=== PATIENT | male | born 1940 | race Caucasian/White ===

== ENCOUNTER 2017-12-27 11:03 | Inpatient (IN) | payer MEDICARE, OTHER ==
[2017-12-27] VITALS (9 sets, daily range): BP systolic 85–138; BP diastolic 72–112
[~2017-12-27] VITALS: Ht 185.4 cm; Wt 96.8 kg
[~2017-12-27 11:03] MED LIST: AMLODIPINE; HYDROCHLOROTHIAZIDE; METOPROLOL; MULTIVITAMIN
[2017-12-27] MEDS ORDERED: ONDANSETRON HCL INJ 2 MG/ML VIAL IV STA (11:29)
[2017-12-27] MEDS ORDERED: SODIUM CHLORIDE 0.9% 1000ML 1,000 ML IV STA (11:29)
[2017-12-27] MEDS ORDERED: ASPIRIN 81 MG CHEW TAB PO ONE ×3 (11:30→14:00)
[2017-12-27 11:47] LABS: BASOPHILS % 0.2 % (0.0-1.0); HEMOGLOBIN 14.8 g/dL (14.0-18.0); LYMPHOCYTES # (AUTO) 0.7 (1.0-3.2); LYMPHOCYTES % 3.7 % (18.0-39.1); MEAN CORPUSCULAR HEMOGLOBIN 28.7 pg (28-32); MEAN CORPUSCULAR HGB CONC 32.9 g/dL (31-35); MEAN CORPUSCULAR VOLUME 87.2 fL (81-99); MONOCYTES # (AUTO) 1.2 (0.2-0.8); MONOCYTES % 6.4 % (4.4-11.3); NEUTROPHILS # (AUTO) 16.5 (2.1-6.9); NEUTROPHILS % 87.1 % (38.7-80.0); PLATELET COUNT 153 x10e3/uL (140-360); RED BLOOD COUNT 5.16 x10e6/uL (4.3-5.7); RED CELL DISTRIBUTION WIDTH 16.5 % (11.7-14.4)
[2017-12-27 12:02] LABS: INR 1.25; PROTHROMBIN TIME 14.8 seconds (11.9-14.5)
[2017-12-27 12:13] LABS: ALBUMIN 3.8 g/dL (3.5-5.0); ALBUMIN/GLOBULIN RATIO 0.8 (0.8-2.0); ANION GAP 22.3 mmol/L (8-16); CALCIUM 9.8 mg/dL (8.4-10.2); CREATININE, SERUM 2.74 mg/dL (0.72-1.25); POTASSIUM 4.3 mmol/L (3.5-5.1)
[2017-12-27 12:20] LABS: CREATINE KINASE MB 23.4 ng/mL (0-5.0)
[2017-12-27] MEDS ORDERED: METOPROLOL TARTRATE INJ 1 MG/ML VIAL IV ONE (12:45)
--- NOTE | 2017-12-27 13:01 | Diagnostic Imaging Report ---
EXAM: ABDOMEN-1VIEW (KUB), DATE: 12/27/2017 11:29 AM INDICATION: Pain. Urinary retention. COMPARISON: None FINDINGS: LINES/TUBES: None BOWEL PATTERN: No evidence for obstruction. SOFT TISSUES: Bifurcated aorto iliac graft. Median sternotomy wires. Calcifications of the descending thoracic aorta. Vascular calcifications. LUNG BASES: Increased density in the lower left hemithorax may represent atelectasis and/or effusion.. BONES: No acute findings. Degenerative changes. IMPRESSION: Nonspecific, nonobstructive bowel gas pattern. Signed by: Dr. Heather Marquez M.D. on 12/27/2017 12:58 PM
--- NOTE | 2017-12-27 13:08 | Diagnostic Imaging Report ---
Examination: Single AP view of the chest. COMPARISON: None. INDICATION: Altered mental status. DISCUSSION: Lines/tubes: None. Lungs: Prominence of the pulmonary vasculature bilaterally may be part related to suboptimal inflation. Patchy density in the lower lobes, left greater than right may represent atelectasis, however, cannot exclude pneumonia including aspiration in the proper clinical setting. Pleura: There is no pneumothorax. Possible small left pleural effusion. Heart and mediastinum: The cardiac silhouette is moderately enlarged. Median sternotomy wires. Bones and soft tissues: No acute bony abnormalities. Degenerative changes in the thoracic spine. Orthopedic anchors projected on the right humeral head. Bilateral chronic rotator cuff pathology. IMPRESSION: 1. Bilateral lower lobe atelectasis versus pneumonia. 2. Mild bilateral pulmonary venous congestion. Signed by: Dr. Heather Marquez M.D. on 12/27/2017 1:04 PM
--- NOTE | 2017-12-27 13:12 | Diagnostic Imaging Report ---
ADDENDUM #1 Dose modulation, iterative reconstruction, and/or weight based adjustment of the mA/kV was utilized to reduce the radiation dose to as low as reasonably achievable. Signed by: Dr. Yusuf Hameed M.D. on 01/06/2018 4:47 PM ORIGINAL REPORT Exam: Head CT without contrast History: Altered mental status Comparison studies: Head CT 02/27/2011 and brain MRI 02/28/2011 Technique: Axial images were obtained from the skull base to the vertex. Coronal and sagittal images reconstructed from the axial data. Intravenous contrast: None Findings: Scalp: No abnormalities. Bones: Old bilateral parietal emerald holes. Brain sulci: Mildly prominent Ventricles: Moderate mild to moderate compensatory dilatation. No hydrocephalus. Extra-axial spaces: No masses, no fluid collection. Parenchyma: No mass, acute hemorrhage or large acute cortical vascular insults. Multiple chronic cortical and subcortical insults with encephalomalacia and/or gliosis (left orbitofrontal/frontal opercular, left superior temporal, left lateral occipital lobe, multifocal in the right superior and middle frontal lobes, along the perirolandic gyri, right superior and inferior parietal lobes and right occipital lobe). Some insults within the right frontal and right parietal lobes were acute on the brain MRI of 02/28/2011. Other chronic insult such as that in the right occipital lobe was not present on the previous CT MRI of 2010. Unchanged chronic lacunar insult in the bilateral subinsular white matter. Left subinsular insult was previously hemorrhagic as indicated on the previous MRI. Scattered ill-defined and confluent hypodensities throughout the supratentorial white matter are nonspecific but most compatible with chronic microvascular ischemic changes. Sellar/suprasellar region: No abnormalities. Craniocervical junction: Patent foramen magnum. No Chiari one malformation. Incidental findings: Atherosclerotic calcifications in the carotid siphons and intradural vertebral arteries. Bilateral intraocular lens replacements. IMPRESSION: No mass, acute hemorrhage or large acute cortical territorial vascular insult. Chronic findings: 1. Multiple chronic cortical and subcortical insults as described. 2. Moderate chronic microvascular ischemic changes with chronic bilateral subinsular lacunar insults. 3. Mild generalized volume loss. 4. 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 If there is concern for acute on chronic ischemia, brain MRI without/with IV contrast could further evaluate as warranted. Signed by: Dr. Yusuf Hameed M.D. on 12/27/2017 1:08 PM
[2017-12-27] MEDS ORDERED: ENOXAPARIN SODIUM INJ 100 MG/ML SYR SC STA (13:27)
[2017-12-27] MEDS ORDERED: METOPROLOL TARTRATE 25 MG TAB PO SCH (13:45)
[2017-12-27] MEDS ORDERED: ENOXAPARIN SODIUM INJ 100 MG/ML SYR SC SCH ×2 (13:45→14:30)
[2017-12-27] MEDS ORDERED: ETOMIDATE 2 MG/ML 10 ML INJ IV ONE (14:59)
[2017-12-27] MEDS ORDERED: WATER STERILE 10 ML VIAL ONE (14:59)
[2017-12-27] MEDS ORDERED: SUCCINYLCHOLINE CHLORIDE 20 MG/ML 10ML VIAL ONE (14:59)
[2017-12-27 15:25] LABS: CLARITY,URINE HAZY (CLEAR); COLOR,URINE ORANGE (YELLOW); LEUKOCYTE ESTERASE ,URINE NEGATIVE (NEGATIVE); NITRITE,URINE NEGATIVE (NEGATIVE)
[2017-12-27 15:26] LABS: BILIRUBIN,URINE 2+ (NEGATIVE); KETONES,URINE TRACE (NEGATIVE); PROTEIN,URINE DIPSTICK 1+ (NEGATIVE); URINE UROBILINOGEN 0.2 mg/dL (0.2 - 1)
[2017-12-27] MEDS ORDERED: VANCOMYCIN 1GM/NS 250 ML 250 ML IV ONE (15:30)
[2017-12-27 15:35] LABS: BACTERIA,URINE MANY /HPF; EPITHELIAL CELLS,URINE FEW /LPF
[2017-12-27] MEDS ORDERED: PIPERACILLIN/TAZO 2.25 GM 50 ML IV SCH ×2 (16:00→22:00)
[2017-12-27] MEDS ORDERED: ACETAMINOPHEN 325 MG TAB PO PRN (16:45)
[2017-12-27] MEDS ORDERED: ONDANSETRON HCL INJ 2 MG/ML VIAL IV PRN (16:45)
[2017-12-27 17:08] LABS: BASOPHILS % 0.2 % (0.0-1.0); HEMATOCRIT 43.1 % (38.2-49.6); HEMOGLOBIN 13.9 g/dL (14.0-18.0); LYMPHOCYTES # (AUTO) 0.8 (1.0-3.2); LYMPHOCYTES % 4.7 % (18.0-39.1); MEAN CORPUSCULAR HEMOGLOBIN 28.6 pg (28-32); MEAN CORPUSCULAR HGB CONC 32.3 g/dL (31-35); MEAN CORPUSCULAR VOLUME 88.7 fL (81-99); MONOCYTES # (AUTO) 1.4 (0.2-0.8); MONOCYTES % 7.7 % (4.4-11.3); NEUTROPHILS % 85.4 % (38.7-80.0); PLATELET COUNT 123 x10e3/uL (140-360); RED BLOOD COUNT 4.86 x10e6/uL (4.3-5.7); RED CELL DISTRIBUTION WIDTH 16.8 % (11.7-14.4)
[2017-12-27 17:31] LABS: ALBUMIN 3.2 g/dL (3.5-5.0); ALBUMIN/GLOBULIN RATIO 0.8 (0.8-2.0); ANION GAP 18.5 mmol/L (8-16); CALCIUM 8.8 mg/dL (8.4-10.2); CREATININE, SERUM 2.45 mg/dL (0.72-1.25); POTASSIUM 4.5 mmol/L (3.5-5.1)
--- NOTE | 2017-12-27 17:31 | Diagnostic Imaging Report ---
EXAM: CT Abdomen and Pelvis WITHOUT contrast INDICATION: Elevated LFTs. Pancreatitis. COMPARISON: None. TECHNIQUE: Abdomen and pelvis were scanned utilizing a multidetector helical scanner from the lung base to the pubic symphysis without administration of IV contrast. Absence of intravenous contrast decreases sensitivity for detection of focal lesions and vascular pathology. Coronal and sagittal reformations were obtained. Routine protocol was performed. IV CONTRAST: None. ORAL CONTRAST: Water RADIATION DOSE: Total DLP: 1524.20 mGy*cm Estimated effective dose: (DLP x 0.015 x size factor) mSv COMPLICATIONS: None FINDINGS: LINES and TUBES: None. LOWER THORAX: Bibasilar atelectasis the heart is moderately enlarged. Mediastinal wires. A fluoroscopic calcifications. HEPATOBILIARY: No focal hepatic lesions. No biliary ductal dilation. GALLBLADDER: 1.8 cm lamellated calculus within the gallbladder neck. No wall thickening. SPLEEN: No splenomegaly. PANCREAS: Mild diffuse pancreatic edema, associated with mild peripancreatic fat stranding and fluid, particularly about the tail is seen on axial image 28 series 4. No focal masses or ductal dilatation. . ADRENALS: No adrenal nodules KIDNEYS/URETERS: No hydronephrosis. No cystic or solid mass lesions. 1.8 cm above than water attenuation lesion in the lower pole of the left kidney is indeterminate. Right kidney on image 36. 1.8 cm cyst in the anterior interpolar region of the right kidney. 2 mm nonobstructing calculus in the upper pole of the right kidney. GI TRACT: No abnormal distention, wall thickening, or evidence of bowel obstruction. Diverticulosis predominantly involving the sigmoid without CT evidence of acute diverticulitis. Appendix is normal. PELVIC ORGANS/BLADDER: Urinary bladder decompressed by Hernandez catheter. Bladder contains air from instrumentation LYMPH NODES: No lymphadenopathy. 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 PERITONEUM / RETROPERITONEUM: No free air or fluid. BONES: There are degenerative changes in the lumbar spine. SOFT TISSUES: Small fat-containing left inguinal hernia. Tiny right fat-containing inguinal hernia. IMPRESSION: 1. Acute interstitial pancreatitis. 2. Cholelithiasis. No definite choledocholithiasis, however, if concern, consider further evaluation with MRCP. 3. 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 4. Colonic diverticulosis without acute diverticulitis. 5. 1.8 cm above than water attenuation lesion in the lower pole of the left kidney is indeterminate. Consider further evaluation with ultrasound of kidneys. Alternatively this may be evaluated the time of MRI. Signed by: Dr. Heather Marquez M.D. on 12/27/2017 5:28 PM
[2017-12-27] MEDS: MEROPENEM 500 MG VIAL IV SCH ×2 (17:45→23:45)
[2017-12-27] MEDS: SODIUM CHLORIDE 0.9% 1000ML 1,000 ML IV SCH ×2 (17:45→22:51)
[2017-12-27] MEDS ORDERED: MEROPENEM 500MG 500 MG in SODIUM CHLORIDE 0.9% 50ML 50 ML IV SCH (18:00)
--- NOTE | 2017-12-27 20:34 | History and Physical ---
CHIEF COMPLAINT: Encephalopathy and confusion. HISTORY OF PRESENT ILLNESS: A 77-year-old male with past medical history of Alzheimer's dementia who has progressively gotten worse according to the son at bedside. He also has a history hypertension, medically debilitated as well, comes into the ED with some underlying encephalopathy that has been ongoing for the last 2 or 3 days. Son at bedside reports that over the last 2 or 3 days, his father has been more fatigued and sleepy and has not been eating or drinking enough fluids at home. He also endorses having some questionable abdominal pain and suprapubic pain as well and they were not sure exactly what his true complaint was, so they brought him to the ED for further evaluation. Patient does not express himself in terms of his complaints. Son was concerned that he may have had some sort of UTI or a cause of abdominal pain leading to him having some confusion. On arrival here, patient was found to have elevated LFTs, elevated lipase level, and also elevated troponin concerning for underlying NSTEMI. Patient was also found to be in acute kidney injury as well. Patient looked significantly dehydrated on exam as well. Patient was seen and evaluated at bedside on the medical floor, currently much more stable, more alert and awake on examination according to the nursing staff. Patient was able to answer some questions that I gave him. REVIEW OF SYSTEMS PERTINENT POSITIVES: Abdominal pain, suprapubic pain, and dehydration. Unable to obtain the rest of the 14-point review of systems as the patient currently has some dementia. ALLERGIES: NO KNOWN DRUG ALLERGIES. HOME MEDICATIONS: He takes amlodipine, unknown dose; hydrochlorothiazide, unknown dose; metoprolol, unknown dose; and a multivitamin. PAST MEDICAL HISTORY: He has hypertension and underlying dementia. SURGICAL HISTORY: Reports none. FAMILY HISTORY: Hypertension and diabetes. SOCIAL HISTORY: No drugs. No alcohol. Does not smoke. He is , good social support. VITAL SIGNS: Temperature is 98.1, pulse 103, respiratory rate is 20, blood pressure 105/60, and pulse ox 93% on room air. LABORATORY DATA: White count was 18.9, hemoglobin is 14.8, hematocrit is 45, and platelets of 153. Coagulations: PT 14.8 and INR 1.24. Chemistry: Sodium 140, potassium 4.3, chloride is 20, anion gap of 22.3, BUN 67, creatinine is 2.7, and glucose 120. Lactic acid was 34.5. Total bilirubin is 3.9, AST 197, and ALT 255. CK 68, CK-MB 23, troponin 6, total protein 8.8, albumin 3.8, lipase 392, and amylase 658. Urinalysis; 2+ bilirubin, 1+ blood, trace ketones, rbc's 11-20, wbc's 6-10, and many bacteria. MICROBIOLOGY: Blood cultures pending. Urine cultures pending. IMAGING STUDIES: Chest x-ray shows bilateral lower lobe atelectasis versus pneumonia with bilateral pulmonary venous congestion, very mild. CT brain shows no mass, no acute hemorrhage or large acute cortical vascular insult. Shows some multiple chronic insults, but nothing acute according to the CT results and an x-ray of the abdomen was nonspecific, nonobstructive bowel gas pattern. PHYSICAL EXAM GENERAL: He is currently alert and awake, but not very oriented. This is his normal baseline due to his dementia. HEENT: Head: Normocephalic, atraumatic. Eyes: pupils equal and reactive to light bilaterally. Extraocular movements intact bilaterally. NECK: Supple with good range of motion. Throat: No evidence of any erythema or exudate in the posterior pharynx. Has poor dentition. PULMONARY: Clear to auscultation bilaterally. No wheezing. No rales. No rhonchi. No crackles appreciated. CARDIOVASCULAR: Positive S1 and S2. No murmurs, rubs, or gallops appreciated. ABDOMEN: Soft, nondistended, and nontender to palpation. Bowel sounds present. MUSCULOSKELETAL: Strength is 5/5 throughout. No evidence of any muscle deficits on examination. No weakness appreciated. NEUROLOGICAL: Cranial nerves II through XII are grossly intact. No evidence of any neurological deficits on exam. SKIN: Intact. Warm to touch. Good cap refill. PSYCHIATRIC: Normal affect and mood. EXTREMITIES: No edema. Good range of motion. ASSESSMENT AND PLAN 1. Septic shock with multiorgan failure -- I am not sure that the acute shock is from underlying cardiogenic due to non-ST elevation myocardial infarction versus a true infection leading to his multiorgan failure versus a combination of both. At this time, patient would give blood and urine cultures, started on broad-spectrum antibiotics IV Merrem and given already one dose of vancomycin. We are going to continue with IV fluid resuscitation as well. He also had elevated lactic acidosis. We are going to also repeat his labs now stat including a lactic acid. 2. Anion gap and metabolic acidosis with acute kidney injury, dehydration, and lactic acidosis -- At this time, his blood pressure is much improved. There is no need for any pressors. We are going to continue with IV fluid hydration. It is likely due to underlying dehydration as the etiology. We are going to continue with IV fluids for now and repeat labs in the morning. 3. Non-ST elevation myocardial infarction -- His troponin is elevated at 6, and his EKG showed some mild subtle changes in his EKG for some elevation of ST, but cardiology has been consulted to come and evaluate the patient. He has already been given a full dose of Lovenox and aspirin was already given. We will continue with cardioprotective medications at this time. He may need to be on heparin drip due to his underlying renal failure. 4. Elevated liver function tests and elevated lipase level -- This is likely secondary to his current shocked state leading to decreased perfusion leading to lactic acidosis. We will get CT abdomen and pelvis just to rule out any kind of intra-abdominal process. 5. Metabolic encephalopathy, now improved, with underlying baseline Alzheimer's dementia. 6. Prophylaxis will be full-dose Lovenox, then converted to heparin drip. 7. Fluid, electrolytes, and nutrients -- Continue with IV fluids, can start on a heart-healthy diet. We will keep him n.p.o. after midnight. 8. Disposition: ICU. Cardiology has been consulted. I spent more than 45 minutes of critical care time on this case reviewing the chart and discussing case with nursing staff and family. Job#: [id number] ZAINAB
[2017-12-27 20:51] LABS: CREATINE KINASE MB 17.8 ng/mL (0-5.0)
[2017-12-27] MEDS ORDERED: DIGOXIN INJ 0.25 MG/ML 2 ML AMP IV ONE (21:30)
[2017-12-27] MEDS ORDERED: MIDODRINE 2.5 MG TAB PO STA (22:37)
[2017-12-27] MEDS ORDERED: HYDROCODONE/APAP 5MG-325MG TAB PO PRN (22:45)
[2017-12-27] MEDS: MORPHINE SULFATE 2 MG/ML SYR IV PRN (23:45)
[2017-12-28] VITALS (105 sets, daily range): BP systolic 36–140; BP diastolic 24–90
[2017-12-28] MEDS ORDERED: AMIODARONE HCL 100 ML IV ONE (01:35)
[2017-12-28] MEDS ORDERED: AMIODARONE 900MG 500 ML IV ONE (01:35)
[2017-12-28] MEDS ORDERED: ACETAMINOPHEN 1000 MG/100 ML IV STA (01:58)
[2017-12-28] MEDS ORDERED: AMIODARONE HCL 150 MG/100 ML BAG IV ONE (02:00)
[2017-12-28] MEDS: AMIODARONE HCL 900 MG in DEXTROSE 5% 500ML 500 ML IV SCH (02:00)
--- NOTE | 2017-12-28 02:32 | Diagnostic Imaging Report ---
EXAM: CHEST SINGLE (PORTABLE), AP 1 view INDICATION: Endotracheal tube placement COMPARISON: AP view of the chest December 27, 2017 FINDINGS: LINES/TUBES: The endotracheal tube terminates 5 cm above the priya LUNGS: Pulmonary edema and left lower lobe atelectasis. PLEURA: No effusions or pneumothorax. HEART AND MEDIASTINUM: Cardiomegaly and surgical changes of coronary artery bypass. BONES AND SOFT TISSUES: No acute findings. IMPRESSION: The endotracheal tube terminates 5 cm above the priya. Stable cardiomegaly and pulmonary edema. Left lower lobe atelectasis versus pneumonia. Signed by: Dr. Susanne Zavala M.D. on 12/28/2017 2:28 AM
[2017-12-28 03:08] LABS: ABG HCO3 16 mmol/L (23-28); ABG PCO2 37 mmHg (41-51); ABG PH 7.26 (7.31-7.41); ABG PO2 84 mmHg (80-105)
[2017-12-28] MEDS: PROPOFOL IV EMULSION 10MG/ML 100 ML IV PRN ×5 (03:31→23:35)
[2017-12-28 04:53] LABS: BASOPHILS % 0.1 % (0.0-1.0); HEMATOCRIT 36.6 % (38.2-49.6); LYMPHOCYTES # (AUTO) 0.5 (1.0-3.2); LYMPHOCYTES % 3.9 % (18.0-39.1); MEAN CORPUSCULAR HEMOGLOBIN 28.5 pg (28-32); MEAN CORPUSCULAR HGB CONC 32.8 g/dL (31-35); MEAN CORPUSCULAR VOLUME 86.9 fL (81-99); MONOCYTES % 7.4 % (4.4-11.3); NEUTROPHILS # (AUTO) 11.7 (2.1-6.9); NEUTROPHILS % 87.1 % (38.7-80.0); PLATELET COUNT 116 x10e3/uL (140-360); RED BLOOD COUNT 4.21 x10e6/uL (4.3-5.7); RED CELL DISTRIBUTION WIDTH 16.3 % (11.7-14.4)
[2017-12-28] MEDS: MEROPENEM 500 MG VIAL IV SCH ×4 (05:06→23:19)
[2017-12-28 05:16] LABS: ALBUMIN 2.6 g/dL (3.5-5.0); ALBUMIN/GLOBULIN RATIO 0.7 (0.8-2.0); ANION GAP 17.8 mmol/L (8-16); CHOL/HDL RATIO 3.5 (3.9-4.7); CREATININE, SERUM 2.58 mg/dL (0.72-1.25); POTASSIUM 3.8 mmol/L (3.5-5.1)
[2017-12-28 05:23] LABS: CREATINE KINASE MB 12.6 ng/mL (0-5.0)
[2017-12-28] MEDS ORDERED: ACETAMINOPHEN 1000 MG/100 ML IV SCH (06:00)
[2017-12-28] MEDS: SODIUM CHLORIDE 0.9% 1000ML 1,000 ML IV SCH ×3 (06:37→17:34)
[2017-12-28] MEDS ORDERED: MIDODRINE 2.5 MG TAB PO SCH (08:00)
[2017-12-28] MEDS ORDERED: ASPIRIN 325 MG TAB PO SCH (09:00)
[2017-12-28] MEDS ORDERED: NOREPINEPHRINE 8 MG/D5W 250 ML 250 ML ONE (10:35)
[2017-12-28] MEDS ORDERED: NOREPINEPHRINE INJ 4MG/4ML 8 MG in DEXTROSE 5% 250ML 250 ML IV SCH (10:45)
[2017-12-28] MEDS ORDERED: NOREPINEPHRINE INJ 4MG/4ML 8 MG in DEXTROSE 5% 250ML 250 ML IV PRN (12:45)
[2017-12-28] MEDS ORDERED: HEPARIN 25,000U/0.45% NS 250ML 1,000 UNIT in SODIUM CHLORIDE 0.9% 250ML 0 ML IV SCH (12:45)
[2017-12-28] MEDS ORDERED: ENOXAPARIN SODIUM INJ 100 MG/ML SYR SC SCH (13:30)
[2017-12-28] MEDS: HEPARIN 25,000U/0.45% NS 250ML 250 ML IV SCH (14:01)
--- NOTE | 2017-12-28 15:18 | Progress Note ---
DATE: December 28, 2017 SUBJECTIVE: The patient overnight decompensated. Went into respiratory failure requiring intubation, and started on low-dose of Levophed for blood pressure support. The patient is currently on a mechanical ventilator. I updated the family and the son, Garth, by phone. Currently, there is no family members except for a friend at bedside. He also had AFib overnight. OBJECTIVE VITALS: His heart rate currently is 81, blood pressure 103/72, pulse ox on 60% FIO2, PEEP of zero. He is intubated. GENERAL: Currently intubated and sedated. HEENT: Head is normocephalic and atraumatic. Eyes: Pupils equal, round and reactive to light bilaterally. NECK: Supple. Good range of motion. RESPIRATORY: He is intubated and sedated. CARDIOVASCULAR: Positive S1 and S2. No murmurs, rubs or gallops appreciated. He also has an irregularly irregular rhythm. ABDOMEN: Soft, nondistended and nontender to palpation. Bowel sounds present. MUSCULOSKELETAL: Intubated and sedated. PSYCHIATRIC: Intubated and sedated. NEUROLOGICAL: Intubated and sedated. EXTREMITIES: No edema. LAB FINDINGS: White count is 13, hemoglobin 12, hematocrit 36, and platelets of 116,000. Coagulation: PT 14.8, INR 1.25, and PTT 39. Chemistry: Sodium 141, potassium 3.8, chloride 110, bicarb 17, BUN 64, creatinine 2.5, glucose 100. Lactic acid 18 which is normal. Calcium 8. Total bilirubin is 2.9, AST 102, ALT 139, alk phos 85. Troponin is 9.4. Albumin 2.6, LDL 70, lipase of 96. MICROBIOLOGY: His blood and urine cultures are no growth to date and still pending. Chest x-ray performed early this morning showed the ET tube 5 cm above the priya. He does have some left lower lobe atelectasis versus pneumonia. ASSESSMENT AND PLAN 1. Septic shock with multiorgan failure: Currently, he is on intravenous Merrem. We are going to get a vancomycin trough. I am not sure if this is the source of infection leading to his shock or some other etiology, which could be from pancreatitis from hypovolemic shock or cardiogenic shock. Will get a vancomycin trough before we give him any more vancomycin. Blood and urine cultures are pending. Will also get a.m. labs, including lactic acid. Pulmonary critical care consulted. 2. Acute hypoxic respiratory failure: Currently, intubated and sedated on FIO2 of 60% and PEEP of zero. Pulmonary critical care consulted. 3. Atrial fibrillation with rapid ventricular response: He is currently on amiodarone drip. Cardiology is following. On heparin drip. 4. Anion gap metabolic acidosis secondary to acute kidney injury: Creatinine is slightly elevated at 2.5. Urine output is 175 mL since this morning. Blood pressure is much improved. He may have went into a slight acute tubular necrosis. We are going to continue to monitor and get a.m. labs. 5. Frb-DD-kfsmixn elevation myocardial infarction: Troponins are elevated at 9. He is currently on heparin drip and cardioprotective meds, including aspirin. Cardiology following. 6. Elevated transaminases: His liver function tests have improved slightly. Will repeat labs in the morning. This is likely due to his underlying shock state. 7. Acute pancreatitis: Computerized tomography of the abdomen and pelvis consistent with an edematous pancreas. Lipase improved. Will continue to repeat lipase in the morning and monitor closely. 8. Metabolic encephalopathy: Now, currently intubated and sedated. 9. Alzheimer dementia and questionable history of Parkinson disease in the past. 10. Prophylaxis: Will be on a heparin drip. 11. Fluid, electrolytes and nutrients: We are going to start nasogastric tube feeds and give all medications through the nasogastric. 12. Disposition: Intensive care unit. Cardiology, pulmonary critical care have been consulted. I spent more than 35 minutes in critical care time on this case reviewing overall plan of care with the son by phone, Garth Zavala, as well as nursing staff and reviewing the entire chart. Job#: [id number] CYRIL
[2017-12-28] MEDS: MIDODRINE 2.5 MG TAB NG SCH ×2 (16:15→20:49)
[2017-12-28] MEDS: SODIUM BICARBONATE 650 MG TAB NG SCH (16:16)
[2017-12-28 16:26] LABS: ABG PCO2 29 mmHg (41-51); ABG PO2 78 mmHg (80-105)
[2017-12-28 16:27] LABS: ABG HCO3 18 mmol/L (23-28)
[2017-12-28] MEDS ORDERED: ENOXAPARIN 30 MG/0.3 ML SYR SC SCH (17:00)
--- NOTE | 2017-12-28 21:43 | Consultation ---
DATE OF CONSULTATION: December 28, 2017 PULMONARY MEDICINE CONSULT PRIMARY CARE DOCTOR: Dr. Monroy HISTORY: Mr. Zavala is a pleasant 77-year-old gentleman with acute respiratory failure. Patient was admitted on December 27, 2017. Patient, at that time, was having some altered mental status. He was living at home. He has some baseline dementia. When he came to the emergency room, white count was 19,000, BUN 67, creatinine 2.7. Lactic acid 34 with some mildly elevated LFTs. He did develop some troponin elevation with time demonstrating troponin to 9.4. Albumin 2.6, lipase 96 after originally being 392. Chest x-ray with left-sided infiltrate. Abdominal CT showed some mild enlargement of pancreas, not otherwise specified and otherwise, no acute findings. Patient was increasingly appearing to choke on secretions. Blood pressure was starting to fall. Saturation was at 83% with heart rate 150s. He was having more trouble breathing. Of note, this was after screaming and getting some medicines. Therefore, it was elected to intubate him for aggressive safety measures. PAST MEDICAL HISTORY: Hypertension, dementia, other history mostly unknown. MEDICATIONS: Medication list reviewed per electronic record. Currently includes meropenem. ALLERGIES: NO KNOWN DRUG ALLERGIES. SOCIAL HISTORY: Unknown, but he is reportedly with good social support. No drugs, no alcohol, no smoking per records. FAMILY HISTORY: Noncontributory. REVIEW OF SYSTEMS: Could not get as he is intubated. OBJECTIVE VITAL SIGNS: Afebrile right now, vital signs more stable according to record. GENERAL: No acute distress, on ventilator sedated. HEENT: Normocephalic, atraumatic. NECK: Supple. Throat midline. LUNGS: Bilateral air entry, rare crackles. CARDIOVASCULAR: S1, S2. No murmurs, rubs or gallops. ABDOMEN: Soft, nontender. EXTREMITIES: No clubbing, no cyanosis. There is trace foot edema. INTEGUMENT: No rash or purpura. LABS: Labs reviewed per record. IMPRESSIONS AND PLAN 1. Acute respiratory failure. 2. Encephalopathy, delirium, and agitation. 3. Clinical aspiration. 4. Abnormal chest radiography, treat for pneumonia. 5. Urinary tract infection with 6-10 white cells per high power field. 6. Abnormal computerized axial tomography scan, possible pancreatitis. 7. Shock, septic. Mild at this time on low-dose pressors. 8. Atrial fibrillation with rapid rate often to 150s. 9. Chronic kidney disease and possible acute kidney disease. 10. Elevated liver function tests, but mostly transaminitis. 11. Treat for acute coronary syndrome, myocardial infarction with high troponins. 12. Moderate protein malnutrition. At this time, will check an ultrasound of right upper quadrant, as well as renal. Check sputum culture. Ventilator will be adjusted. Will give him another day on the ventilator and will see if issues related to intubation are more clear. For now, it is not clear if this is predominantly pneumonia or predominantly urinary tract infection or predominantly another issue such as pancreatitis or a persistent atrial fibrillation that caused the patient to go into respiratory failure. Will follow up closely. Gastrointestinal prophylaxis and deep venous thrombosis prophylaxis are reasonably indicated at this time. Will add these. Thank you very much, Dr. Larios and Dr. Monroy, for allowing me to participate in the care of Mr. Zavala. Do not hesitate to contact me if I can help in any way. Job#: [id number] JOHNSON
[2017-12-28] MEDS: MORPHINE SULFATE 2 MG/ML SYR IV PRN (22:31)
[2017-12-29] VITALS (65 sets, daily range): BP systolic 82–158; BP diastolic 35–102
[2017-12-29] MEDS: SODIUM CHLORIDE 0.9% 1000ML 1,000 ML IV SCH ×3 (02:29→19:33)
[2017-12-29] MEDS: AMIODARONE HCL 900 MG in DEXTROSE 5% 500ML 500 ML IV SCH (02:30)
[2017-12-29 04:34] LABS: BASOPHILS % 0.3 % (0.0-1.0); EOSINOPHILS % 0.3 % (0.0-6.0); HEMATOCRIT 36.6 % (38.2-49.6); HEMOGLOBIN 11.8 g/dL (14.0-18.0); LYMPHOCYTES # (AUTO) 0.7 (1.0-3.2); MEAN CORPUSCULAR HEMOGLOBIN 28.7 pg (28-32); MEAN CORPUSCULAR HGB CONC 32.2 g/dL (31-35); MEAN CORPUSCULAR VOLUME 89.1 fL (81-99); MONOCYTES % 8.3 % (4.4-11.3); NEUTROPHILS # (AUTO) 10.3 (2.1-6.9); NEUTROPHILS % 84.2 % (38.7-80.0); PLATELET COUNT 132 x10e3/uL (140-360); RED BLOOD COUNT 4.11 x10e6/uL (4.3-5.7); RED CELL DISTRIBUTION WIDTH 16.7 % (11.7-14.4)
[2017-12-29 04:56] LABS: CALCIUM 7.8 mg/dL (8.4-10.2); CREATININE, SERUM 2.15 mg/dL (0.72-1.25); POTASSIUM 3.5 mmol/L (3.5-5.1)
[2017-12-29 05:14] LABS: ANION GAP 15.5 mmol/L (8-16)
[2017-12-29 05:37] LABS: MAGNESIUM 1.5 MG/DL (1.3-2.1); PHOSPHORUS 2.2 MG/DL (2.3-4.7)
[2017-12-29] MEDS: MEROPENEM 500 MG VIAL IV SCH ×4 (06:16→23:12)
[2017-12-29] MEDS: PROPOFOL IV EMULSION 10MG/ML 100 ML IV PRN ×2 (06:18→09:45)
--- NOTE | 2017-12-29 06:56 | Diagnostic Imaging Report ---
EXAM: CHEST SINGLE (PORTABLE), AP 1 view INDICATION: CHF COMPARISON: 12/28/2017 FINDINGS: LINES/TUBES: The endotracheal tube terminates 2 cm above the priya. NG tube body of stomach. LUNGS: Deceasing pulmonary edema and left lower lobe atelectasis. PLEURA: No effusions or pneumothorax. HEART AND MEDIASTINUM: Cardiomegaly and surgical changes of coronary artery bypass. BONES AND SOFT TISSUES: No acute findings. IMPRESSION: Decreasing pulmonary edema. Signed by: Dr. Susanne Zavala M.D. on 12/29/2017 6:53 AM
[2017-12-29] MEDS: PANTOPRAZOLE 40 MG 10ML VIAL IV SCH (10:51)
[2017-12-29] MEDS: MIDODRINE 2.5 MG TAB NG SCH ×3 (10:51→20:35)
[2017-12-29] MEDS: SODIUM BICARBONATE 650 MG TAB NG SCH ×2 (10:52→18:29)
--- NOTE | 2017-12-29 11:06 | Diagnostic Imaging Report ---
PROCEDURE:US GUIDANCE FOR VASCULAR ACCESS COMPARISON:None. INDICATIONS:rt ijv central line FINDINGS:Ultrasound evaluation of potential access sites was performed. After successfully identifying a patent vessel, US guidance was used to puncture the right internal jugular vein. A permanent recording was created for the patient record. CONCLUSION:Right internal jugular vein access with ultrasound guidance. Please refer to the dictation for the right IJ vein central line placement for further details. Dictated by: JES LOMAX M.D. on 12/29/2017 at 11:12 Electronically approved by: JES LOMAX M.D. on 12/29/2017 at 11:12
[2017-12-29] MEDS ORDERED: POTASSIUM PHOSPHATE 20 MM in SODIUM CHLORIDE 0.9% 250ML 250 ML IV ONE (11:30)
--- NOTE | 2017-12-29 11:35 | Diagnostic Imaging Report ---
PROCEDURE: A single AP view of the chest. COMPARISON: Chest radiograph 12/29/17. INDICATIONS: CENTRAL LINE FINDINGS: Lines/tubes: ET tube terminates 2 cm above the priya. NG Tube terminates in the stomach. Interval placement of right IJ non-tunneled central line with tip in the expected region of the cavoatrial junction. Lungs: Low lung volumes. Increasing perihilar and interstitial opacities. Persistent left lower lung opacity. Pleura: Possible small left pleural effusion. No evidence of pneumothorax. Heart and mediastinum: The cardiomediastinal silhouette is unchanged. Status post CABG. Bones: No acute bony abnormality. Right sided rotator cuff repair anchors are present. IMPRESSION: Right IJ central line in appropriate position at the cavoatrial junction. No evidence of pneumothorax. Decreasing lung volumes with increasing pulmonary interstitial edema. Left lower lobe opacity, likely atelectasis. Dictated by: JES LOMAX M.D. on 12/29/2017 at 11:41 Electronically approved by: JES LOMAX M.D. on 12/29/2017 at 11:41
[2017-12-29 11:36] LABS: INR 1.22; PROTHROMBIN TIME 14.5 seconds (11.9-14.5)
--- NOTE | 2017-12-29 12:34 | Diagnostic Imaging Report ---
EXAM: Complete Abdominal Ultrasound INDICATION: \S\elevated creatinine, elevated lfts COMPARISON: CT dated 12/27/2017 TECHNIQUE: Transverse and longitudinal images of the upper abdomen were obtained. FINDINGS: Very limited study. Patient was intubated and could not follow breathing instructions. Liver: Size: 14.8 cm in the right midclavicular line, normal Appearance: Normal echogenicity, mildly nodular contour Mass: No focal masses Spleen: Size: 9.2 cm in length, normal Echogenicity: Normal Mass: No focal masses Gallbladder: Stones/Sludge: Small gallstone present. Wall: 0.3 cm Appearance: No pericholecystic fluid or hydrops. Sonographic Otero's Sign: Negative Bile Ducts: Intrahepatic Ducts: No dilatation Extrahepatic Ducts: Common bile duct measures 0.2 cm, no dilatation Pancreas: Mildly edematous. Right Kidney: Size: 10.4 cm, lobulated contour. Echogenicity: Normal Parenchymal thickness: Normal Collecting System: No hydronephrosis Stone: None Cyst/Mass: 1 cm midpole cyst. Left Kidney: Size: 11.5 cm, lobulated contour. Echogenicity: Normal Parenchymal thickness: Normal Collecting System: No hydronephrosis Stone: None Cyst/Mass: 2.1 cm mid/inferior pole cyst. Vessels: Aorta: Not well visualized. Inferior Vena Cava: Visualized portions are normal Main Portal Vein: 1.1 cm, normal size with hepatopetal flow. Free Fluid: No ascites or pleural effusion IMPRESSION: Limited study as above. Mild hepatic contour nodularity, suggestive of cirrhotic changes. No definite focal mass. Cholelithiasis without evidence of cholecystitis. Mildly edematous pancreas. Signed by: Dr. Spencer Aleman MD on 12/29/2017 12:31 PM
[2017-12-29] MEDS ORDERED: DEXMEDETOMIDINE HCL 200 MCG in SODIUM CHLORIDE 0.9% 50ML 48 ML IV PRN (12:45)
[2017-12-29] MEDS: HEPARIN 25,000U/0.45% NS 250ML 250 ML IV SCH (12:53)
--- NOTE | 2017-12-29 13:45 | Diagnostic Imaging Report ---
PROCEDURE:Right IJ non tunneled central venous catheter placement with ultrasound guidance COMPARISON:None. INDICATIONS: Not provided. COMPLICATIONS: No immediate complications MEDICATIONS: 1% subcutaneous lidocaine 3 cc BLOOD LOSS: Minimal PROCEDURE: Informed consent was obtained from the patient's healthcare proxy. Ultrasound demonstrated that the right internal jugular vein was patent and compressible. Image was stored for the record. The patient was prepped and draped in sterile fashion. Local anesthesia with 3 cc of 1% subcutaneous lidocaine was administered. With ultrasound guidance, a micropuncture needle was advanced into the internal jugular vein. An .018'' wire was placed. The needle was exchanged for a micropuncture sheath. The .018'' wire was exchanged for an .035'' Amplatz wire. Dilatation was performed. Subsequently a 7 Fr x 16 cm non-tunneled triple lumen central venous line was placed. All three lumens had brisk aspiration of blood and were flushed with normal saline. The catheter was secured with two Ethilon subcutaneous sutures and a sterile bandage was placed. CONCLUSION: Right internal jugular vein triple lumen non-tunneled central venous catheter placement with ultrasound guidance as above. Plan for post procedural chest radiograph prior to catheter use. Dictated by: JES LOMAX M.D. on 12/29/2017 at 13:51 Electronically approved by: JES LOMAX M.D. on 12/29/2017 at 13:51
--- NOTE | 2017-12-29 15:09 | Progress Note ---
DATE: December 29, 2017 SUBJECTIVE: Patient is still intubated. Patient was in the process of doing a trial to see if he could be extubated but was very tachypneic and tachycardic in which he went back on sedation. Propofol was discontinued and started on Precedex. He is on a very low dose of Levophed. Patient making good urine output. OBJECTIVE VITAL SIGNS: Temperature is 98.8, pulse is 90, respiratory rate is 18, blood pressure is 124/59. He is on a mechanical ventilator 96%, PEEP of 5, FiO2 of 40%. LAB FINDINGS: White count is 12.2, hemoglobin 11.8, hematocrit 36.6, platelets of 132. ABG--pH of 7.4, PO2 of 78, pCO2 of 29 and his bicarb is 18. Chemistry--sodium 141, potassium 3.5, chloride 112, bicarb 17, anion gap of 15, BUN 56, creatinine 2.1, glucose 98, magnesium 1.5, phosphorous is 2.2. Urinalysis, none. Toxicology: Vanc trough 7.8. MICROBIOLOGY: Urine cultures negative. Blood cultures negative. Sputum cultures negative. IMAGING STUDIES: Chest x-ray showed decreasing lung volumes with increasing pulmonary interstitial edema. Left lower lobe opacity likely atelectasis. PHYSICAL EXAMINATION GENERAL: He is currently intubated and sedated. HEENT: Head normocephalic, atraumatic. Eyes, pupils equally round and reactive to light bilaterally. Extraocular movements intact bilaterally. NECK: Supple. Good range of motion throughout. He has an ET tube. PULMONARY: Intubated and sedated. Breath sounds are good. No crackles, no rales, no rhonchi. CARDIOVASCULAR: Positive S1, S2. No murmurs, rubs, or gallops appreciated. ABDOMEN: Soft, nondistended, nontender to palpation. Bowel sounds present. MUSCULOSKELETAL: Intubated and sedated. PSYCHIATRIC: Intubated and sedated. NEUROLOGIC: Intubated and sedated. EXTREMITIES: He has bilateral upper extremity swelling. ASSESSMENT AND PLAN 1. Septic shock with multiorgan failure--currently his LFTs are downtrending as well as his lipase levels. We are going to continue with IV Merrem for now. His vanc trough is low and we will continue with IV antibiotics. His blood and urine cultures were negative to date. Pulmonary critical care is following. 2. Acute hypoxemic respiratory failure. Currently FiO2 of 40%, PEEP of 5. His ABG looks good. Pulmonary following. 3. Atrial fibrillation with rapid ventricular response--his rate is well controlled, still irregular, irregular. He is on amiodarone. Cardiology is following. He is also on heparin drip. 4. Anion gap metabolic acidosis secondary to acute kidney injury--his creatinine is downtrending likely at his baseline as well. He has good urine output. Blood pressure is stable. Get a.m. labs. 5. Qto-TF-jqxydtj elevation myocardial infarction--troponins are still elevated, he is on cardioprotective meds including heparin drip, cardiology following, patient will need cardiac catheterization prior to discharge once he improves. 6. Elevated transaminases--improving, monitor. 7. Acute pancreatitis--lipase levels are improving, he is on tube feeds now, get a.m. labs. 8. Metabolic encephalopathy now intubated and sedated. 9. Alzheimer's dementia with questionable history of Parkinson's disease. 10. Prophylaxis will be heparin drip. 11. Fluid, electrolytes and nutrients. He is on tube feeds. 12. Disposition: ICU, cardiology, pulmonary critical care have been consulted. Job#: [id number] LISSY
[2017-12-29] MEDS ORDERED: ASPIRIN 325 MG TAB NG ONE (17:45)
[2017-12-29] MEDS ORDERED: FUROSEMIDE INJ 10 MG/ML 4 ML VIAL IV ONE (17:45)
[2017-12-29] MEDS ORDERED: CLOPIDOGREL BISULFATE 75 MG TAB PO ONE (19:00)
--- NOTE | 2017-12-29 19:39 | Consultation ---
DATE OF CONSULTATION: December 29, 2017 CARDIOLOGY CONSULTATION REASON FOR CONSULT: Fij-XY-gkqhjgvxc GA. CHIEF COMPLAINT: Could not be obtained as the patient was intubated and sedated. HISTORY OF PRESENT ILLNESS: Mr. Zavala is a 77-year-old man admitted on December 27, 2017, for altered mental status. Patient has baseline Alzheimer's dementia. On presentation to the ER he was found to be in septic shock with white count of 19,000, creatinine of 2.7, a lactic acid of 34 with elevated LFTs. He progressively became hypertensive and oxygen sats dropped to 83% with heart rates in the 150s with atrial fibrillation with rapid ventricular response. At this point he had to be intubated and admitted to the ICU. We are consulted for management of his suspected mfh-OG-eekjqrmsr GA with troponin of 9.46 as well as atrial fibrillation with rapid ventricular response. PAST MEDICAL HISTORY 1. Alzheimer's dementia. 2. Hypertension. REVIEW OF SYSTEMS: Review of systems could not be obtained as the patient is intubated and sedated. FAMILY HISTORY: Of hypertension and diabetes. SOCIAL HISTORY: Per the chart review. No alcohol or drug use. No smoking. PHYSICAL EXAMINATION VITAL SIGNS: Temperature 99.1, pulse 79, respiratory rate 18, blood pressure 127/56 on 2 mcg of Levophed, satting 98% on mechanical ventilator. EYES: Conjunctivae clear. EARS, NOSE, MOUTH AND THROAT: Intubated. Dry mucosa. No bleeding. NECK: Jugular venous distention up to the angle of the jaw. MUSCULOSKELETAL: No atrophy or abnormal movements. EXTREMITIES: No clubbing or cyanosis. SKIN: No venous stasis changes or ulcers. GENERAL: A well-developed elderly white man, intubated and sedated. CARDIOVASCULAR: PMI nondisplaced. Irregular rhythm. Normal S1 and S2. Difficult auscultation due to mechanical ventilation. A 2/6 holosystolic murmur heard at the apex. Normal carotid pulses. Palpable radial pulses. Weak lower extremity pulses, 1+ lower extremity edema bilaterally. RESPIRATORY: Intubated. Mechanical ventilation sounds. Decreased left lower lobe breath sounds. Crackles on the right. ABDOMEN: Soft. No masses. NEURO AND PSYCH: Intubated and sedated. MEDICATIONS: Home and current medical regimen reviewed. LABORATORY DATA: Reviewed. Notable for troponin of 9.5. IMAGING DATA: Reviewed. Chest x-ray shows pulmonary edema. TELEMETRY DATA: Reviewed. Shows atrial fibrillation. ELECTROCARDIOGRAM: Reviewed. Shows atrial fibrillation with RVR, ST-T changes suggestive of inferolateral ischemia. ECHOCARDIOGRAM: Reviewed by me today. Shows severely depressed EF about 25% to 30% with inferior and inferoseptal hypokinesis, moderate mitral regurgitation. ASSESSMENT 1. Qca-TX-zjwtqmohb myocardial infarction. 2. Cardiogenic shock. 3. Septic shock. 4. Acute systolic and diastolic heart failure. 5. Atrial fibrillation with rapid ventricular response. 6. Hypertension. 7. Alzheimer's dementia. 8. Acute kidney injury. PLAN: Given his septic shock and acute kidney injury as well as him being critically ill, patient is not a candidate for invasive cardiovascular procedures at this time. Agree with continuing IV heparin as well as aspirin for medical therapy of his zvw-NE-nfkwzycqr GA. Would also add Plavix 75 mg daily after a 300-mg load. Add low-dose beta blockers once the patient is off pressors. Agree with continuing IV amiodarone for now for rate control of atrial fibrillation given hypertension. Once acute illness improves, will discuss with patient and family about options for coronary angiography at that time. Thank you for this consult. Will continue to follow. Job#: [id number] KILEY
--- NOTE | 2017-12-29 21:45 | Diagnostic Imaging Report ---
EXAM: ABDOMEN-1VIEW (KUB) DATE: 12/29/2017 8:33 PM Time stamp on exam: 2054 INDICATION: NG tube placement COMPARISON: Chest x-ray on 12/29/2017 FINDINGS: LINES/TUBES: NG tube is visualized with tip overlying the left upper quadrant at the level of the gastric body. Partially visualized endotracheal tube 4.5 cm above the priya. Midline sternotomy wires are stable BOWEL PATTERN: No evidence for obstruction. SOFT TISSUES: Extensive atherosclerotic calcification of the thoracoabdominal aorta. Vascular stent graft is noted at the mid abdominal aorta LUNG BASES: Left pleural effusion and atelectasis. BONES: Degenerative changes of the thoracolumbar spine. IMPRESSION: NG tube in good position. Signed by: Dr. Barry Salas M.D. on 12/29/2017 9:42 PM
[2017-12-29] MEDS: DEXMEDETOMIDINE HCL 200 MCG in SODIUM CHLORIDE 0.9% 50ML 48 ML IV PRN (22:30)
--- NOTE | 2017-12-29 23:38 | Progress Note ---
DATE: December 29, 2017 PULMONARY MEDICINE PROGRESS NOTE SUBJECTIVE: Mr. Zavala was seen and examined at bedside. Heparin IV drip is ongoing. The patient remains on ventilator, intubated. Minimal ventilation 8 L per minute. The patient was given weaning trial. He was very tachypneic today. Chest x-ray with decreased edema. Sputum, blood culture, urine culture all negative today. 1.9 L in, 1.3 L out. He is on amiodarone drip 0.5 mg per minute, propofol 20 mcg per minute, Levophed 2.5 mg per minute. REVIEW OF SYSTEMS: Cannot get reliably as he is intubated. OBJECTIVE VITAL SIGNS: Afebrile, vital signs noted per electronic record. GENERAL: In no acute distress, alert and calm, but when he is awake or when sedation is let off he really starts to cough. HEENT: Normocephalic, atraumatic. Throat midline. NECK: Supple. LUNGS: Bilateral air entry. A few crackles. CARDIOVASCULAR: S1, S2. No murmurs, rubs or gallops. ABDOMEN: Soft, nontender. EXTREMITIES: No clubbing, no cyanosis. There is no edema. INTEGUMENT: No rash. No purpura. LABS: Creatinine 2.1, potassium 2.5. White count 12, better. Phosphorus 2.2, magnesium 1.5, lipase normal. IMPRESSION 1. Acute respiratory failure, intubated. 2. Pulmonary edema, congestive heart failure, 25% to 30% left ventricular ejection fraction. 3. Treat for pneumonia. 4. Possible urinary tract infection. 5. Lokoy-ak-ernfrxc kidney failure. 6. Hypophosphatemia, relative hypokalemia. PLAN: Continue serial evaluation. Will give sedation all day to the patient. Wean trial was given for which he became very tachypneic. Patient with electrolyte repletion required. Continue DVT prophylaxis. Patient also on GI prophylaxis at this time. Wean pressor as tolerated. Continue propofol, but will have to consider getting off this, low blood pressure weaning problem. Job#: [id number] SHERRY
[2017-12-30] VITALS (73 sets, daily range): BP systolic 80–159; BP diastolic 28–94
[2017-12-30] MEDS: DEXMEDETOMIDINE HCL 200 MCG in SODIUM CHLORIDE 0.9% 50ML 48 ML IV PRN ×2 (01:48→22:32)
[2017-12-30] MEDS: MORPHINE SULFATE 2 MG/ML SYR IV PRN ×2 (03:21→19:54)
[2017-12-30] MEDS: MEROPENEM 500 MG VIAL IV SCH ×4 (05:02→23:22)
[2017-12-30 05:48] LABS: BASOPHILS % 0.4 % (0.0-1.0); EOSINOPHILS # (AUTO) 0.1 (0.0-0.4); EOSINOPHILS % 0.6 % (0.0-6.0); HEMATOCRIT 34.6 % (38.2-49.6); HEMOGLOBIN 11.4 g/dL (14.0-18.0); LYMPHOCYTES # (AUTO) 0.9 (1.0-3.2); LYMPHOCYTES % 9.3 % (18.0-39.1); MEAN CORPUSCULAR HEMOGLOBIN 28.7 pg (28-32); MEAN CORPUSCULAR HGB CONC 32.9 g/dL (31-35); MEAN CORPUSCULAR VOLUME 87.2 fL (81-99); MONOCYTES # (AUTO) 0.9 (0.2-0.8); MONOCYTES % 9.7 % (4.4-11.3); NEUTROPHILS # (AUTO) 7.6 (2.1-6.9); NEUTROPHILS % 79.2 % (38.7-80.0); PLATELET COUNT 133 x10e3/uL (140-360); RED BLOOD COUNT 3.97 x10e6/uL (4.3-5.7); RED CELL DISTRIBUTION WIDTH 16.6 % (11.7-14.4)
[2017-12-30 06:10] LABS: ALBUMIN/GLOBULIN RATIO 0.5 (0.8-2.0); ANION GAP 14.3 mmol/L (8-16); CREATININE, SERUM 2.01 mg/dL (0.72-1.25); MAGNESIUM 1.2 MG/DL (1.3-2.1); POTASSIUM 3.3 mmol/L (3.5-5.1)
--- NOTE | 2017-12-30 06:18 | Diagnostic Imaging Report ---
EXAMINATION: CHEST SINGLE (PORTABLE) INDICATION: CHF. COMPARISON: 12/29/2017 FINDINGS: TUBES and LINES: Endotracheal, NG tube and right IJ central line catheter are noted in good position. LUNGS: Lungs are not well inflated. Interval increase in interlobular septal thickening. There is mild prominence of the central pulmonary vasculature, consistent with pulmonary venous congestion. PLEURA: Worsening small left pleural effusion. HEART AND MEDIASTINUM: Cardiac size is moderately enlarged. There are atherosclerotic calcifications within the aorta. Patient is status post CABG procedure. BONES AND SOFT TISSUES: No acute osseous lesion. Soft tissues are unremarkable. UPPER ABDOMEN: No free air under the diaphragm. IMPRESSION: Findings are compatible with worsening cardiogenic pulmonary edema and pleural effusions. Signed by: Dr. Barry Salas M.D. on 12/30/2017 6:14 AM
[2017-12-30] MEDS ORDERED: POTASSIUM CHLORIDE 20MEQ/15ML UDC NG NR (07:45)
[2017-12-30] MEDS: ACETAMINOPHEN 325 MG/10 ML UDC NG PRN ×2 (08:13→16:12)
[2017-12-30] MEDS: ASPIRIN 81 MG CHEW TAB PO SCH (08:50)
[2017-12-30] MEDS: MIDODRINE 2.5 MG TAB NG SCH ×3 (08:50→20:08)
[2017-12-30] MEDS: SODIUM BICARBONATE 650 MG TAB NG SCH ×2 (08:50→16:16)
[2017-12-30] MEDS: PANTOPRAZOLE 40 MG 10ML VIAL IV SCH (09:14)
[2017-12-30] MEDS: CLOPIDOGREL BISULFATE 75 MG TAB PO SCH (09:29)
[2017-12-30] MEDS: HEPARIN 25,000U/0.45% NS 250ML 250 ML IV SCH (09:35)
[2017-12-30] MEDS ORDERED: FUROSEMIDE INJ 10 MG/ML 4 ML VIAL IV NR (09:45)
[2017-12-30] MEDS: AMIODARONE HCL 900 MG in DEXTROSE 5% 500ML 500 ML IV SCH (12:00)
[2017-12-30] MEDS ORDERED: MAGNESIUM SULFATE 2GM/50ML 50 ML IV ONE (13:00)
[2017-12-30] MEDS: FUROSEMIDE INJ 10 MG/ML 4 ML VIAL IV SCH ×2 (13:55→20:08)
--- NOTE | 2017-12-30 14:00 | Progress Note ---
DATE: December 30, 2017 PULMONARY MEDICINE PROGRESS NOTE SUBJECTIVE: Mr. Zavala was seen and examined at bedside. He remains on ventilator. He is on Precedex 0.2 mcg per kg per minute for comfort. Patient continues with Levophed needs. He was on 10 of Levophed yesterday and today is brought down to 4 but is vacillating back and forth. Amiodarone 0.5 mg per minute. Feeds at 50 mL per hour. Heparin IV ongoing. REVIEW OF SYSTEMS: Cannot get as he is intubated. OBJECTIVE VITAL SIGNS: Afebrile. Vital signs noted per electronic record. GENERALLY: No acute distress, alert and calm. HEENT: Normocephalic, atraumatic. NECK: Supple. Throat midline. LUNGS: Bilateral air entry, a few rhonchi. CARDIOVASCULAR: S1 and S2. No murmurs, rubs or gallops. ABDOMINAL: Soft, nontender. EXTREMITIES: No clubbing, no cyanosis. There is no edema. INTEGUMENT: No rash. No purpura. LABS: Potassium 3.2, BUN 49, creatinine 2.0. White count 10, hematocrit 35, platelets 133. IMPRESSION AND PLAN 1. Acute respiratory failure, intubated. 2. Pneumonia. 3. Superimposed fluid overload component. 4. Possible urinary tract infection, urinalysis with 6-10 white blood cells per field. 5. Zuthc-xn-mbkivlp kidney injury. 6. Encephalopathy with delirium, now on sedation. 7. Abnormal abdominal computed tomography, possible pancreatic inflammation. 8. Septic shock. 9. Atrial fibrillation with rapid rate as well. 10. Treat for acute coronary syndrome and gtw-YM-onveovdyb myocardial infarction. Continue ventilator status at this time. The blood pressure is too fragile; so, we plan to keep weaning off Levophed for now. Continue daily wean. If the blood pressure remains stable, will consider extubation. He failed extubation trial yesterday. Continue Precedex for comfort. Tube feeds ongoing. Normal saline can be either decreased or stopped as the fluid loading is not helping the blood pressure substantially. Continue some Lasix but no high need to get the patient very negative given the pressors that are ongoing. Will follow along closely. Continue GI and DVT prophylaxis. Antibiotics currently include Merrem; and, of note, no resistant organisms have been found so far as all blood cultures are unremarkable. Job#: [id number] EV
--- NOTE | 2017-12-30 14:21 | Progress Note ---
DATE: December 30, 2017 SUBJECTIVE: Patient is still intubated. He has an FiO2 of 40%, PEEP of 5. Chest x-ray consistent with pulmonary edema. He did have a fever early this morning confirmed. He is still on 5 mcg of Levophed. He is on Precedex as well and amiodarone. His current blood pressure is 134/70. OBJECTIVE VITAL SIGNS: Temperature is T-max 101.1, blood pressure 134/70. He is 96% on a mechanical ventilator FiO2 of 40%, PEEP of 5. LAB FINDINGS: Show white count of 9.6, hemoglobin 11.4, hematocrit 35, platelets of 133. Chemistry--sodium 139, potassium 3.3, chloride 108, bicarb 20, anion gap of 14, BUN is 49, creatinine is 2. His glucose is 100. His calcium is 8. His magnesium is 2.1, total bilirubin is 1.8. LFTs are improving. AST 35, ALT 61. Albumin is 2. Lipase is 55. MICROBIOLOGY: Blood, urine, and sputum cultures all negative. IMAGING STUDIES: Chest x-ray this morning shows evidence of pulmonary edema. PHYSICAL EXAMINATION GENERAL: He is intubated and sedated. HEENT: Head normocephalic, atraumatic. Eyes, pupils equally round and reactive to light bilaterally. Extraocular movements intact bilaterally. No evidence of any erythema, exudates in the posterior oropharynx. Has poor dentition. He currently has ET tube. NECK: Supple. Good range of motion throughout. PULMONARY: Decreased breath sounds bilaterally. He has an ET tube, mechanical ventilator, rales, no rhonchi, fine crackles. CARDIOVASCULAR: Positive S1, S2. No murmurs, rubs, or gallops appreciated. ABDOMEN: Soft, nondistended, nontender to palpation. Bowel sounds present. MUSCULOSKELETAL: Unable to assess, intubated and sedated. NEUROLOGICAL: Currently sedated. PSYCHIATRIC: Currently sedated. EXTREMITIES: He has 1+ pedal edema bilateral lower extremities. ASSESSMENT AND PLAN 1. Septic shock with multiorgan failure--his LFTs are normal, his lipase levels are normal. We are going to continue with IV antibiotics with Merrem for now. He did develop a fever this morning in which we will get repeat blood cultures and repeat labs in the morning. His current blood, urine and sputum cultures were found to be negative. 2. Acute hypoxic respiratory failure--he continues to be on a mechanical ventilator on Precedex, FiO2 of 40%, PEEP of 5. Pulmonary is following. The chest x-ray was consistent with pulmonary edema which we will stop the IV fluids and put him on IV Lasix. 3. Atrial fibrillation with rapid ventricular response--rate is controlled. He continues to be on amiodarone. Cardiology is following. He is also on a heparin drip. 4. Anion gap metabolic acidosis secondary to acute kidney injury. His creatinine is improving tremendously. His creatinine is 2 now. Electrolytes are stable. We will replace magnesium and potassium. Blood pressure is stable as well. Get a.m. labs. 5. Fqn-AB-nubqrlm elevation myocardial infarction--patient will continue with cardioprotective meds including heparin drip and will need a left heart cath prior to discharge. 6. Elevated transaminases/acute pancreatitis--all improved. 7. Metabolic encephalopathy now intubated and sedated. 8. Alzheimer's dementia with questionable history of Parkinson's disease. 9. Prophylaxis heparin drip. 10. Fluid, electrolytes, nutrients--currently on tube feeds at goal. 11. Disposition--ICU, cardiology, pulmonary critical care have been consulting and following. I spent more than 35 minutes of critical care time on this case. I discussed this overall plan of care with the son by phone and updated him about the overall clinical picture. He verbalizes understanding. Job#: [id number] LISSY
[2017-12-30] MEDS: DOXYCYCLINE 100MG/NS 100ML 100 ML IV SCH (14:59)
--- NOTE | 2017-12-30 15:37 | Progress Note ---
DATE: December 30, 2017 CARDIOLOGY PROGRESS NOTE SUBJECTIVE: No major events overnight. Remains intubated and sedated. REVIEW OF SYSTEMS: A 10-point review of systems cannot be performed as the patient is intubated and sedated. OBJECTIVE VITAL SIGNS: Temperature 100.6, pulse 71, respiratory rate 25, satting 97% on 40% FIO2 mechanical ventilation. GENERAL: Elderly white man intubated and sedated. CARDIOVASCULAR: PMI nondisplaced. Irregular rhythm. Normal S1 and S2. Difficult auscultation. A 2/6 holosystolic murmur at the apex. Normal carotid pulses. Palpable radial pulses. Weak lower extremity pulses. One plus lower extremity edema bilaterally. RESPIRATORY: Intubated and mechanical ventilation sounds. Decreased left lower lobe breath sounds and crackles on the right. ABDOMEN: Soft. No masses. NEURO/PSYCH: Intubated and sedated. MEDICATIONS: Reviewed. LABORATORY DATA: Reviewed. IMAGING DATA: Reviewed. Shows worsening pulmonary edema. Telemetry data reviewed. Shows atrial fibrillation, now rate controlled. ECG reviewed and shows atrial fibrillation with ST-T changes suggestive of inferior ischemia. Echocardiogram reviewed. EF of 25% to 30%. Inferior and inferoseptal hypokinesis. Moderate mitral regurgitation. ASSESSMENT 1. Hno-KU-jlkdbjr elevation myocardial infarction. 2. Cardiogenic shock. 3. Septic shock. 4. Acute systolic and diastolic heart failure. 5. Atrial fibrillation with rapid ventricular response. 6. Hypertension. 7. Alzheimer dementia. 8. Acute kidney injury. PLAN: Continue aspirin, Plavix and heparin for his ACS and atrial fibrillation. Now, he is rate controlled. Continue amiodarone. Will transition to oral amiodarone starting tomorrow. No plan for any invasive cardiac procedures given the patient is critically ill and possibly septic. Will risk stratify further once he recovers from his acute illness and respiratory failure after discussion with family regarding risks and benefits of invasive therapy. Continue diuresis with furosemide 40 mg IV twice a day. Thank you for this consult. Will continue to follow. Job#: [id number] NM
[2017-12-31] VITALS (91 sets, daily range): BP systolic 82–148; BP diastolic 35–89
[2017-12-31] MEDS: MORPHINE SULFATE 2 MG/ML SYR IV PRN ×3 (00:02→09:33)
[2017-12-31] MEDS: DOXYCYCLINE 100MG/NS 100ML 100 ML IV SCH ×2 (01:18→14:49)
[2017-12-31] MEDS: DEXMEDETOMIDINE HCL 200 MCG in SODIUM CHLORIDE 0.9% 50ML 48 ML IV PRN ×6 (01:36→22:16)
[2017-12-31 04:57] LABS: BASOPHILS % 0.4 % (0.0-1.0); EOSINOPHILS # (AUTO) 0.1 (0.0-0.4); EOSINOPHILS % 0.6 % (0.0-6.0); HEMOGLOBIN 11.4 g/dL (14.0-18.0); LYMPHOCYTES # (AUTO) 0.9 (1.0-3.2); LYMPHOCYTES % 8.2 % (18.0-39.1); MEAN CORPUSCULAR HEMOGLOBIN 28.2 pg (28-32); MEAN CORPUSCULAR HGB CONC 32.6 g/dL (31-35); MEAN CORPUSCULAR VOLUME 86.6 fL (81-99); MONOCYTES # (AUTO) 1.1 (0.2-0.8); MONOCYTES % 9.8 % (4.4-11.3); NEUTROPHILS # (AUTO) 8.7 (2.1-6.9); NEUTROPHILS % 79.4 % (38.7-80.0); PLATELET COUNT 157 x10e3/uL (140-360); RED BLOOD COUNT 4.04 x10e6/uL (4.3-5.7); RED CELL DISTRIBUTION WIDTH 16.6 % (11.7-14.4)
[2017-12-31 05:34] LABS: ALBUMIN/GLOBULIN RATIO 0.5 (0.8-2.0); ANION GAP 16.9 mmol/L (8-16); CALCIUM 8.4 mg/dL (8.4-10.2); CREATININE, SERUM 2.24 mg/dL (0.72-1.25); MAGNESIUM 1.5 MG/DL (1.3-2.1)
[2017-12-31 05:38] LABS: POTASSIUM 2.9 mmol/L (3.5-5.1)
[2017-12-31 05:50] LABS: INR 1.25; PROTHROMBIN TIME 14.8 seconds (11.9-14.5)
[2017-12-31 05:51] LABS: PARTIAL THROMBOPLASTIN TIME 58.4 seconds (23.8-35.5)
[2017-12-31] MEDS: MEROPENEM 500 MG VIAL IV SCH ×3 (06:11→17:12)
--- NOTE | 2017-12-31 06:26 | Diagnostic Imaging Report ---
EXAMINATION: CHEST SINGLE (PORTABLE) INDICATION: CHF. COMPARISON: 12/30/2017 FINDINGS: TUBES and LINES: Endotracheal, NG tube and right IJ central line catheters are stable LUNGS: Lungs are not well inflated. There are bibasilar atelectasis. There is improving and perihilar interstitial opacities, consistent with interstitial edema. PLEURA: Small left pleural effusion. HEART AND MEDIASTINUM: Cardiac size is moderately enlarged. There are atherosclerotic calcifications within the aorta. BONES AND SOFT TISSUES: No acute osseous lesion. Soft tissues are unremarkable. UPPER ABDOMEN: No free air under the diaphragm. IMPRESSION: Constellation of findings are compatible with improvement in peripheral interstitial and alveolar edema with small left pleural effusion Signed by: Dr. Barry Salas M.D. on 12/31/2017 6:23 AM
[2017-12-31 07:14] LABS: CREATINE KINASE MB 0.7 ng/mL (0-5.0)
[2017-12-31] MEDS: HEPARIN 25,000U/0.45% NS 250ML 250 ML IV SCH (07:58)
[2017-12-31] MEDS ORDERED: POTASSIUM CHLORIDE 20MEQ/100ML 200 ML IV ONE ×3 (08:00→17:00)
[2017-12-31] MEDS: PANTOPRAZOLE 40 MG 10ML VIAL IV SCH (08:18)
[2017-12-31] MEDS: AMIODARONE HCL 200 MG TAB PO SCH (08:18)
[2017-12-31] MEDS: MIDODRINE 2.5 MG TAB NG SCH ×3 (08:18→21:19)
[2017-12-31] MEDS: ASPIRIN 81 MG CHEW TAB PO SCH (08:18)
[2017-12-31] MEDS: CLOPIDOGREL BISULFATE 75 MG TAB PO SCH (08:18)
[2017-12-31] MEDS: SODIUM BICARBONATE 650 MG TAB NG SCH ×2 (08:18→16:59)
[2017-12-31] MEDS: FUROSEMIDE INJ 10 MG/ML 4 ML VIAL IV SCH (08:18)
--- NOTE | 2017-12-31 08:51 | Progress Note ---
DATE: December 31, 2017 CARDIOLOGY PROGRESS NOTE SUBJECTIVE: No major events. Off pressors at this time. Sedation is turned off. Plan for extubation today. REVIEW OF SYSTEMS: Could not be performed as the patient is intubated. OBJECTIVE VITAL SIGNS: Temperature is 98.6, pulse 62, respiratory rate 24, blood pressure 121/65, satting 100% on mechanical ventilator with 40% FiO2. GENERAL: Elderly man intubated, no acute distress. CARDIOVASCULAR: Regular rate and rhythm. No murmurs, rubs or gallops. Palpable carotid pulses. Palpable radial pulses. RESPIRATORY: No acute distress. Mild bibasilar crackles. Mechanical ventilation sounds. ABDOMEN: Soft. No masses. NEURO AND PSYCH: The patient is intubated. Responds to tactile and verbal stimuli. IMAGING DATA: Reviewed. Shows improving pulmonary edema. LABORATORY DATA: Reviewed. Shows improving white count. Potassium extremely low at 2.9. TELEMETRY DATA: Reviewed. ASSESSMENT 1. Cys-SA-yqpwupt elevation myocardial infarction. 2. Cardiogenic shock. 3. Septic shock. 4. Acute systolic and diastolic heart failure. 5. Atrial fibrillation with rapid ventricular response. 6. Hypertension. 7. Alzheimer dementia. 8. Acute kidney injury. 9. Respiratory failure requiring mechanical ventilation. PLAN: Continue aspirin, Plavix and heparin for ACS and atrial fibrillation. He has completed his IV amiodarone. Heart rates are now in the 60s. Start amiodarone 200 mg p.o. daily at this point. Plan is for extubation today. Once he is extubated and more stable, will discuss with the patient and the family regarding further risk stratification from a cardiovascular standpoint. No invasive procedure is planned at this time. Continue diuresis with furosemide 40 mg IV twice a day. Thank you for this consult. Will continue to follow. Job#: [id number]
[2017-12-31] MEDS: FENTANYL CITRATE INJ 2,000 MCG in SODIUM CHLORIDE 0.9% 250ML 210 ML IV PRN (10:48)
--- NOTE | 2017-12-31 11:14 | Progress Note ---
DATE: December 31, 2017 SUBJECTIVE: The patient is still intubated. We tried a trial for extubation, but the patient gets very tachypneic and not cooperative in which he is now back on sedation with Precedex, and will start on fentanyl drip per pulmonary critical care. Has good urine output. No overnight events. OBJECTIVE VITAL SIGNS: Temperature is 98.6, pulse 62, blood pressure 121/60. FIO2 of 40% and PEEP of 5. Still on mechanical ventilator. GENERAL: Still intubated and sedated. HEENT: Head is normocephalic and atraumatic. Eyes: Pupils equal, round and reactive to light bilaterally. Extraocular movements intact bilaterally. NECK: Supple. Good range of motion. Throat with no evidence of any erythema or exudates in the posterior pharynx. Has poor dentition. PULMONARY: Still intubated and sedated. CARDIOVASCULAR: Positive S1 and S2. No murmurs, rubs or gallops appreciated. He does have an irregularly irregular rhythm. ABDOMEN: Soft, nondistended and nontender to palpation. Bowel sounds present. MUSCULOSKELETAL: Intubated and sedated. NEUROLOGICAL: Intubated and sedated. PSYCHIATRIC: Intubated and sedated. EXTREMITIES: No edema. LAB FINDINGS: Show white count of 10.9, hemoglobin 11.4, hematocrit 35, and platelets of 157,000. Chemistry: Sodium 145, potassium 2.9, chloride 108, bicarb 23, anion gap of 16, BUN of 58, creatinine is 2.2. Calcium is 8.4. Albumin is 2. Troponin 2.5. Lipase 55. MICROBIOLOGY: Urine culture is negative. Blood culture is negative. Sputum culture is negative. Repeat blood cultures have been performed. IMAGING STUDIES: Chest x-ray shows improved peripheral interstitial and alveolar edema with small left pleural effusion. ASSESSMENT AND PLAN 1. Septic shock with multiorgan failure: Normal liver function tests and lipase level. Continue with intravenous antibiotics for now. Repeat blood cultures were performed and shows no growth. The patient has been afebrile for approximately 24 hours now. Urine cultures and sputum cultures are negative. 2. Acute hypoxic respiratory failure: The patient still on mechanical ventilator and requiring Precedex now, fentanyl drip, FIO2 of 40%, PEEP of 5. Pulmonary is following. Chest x-ray shows improved pulmonary edema after giving intravenous Lasix. The patient gets very tachypneic, and so is very difficult for us to extubate him. 3. Atrial fibrillation with rapid ventricular response: Rate is well controlled now on oral amiodarone and still on heparin drip. 4. Anion gap metabolic acidosis secondary to acute kidney injury: Creatinine is likely at its baseline. Currently, at 2.2. Will continue to monitor. 5. Kap-PH-gbmyzov elevation myocardial infarction: Continue cardioprotective meds. Heparin drip. Cardiology is following. Will need a heart cath prior to discharge. 6. Elevated transaminases and acute pancreatitis: All resolved. 7. Metabolic encephalopathy: Now intubated and sedated. 8. Alzheimer dementia and questionable Parkinson disease. 9. Prophylaxis: Heparin drip. 10. Fluid, electrolytes and nutrients: Tube feeds at goal. 11. Hypokalemia, replaced. 12. Disposition: Intensive care unit stay. Cardiology and pulmonary critical care is following. I updated the family by phone. Still no change in his overall state. His labs have improved tremendously though it is very difficult for us to extubate him at this time. Will continue with the same plan of care. I discussed the overall plan of care with the nursing staff. Job#: [id number] CYRIL
--- NOTE | 2017-12-31 13:10 | Progress Note ---
DATE: December 31, 2017 PULMONARY MEDICINE PROGRESS NOTE SUBJECTIVE: Mr. Zavala was seen and examined at bedside. Sixty mL of feeds per hour and 50 mL of water are set in the pump. Intubated on ventilator support. Patient with respiratory rate of 49 during the wean today. Patient not extubatable. Back on Precedex 0.7 mcg per minute and fentanyl 50 mcg per minute. REVIEW OF SYSTEMS: Cannot get as he is intubated. OBJECTIVE VITALS: Afebrile. Vital signs noted per electronic record. GENERAL: No acute distress, alert and calm. HEENT: Normocephalic, atraumatic. NECK: Supple. Throat midline. LUNGS: Bilateral air entry, a few rhonchi, a few crackles. CARDIOVASCULAR: S1 and S2. No murmurs, rubs or gallops. ABDOMEN: Soft, nontender. EXTREMITIES: No clubbing, no cyanosis. There is no edema. INTEGUMENT: No rash. No purpura. LABS: Potassium 2.9, 58 BUN, 2.3 creatinine, 11 white count, 35 hematocrit, 157 platelets. IMPRESSION AND PLAN 1. Acute respiratory failure, intubated. 2. Septic shock with multiorgan failure, now off pressors. 3. Treat for pneumonia. 4. Treat for superimposed fluid overload. 5. Acute/chronic kidney failure. 6. Atrial fibrillation with rapid ventricular rate. 7. Urinary tract infection with 6-10 white blood cells per high-power field. 8. Treat for acute coronary syndrome and myocardial infarction. 9. Encephalopathy/delirium. At this time, will continue current treatment. Continue feeds. No extubation today. Continue daily weaning attempts. Continue to keep the patient slightly dry balance as tolerated. Will continue to follow closely. Job#: [id number]
[2017-12-31] MEDS ORDERED: FUROSEMIDE INJ 10 MG/ML 4 ML VIAL IV ONE (17:00)
[2017-12-31] MEDS ORDERED: POTASSIUM CHLORIDE 20MEQ/15ML UDC NG ONE (17:00)
[2018-01-01] VITALS (69 sets, daily range): BP systolic 111–144; BP diastolic 49–85
[2018-01-01] MEDS: MEROPENEM 500 MG VIAL IV SCH ×4 (00:04→17:46)
[2018-01-01] MEDS: ACETAMINOPHEN 325 MG/10 ML UDC NG PRN ×2 (00:22→17:46)
[2018-01-01] MEDS: DEXMEDETOMIDINE HCL 200 MCG in SODIUM CHLORIDE 0.9% 50ML 48 ML IV PRN ×4 (01:07→21:00)
[2018-01-01] MEDS: DOXYCYCLINE 100MG/NS 100ML 100 ML IV SCH ×2 (01:30→12:39)
[2018-01-01 04:49] LABS: BASOPHILS # (AUTO) 0.1 (0.0-0.1); BASOPHILS % 0.4 % (0.0-1.0); EOSINOPHILS # (AUTO) 0.2 (0.0-0.4); EOSINOPHILS % 1.4 % (0.0-6.0); HEMATOCRIT 35.4 % (38.2-49.6); HEMOGLOBIN 11.1 g/dL (14.0-18.0); LYMPHOCYTES # (AUTO) 1.1 (1.0-3.2); LYMPHOCYTES % 9.1 % (18.0-39.1); MEAN CORPUSCULAR HEMOGLOBIN 27.6 pg (28-32); MEAN CORPUSCULAR HGB CONC 31.4 g/dL (31-35); MEAN CORPUSCULAR VOLUME 88.1 fL (81-99); MONOCYTES # (AUTO) 1.4 (0.2-0.8); MONOCYTES % 11.6 % (4.4-11.3); NEUTROPHILS # (AUTO) 8.8 (2.1-6.9); NEUTROPHILS % 75.6 % (38.7-80.0); PLATELET COUNT 172 x10e3/uL (140-360); RED BLOOD COUNT 4.02 x10e6/uL (4.3-5.7); RED CELL DISTRIBUTION WIDTH 16.6 % (11.7-14.4)
[2018-01-01 05:11] LABS: ALBUMIN 1.9 g/dL (3.5-5.0); ALBUMIN/GLOBULIN RATIO 0.4 (0.8-2.0); ANION GAP 15.5 mmol/L (8-16); CALCIUM 8.6 mg/dL (8.4-10.2); CREATININE, SERUM 2.31 mg/dL (0.72-1.25); POTASSIUM 3.5 mmol/L (3.5-5.1)
--- NOTE | 2018-01-01 06:49 | Diagnostic Imaging Report ---
EXAMINATION: CHEST SINGLE (PORTABLE) INDICATION: Pulmonary edema COMPARISON: 12/31/2017 FINDINGS: TUBES and LINES: Endotracheal, nasogastric tube, right IJ central line catheter are stable LUNGS: Lungs are not well inflated. There are bibasilar atelectasis. There is perihilar interstital opacities, consistent with interstitial edema. PLEURA: Small left pleural effusion. HEART AND MEDIASTINUM: Cardiac size is moderately enlarged. There are atherosclerotic calcifications within the aorta. BONES AND SOFT TISSUES: No acute osseous lesion. Soft tissues are unremarkable. UPPER ABDOMEN: No free air under the diaphragm. IMPRESSION: Worsening interstitial edema, most likely cardiogenic Signed by: Dr. Barry Salas M.D. on 01/01/2018 6:45 AM
[2018-01-01] MEDS: HEPARIN 25,000U/0.45% NS 250ML 250 ML IV SCH (08:49)
[2018-01-01] MEDS: PANTOPRAZOLE 40 MG 10ML VIAL IV SCH (09:07)
[2018-01-01] MEDS: AMIODARONE HCL 200 MG TAB PO SCH (09:08)
[2018-01-01] MEDS: CLOPIDOGREL BISULFATE 75 MG TAB PO SCH (09:08)
[2018-01-01] MEDS: MIDODRINE 2.5 MG TAB NG SCH (09:08)
[2018-01-01] MEDS: ASPIRIN 81 MG CHEW TAB PO SCH (09:08)
[2018-01-01] MEDS: SODIUM BICARBONATE 650 MG TAB NG SCH ×2 (09:08→17:46)
--- NOTE | 2018-01-01 13:18 | Progress Note ---
DATE: January 01, 2018 PULMONARY MEDICINE PROGRESS NOTE SUBJECTIVE: Mr. Zavala was seen and examined at bedside. He continues on ventilator. He remains on Precedex 0.3 mcg/kg per minute, fentanyl 25 mcg per minute. Tube feeds were tolerated. He has good urine output. Under weaning trial today and he continue to do good so far. REVIEW OF SYSTEMS: No bleeding. No rash. OBJECTIVE VITAL SIGNS: Afebrile, vital signs noted per electronic record. GENERAL: No acute distress, alert and calm. HEENT: Normocephalic, atraumatic. NECK: Supple. Throat midline. LUNGS: Bilateral air entry, rare rhonchi. CARDIOVASCULAR: S1, S2. No murmurs, rubs, or gallops. ABDOMEN: Soft, nontender. EXTREMITIES: No clubbing, no cyanosis. There is only trac edema. INTEGUMENT: No rash. No purpura. LABS: Potassium 3.5, 71 BUN, 2.3 creatinine. White count 12 and 35 hematocrit. IMPRESSION AND PLAN 1. Acute respiratory failure, intubated. 2. Pneumonia. 3. Fluid overload, superimposed. 4. Septic shock. 5. Possible urinary tract infection. 6. Encephalopathy, otherwise specified. 7. Atrial fibrillation with rapid ventricular rate. Diuretics were given and there were some good diuretic effect. Follow up closely. We will consider given more diuretics. Continue weaning trial. We will awaken him and if he continues to do well, will extubate. Tube feeds on hold temporarily for the wean. Continue rate control with antiarrhythmics. Antibiotics will be continued as well. Greater than 30 minutes in direct care with multiple evaluations and direct supervision of wean, given previous difficulties. Job#: [id number] MARKEL
[2018-01-01] MEDS: FUROSEMIDE INJ 10 MG/ML 4 ML VIAL IV SCH ×2 (14:12→21:10)
--- NOTE | 2018-01-01 14:31 | Progress Note ---
DATE: January 01, 2018 SUBJECTIVE: The patient is still intubated. They tried doing a weaning trial today, but he got very tachypneic and unable to be extubated. The patient has had good urine output with IV diuretics. OBJECTIVE VITAL SIGNS: Temperature is 99.6, pulse 80, respiratory rate 18, blood pressure 125/66. Pulse ox is 96%. He is on 40 FiO2 and PEEP of 5. His urine output was found to be 2175. LAB FINDINGS: White count 11.5, hemoglobin 11, hematocrit 35, platelets 172. Coagulation: PTT 51.8. Chemistry: Sodium 142, potassium 3.5, chloride 106, bicarb 24, anion gap 15, BUN 71, creatinine 2.3, glucose 143, calcium 8.6, albumin 1.9. MICROBIOLOGY: Repeat blood cultures negative. Sputum culture negative. Initial blood cultures were negative. Urine cultures are negative. IMAGING STUDIES: Chest x-ray performed this morning showed worsening interstitial edema and most likely cardiogenic. GENERAL: He is intubated and sedated. HEENT: Head is normocephalic and atraumatic. Eyes: Pupils are equal, round and reactive to light bilaterally. NECK: Supple. Good range of motion. THROAT: Has an ET tube. PULMONARY: Intubated and sedated. CARDIOVASCULAR: Positive S1 and S2. No murmurs, rubs or gallops appreciated. ABDOMEN: Soft, nondistended and nontender to palpation. Bowel sounds present. MUSCULOSKELETAL: Unable to assess. Intubated and sedated. NEUROLOGICAL: Unable to assess. Intubated and sedated. SKIN: Intact. Warm to touch. Good cap refill. PSYCHIATRIC: He is intubated and sedated. EXTREMITIES: He does have trace to 1+ pedal edema bilaterally and throughout the body. IMPRESSION 1. Septic shock with multiorgan failure: His LFTs and lipase levels are normal. We are going to continue with IV antibiotics for now. Blood cultures have been negative. He has been afebrile. 2. Acute hypoxic respiratory failure: He is still intubated on the mechanical ventilator on Precedex drip as well as fentanyl drip. The patient is very tachypneic upon weaning trials, which he will be intubated still. We will retry tomorrow with pulmonary. We are going to continue with IV diuretics. 3. Atrial fibrillation with rapid ventricular response: His rate is very controlled. He is on amiodarone. He is on heparin drip. 4. Anion gap metabolic acidosis: His baseline creatinine seems to be around 2, slightly elevated after giving diuretics. Will continue to monitor. 5. Fnj-KY-qxffppo elevation myocardial infarction: Continue cardioprotective meds. Cardiology following. Heparin drip. 6. Elevated transaminases and acute pancreatitis: Resolved. 7. Metabolic encephalopathy: Currently intubated and sedated. 8. Alzheimer dementia and questionable Parkinson disease. 9. Prophylaxis: Heparin drip. 10. Fluid, electrolytes and nutrients: Tube feeds at goal. 11. Disposition: ICU. Pulmonary and cardiology are following. Job#: [id number]
[2018-01-01] MEDS: POTASSIUM CHLORIDE 20MEQ/15ML UDC NG SCH ×2 (14:45→21:10)
--- NOTE | 2018-01-01 22:15 | Progress Note ---
DATE: January 01, 2018 CARDIOLOGY PROGRESS NOTE SUBJECTIVE: No major events overnight. Remains intubated and sedated. Off all pressors. REVIEW OF SYSTEMS: Could not be performed as patient is intubated and sedated. OBJECTIVE: VITAL SIGNS: Temperature 99.3, heart rate 66, respiratory rate 18, blood pressure 122/56, satting 100% on mechanical ventilation. GENERAL: Elderly white man, intubated and sedated, in no acute distress. CARDIOVASCULAR: Regular rate and rhythm. S3 gallop. No murmurs. Palpable carotid pulses. Palpable radial pulses. LUNGS: No respiratory distress. Crackles at the bases. Diminished breath sounds, left lower lobe. ABDOMEN: Soft, nondistended. EXTREMITIES: 1+ edema. NEURO AND PSYCH: Patient is intubated and sedated. LABORATORY DATA: Reviewed. Hemoglobin stable at 11.1. BUN rising, now 71. Creatinine starting to rise, now 2.3. Troponin has been down trending now for several days. IMAGING DATA: Reviewed. Chest x-ray showed pulmonary edema and cardiomegaly. Sternal wires. TELEMETRY DATA: Reviewed, shows sinus rhythm. ASSESSMENT: 1. Non-ST elevation myocardial infarction. 2. Cardiogenic shock. 3. Septic shock. 4. Acute systolic and diastolic heart failure. 5. Hypoxemic respiratory failure, requiring mechanical ventilation. 6. Pulmonary edema. 7. Atrial fibrillation with rapid ventricular response. 8. History of coronary artery disease, status post coronary artery bypass graft. 9. Alzheimer's dementia. 10. Acute kidney injury on chronic kidney disease. PLAN: Continue aspirin, Plavix, and heparin for non-STEMI and atrial fibrillation. IV amiodarone completed. Continue oral amiodarone. Rates are well controlled. Increase IV Lasix to 40 mg IV q.8h. BUN and creatinine are starting to rise; however, significant pulmonary edema on x-ray still. Continue treatment for infection per primary team. No invasive procedure is planned from cardiology standpoint while patient remains critically ill. Continue diuresis as much as kidneys will tolerate. Thank you for this consult. Will continue to follow. Job#: [id number]
[2018-01-02] VITALS (62 sets, daily range): BP systolic 94–136; BP diastolic 50–73
[2018-01-02] MEDS: DOXYCYCLINE 100MG/NS 100ML 100 ML IV SCH ×2 (00:32→15:32)
[2018-01-02] MEDS: MEROPENEM 500 MG VIAL IV SCH ×4 (00:56→17:33)
[2018-01-02] MEDS: DEXMEDETOMIDINE HCL 200 MCG in SODIUM CHLORIDE 0.9% 50ML 48 ML IV PRN ×2 (00:57→21:00)
[2018-01-02] MEDS: FENTANYL CITRATE INJ 2,000 MCG in SODIUM CHLORIDE 0.9% 250ML 210 ML IV PRN ×2 (00:57→23:00)
[2018-01-02] MEDS: ACETAMINOPHEN 325 MG/10 ML UDC NG PRN (01:15)
[2018-01-02] MEDS: FUROSEMIDE INJ 10 MG/ML 4 ML VIAL IV SCH (05:16)
[2018-01-02] MEDS: POTASSIUM CHLORIDE 20MEQ/15ML UDC NG SCH (05:16)
[2018-01-02 05:21] LABS: BASOPHILS # (AUTO) 0.1 (0.0-0.1); BASOPHILS % 0.4 % (0.0-1.0); EOSINOPHILS # (AUTO) 0.2 (0.0-0.4); EOSINOPHILS % 1.8 % (0.0-6.0); HEMATOCRIT 32.3 % (38.2-49.6); HEMOGLOBIN 10.4 g/dL (14.0-18.0); MEAN CORPUSCULAR HEMOGLOBIN 28.7 pg (28-32); MEAN CORPUSCULAR HGB CONC 32.2 g/dL (31-35); MONOCYTES # (AUTO) 1.1 (0.2-0.8); MONOCYTES % 8.9 % (4.4-11.3); NEUTROPHILS # (AUTO) 10.2 (2.1-6.9); NEUTROPHILS % 79.7 % (38.7-80.0); PLATELET COUNT 187 x10e3/uL (140-360); RED BLOOD COUNT 3.63 x10e6/uL (4.3-5.7); RED CELL DISTRIBUTION WIDTH 16.7 % (11.7-14.4)
[2018-01-02 05:43] LABS: ANION GAP 17.7 mmol/L (8-16); CALCIUM 8.8 mg/dL (8.4-10.2); CREATININE, SERUM 2.48 mg/dL (0.72-1.25); POTASSIUM 3.7 mmol/L (3.5-5.1)
--- NOTE | 2018-01-02 05:58 | Diagnostic Imaging Report ---
EXAMINATION: CHEST SINGLE (PORTABLE) INDICATION: Shortness of breath COMPARISON: 01/01/2018 FINDINGS: TUBES and LINES: Endotracheal, nasogastric tubes and right IJ central line catheter are in good position LUNGS: Lungs are not well inflated. There are bibasilar atelectasis. There is perihilar interstitial opacities, consistent with interstitial edema. PLEURA: Small left pleural effusion. HEART AND MEDIASTINUM: Cardiac size is moderately enlarged. BONES AND SOFT TISSUES: No acute osseous lesion. Soft tissues are unremarkable. UPPER ABDOMEN: No free air under the diaphragm. IMPRESSION: 1. Findings are stable and compatible with cardiogenic pulmonary edema. 2. Small left pleural effusion Signed by: Dr. Barry Salas M.D. on 01/02/2018 5:54 AM
[2018-01-02] MEDS: HEPARIN 25,000U/0.45% NS 250ML 250 ML IV SCH (07:52)
[2018-01-02] MEDS ORDERED: SCOPOLAMINE 1.5 MG PATCH TOP ONE (09:45)
[2018-01-02] MEDS: AMIODARONE HCL 200 MG TAB PO SCH (10:19)
[2018-01-02] MEDS: PANTOPRAZOLE 40 MG 10ML VIAL IV SCH (10:19)
[2018-01-02] MEDS: CLOPIDOGREL BISULFATE 75 MG TAB PO SCH (10:19)
[2018-01-02] MEDS: SODIUM BICARBONATE 650 MG TAB NG SCH ×2 (10:19→17:33)
[2018-01-02] MEDS: ASPIRIN 81 MG CHEW TAB PO SCH (10:19)
--- NOTE | 2018-01-02 10:25 | Progress Note ---
DATE: January 02, 2018 ADDENDUM I spoke with the patient's son, Garth Zavala , in relation to the code status for the patient. The patient has legal documentation here as a advance directive stating that he wanted to be DNR. I spoke with the son about this, and he said he wants to talk to his mother to make a final decision. I discussed with him that the advance directives truly stumps his decision-making based on this documentation here in the chart, but he wants to talk to his mother first, and then let me know by tomorrow how to proceed. At this time, he will be continued to be on full code. I will follow up with the family tomorrow once they make a final decision. Job#: [id number] CYRIL
--- NOTE | 2018-01-02 10:29 | Progress Note ---
DATE: January 02, 2018 SUBJECTIVE: Patient is still intubated, on very little sedation. Still very difficult to extubate. FiO2 of 40%, PEEP of 5. Still has significant amount of secretions. He did have a temperature overnight and increased sputum production. OBJECTIVE/PHYSICAL EXAMINATION: VITAL SIGNS: Temperature is 100.5, pulse is 78, respiratory rate is 20, blood pressure was 120/66. He is 97%, FiO2 of 40%, PEEP of 5. GENERAL: Intubated and sedated. HEENT: Head: Normocephalic, atraumatic. Eyes: Pupils equal, round, and reactive to light bilaterally. Extraocular movements intact bilaterally. Throat: No evidence of any erythema or exudates in the posterior pharynx. Has poor dentition. Currently has an ET tube. NECK: Supple with good range of motion. PULMONARY: He is intubated and sedated, on a mechanical ventilator. CARDIOVASCULAR: Positive S1 and S2. No murmurs, rubs, or gallops appreciated. ABDOMEN: Soft, nondistended, nontender to palpation. Bowel sounds are present. MUSCULOSKELETAL: Unable to assess, currently intubated and sedated. NEUROLOGICAL: Unable to assess, intubated and sedated. SKIN: Intact. Warm to touch. Good cap refill. PSYCHIATRIC: Intubated and sedated. EXTREMITIES: He now seems to be more euvolemic on exam. LAB FINDINGS: Showed white count 12.8, hemoglobin 10.4, hematocrit is 32, platelets of 187,000. Chemistry: Sodium 141, potassium 3.7, chloride 105, bicarb 22, anion gap is 17, BUN is 89, creatinine is 2.4. His glucose is 121. MICROBIOLOGY: Repeat blood cultures are found to be negative or no growth to date. Repeat chest x-ray this morning showed findings are stable, compatible with cardiogenic pulmonary edema. Small left pleural effusion. IMPRESSION: 1. Septic shock with multiorgan failure--liver function tests and lipase levels are normal. He continues to have fever, in which I will consult infectious disease. I will get sputum cultures. My repeat blood cultures are found to be negative. Will defer to infectious disease to help with this case due to the fevers because I currently do not know the etiology of the fevers. 2. Acute hypoxemic respiratory failure--he is still on a mechanical ventilator, on very little Precedex, pulmonary is following, he seems to be more euvolemic, and also reviewed the chest x-ray, does not seem like he needs any more Lasix at this time. 3. Atrial fibrillation with rapid ventricular response--rate is controlled on amiodarone, heparin drip. Cardiology following. 4. 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 laboratories. It seems like his baseline creatinine is roughly between 2 to 2.5 based on prior history. 5. Non-ST elevation myocardial infarction--cardioprotective medications. Cardiology following. Heparin drip. 6. Elevated transaminases and acute pancreatitis, resolved. 7. Metabolic encephalopathy, currently intubated and sedated. 8. Alzheimer's dementia and questionable Parkinson's disease. 9. Prophylaxis. Heparin drip. 10. Fluids, electrolytes, nutrients. He is on tube feeds. 11. Disposition. Intensive care unit, pulmonary and cardiology consulted and have been following, infectious disease now will be consulted to manage in terms of the fever of unknown source at this time. I spent more than 33 minutes on this case. Job#: [id number]
[2018-01-02] MEDS ORDERED: FUROSEMIDE INJ 10 MG/ML 4 ML VIAL IV ONE (13:30)
--- NOTE | 2018-01-02 14:13 | Progress Note ---
DATE: January 02, 2018 PULMONARY MEDICINE PROGRESS NOTE SUBJECTIVE: Mr. Zavala was seen and examined at bedside. He continues to have very slow progress. Chest x-ray consistent with bilateral infiltrates despite giving Lasix 2 times a day at least yesterday. Temperature maximum 100.5. Chest x-ray with continued edema pattern but good position of tubes. REVIEW OF SYSTEMS: No ability to get as he is intubated. OBJECTIVE VITAL SIGNS: Afebrile, vital signs noted per electronic record. GENERAL: No acute distress, alert but intubated. HEENT: Normocephalic, atraumatic. NECK: Supple. Throat midline. LUNGS: Bilateral air entry, a few rhonchi. CARDIOVASCULAR: S1, S2. No murmurs, rubs, or gallops. ABDOMEN: Soft, nontender. EXTREMITIES: No clubbing, no cyanosis. There is 1+ edema. INTEGUMENT: No rash. No purpura. LABS: BUN 89, creatinine 2.5, potassium 3.7, 13 white count, 32 hematocrit, 187 platelets. IMPRESSION AND PLAN 1. Acute respiratory failure, intubated. 2. Dementia. 3. Pneumonia. 4. Mild breakthrough fevers. 5. Treat as fluid overload. 6. Ygiir-az-hnkipar kidney failure. Continue serial evaluations. Patient at this time, after discussion with the family, will abort the wean which we were giving. After discussion with the family, they brought in an advanced directive. They will discuss tonight regarding if they want him reintubated if he fails extubation. He is close to being extubated. Continue antibiotics. Continue to toilet the airway secretions. Follow closely. Job#: [id number]
--- NOTE | 2018-01-02 15:50 | Progress Note ---
DATE: January 02, 2018 CARDIOLOGY PROGRESS NOTE SUBJECTIVE: No major events overnight. Remains intubated and sedated. REVIEW OF SYSTEMS: Could not be completed as the patient is intubated and sedated. OBJECTIVE VITAL SIGNS: Temperature 99.3, heart rate 73, respiratory rate 19, blood pressure 116/64, satting 97% on mechanical ventilator. GENERAL: Elderly white man, intubated and sedated. CARDIOVASCULAR: Regular rate and rhythm. S2 gallops. No murmurs. Palpable carotid pulses. Palpable radial pulses. RESPIRATORY: No respiratory distress. Crackle at the bases. Diminished breath sounds left lower lobe. ABDOMEN: Soft, nondistended. EXTREMITIES: 1+ edema. NEURO AND PSYCH: The patient is intubated and sedated. LABORATORY DATA: Reviewed. IMAGING DATA: Reviewed. Chest x-ray shows stable pulmonary edema, sternal wires. TELEMETRY DATA: Reviewed. Shows rate-controlled atrial fibrillation. ASSESSMENT 1. Twi-BR-morqburdb myocardial infarction. 2. Cardiogenic shock. 3. Septic shock. 4. Pulmonary edema. 5. Hypoxemic respiratory failure requiring mechanical ventilation. 6. Acute systolic and diastolic heart failure. 7. Atrial fibrillation with rapid ventricular response. 8. History of coronary artery disease status post coronary artery bypass surgery. 9. Alzheimer's dementia. 10. Acute kidney injury and chronic kidney disease. PLAN: Continue aspirin, Plavix for his jwb-RZ-wecmswoca [place] and heparin for his ACS as well as atrial fibrillation. IV amiodarone completed. Continue oral amiodarone for rate control. Continue IV Lasix 40 mg q.8 h. Continues to make good urine output despite rise in creatinine and BUN. Has persistent pulmonary edema on chest x-ray still; so, will continue to diurese him in attempt to facilitate extubation. Currently no invasive procedures planned from cardiology standpoint while patient remains critically ill. Will address the issue of risk stratification after [id number]-RY-otgrokuty [place] with him and family once he recovers from critical illness. Thank you for this consult. Will continue to follow. Job#: [id number] EV
[2018-01-02] MEDS ORDERED: SODIUM CHLORIDE 0.9% 250ML 250 ML ONE (18:35)
[2018-01-02 18:47] LABS: AMYLASE 87 U/L (25-125); LIPASE 81 U/L (8-78)
[2018-01-02] MEDS: FLUCONAZOLE 200 MG/100 ML 100 ML IV SCH (19:03)
[2018-01-03] VITALS (66 sets, daily range): BP systolic 105–133; BP diastolic 46–84
[2018-01-03] MEDS: DEXMEDETOMIDINE HCL 200 MCG in SODIUM CHLORIDE 0.9% 50ML 48 ML IV PRN ×5 (04:00→20:34)
[2018-01-03 05:50] LABS: BASOPHILS # (AUTO) 0.1 (0.0-0.1); BASOPHILS % 0.4 % (0.0-1.0); EOSINOPHILS # (AUTO) 0.2 (0.0-0.4); HEMOGLOBIN 10.1 g/dL (14.0-18.0); LYMPHOCYTES % 6.6 % (18.0-39.1); MEAN CORPUSCULAR HEMOGLOBIN 28.9 pg (28-32); MEAN CORPUSCULAR HGB CONC 32.6 g/dL (31-35); MEAN CORPUSCULAR VOLUME 88.6 fL (81-99); MONOCYTES % 6.5 % (4.4-11.3); NEUTROPHILS # (AUTO) 13.2 (2.1-6.9); NEUTROPHILS % 84.3 % (38.7-80.0); PLATELET COUNT 213 x10e3/uL (140-360); RED CELL DISTRIBUTION WIDTH 16.7 % (11.7-14.4)
[2018-01-03] MEDS: ACETAMINOPHEN 325 MG/10 ML UDC NG PRN (05:59)
[2018-01-03 06:10] LABS: ANION GAP 18.1 mmol/L (8-16); CALCIUM 9.2 mg/dL (8.4-10.2); CREATININE, SERUM 2.71 mg/dL (0.72-1.25); POTASSIUM 4.1 mmol/L (3.5-5.1)
--- NOTE | 2018-01-03 06:54 | Diagnostic Imaging Report ---
EXAMINATION: CHEST SINGLE (PORTABLE) INDICATION: CHF. COMPARISON: 01/02/2018 FINDINGS: TUBES and LINES: Right IJ central line catheter and endotracheal and nasogastric tubes are stable LUNGS: Lungs are not well inflated. There are bibasilar atelectasis left greater than right. There is perihilar interstitial opacities, consistent with interstitial edema. PLEURA: Small left pleural effusion. HEART AND MEDIASTINUM: Cardiac size is severely enlarged. Status post CABG BONES AND SOFT TISSUES: No acute osseous lesion. Soft tissues are unremarkable. UPPER ABDOMEN: No free air under the diaphragm. IMPRESSION: Stable chest with evidence of postsurgical CABG, mild edema, bibasilar atelectasis and a small left pleural effusion Signed by: Dr. Barry Salas M.D. on 01/03/2018 6:51 AM
--- NOTE | 2018-01-03 09:33 | Progress Note ---
DATE: January 03, 2018 INTERNAL MEDICINE PROGRESS NOTE SUBJECTIVE: Patient is still intubated. Still on Precedex and some fentanyl, but very low doses. He still has FIO2 of 40% and PEEP of 5. May have a trial of extubation later today. Family is still making decision in terms of code status. OBJECTIVE VITAL SIGNS: Temperature is 100.4. His T-max was 100.5. Pulse 70, respiratory rate 18, blood pressure 115/58. He is 95% on mechanical ventilator and FIO2 of 40% and PEEP of 5. GENERAL: Currently intubated and sedated. HEENT: Head is normocephalic and atraumatic. Eyes: Pupils equal, round and reactive to light bilaterally. Extraocular movements intact bilaterally. NECK: Supple. Good range of motion. Throat: He had an ET tube. PULMONARY: Intubated and sedated on mechanical ventilator. CARDIOVASCULAR: Positive S1 and S2. No murmurs, rubs or gallops appreciated. ABDOMEN: Soft, nondistended and nontender to palpation. Bowel sounds present. MUSCULOSKELETAL: Unable to assess. NEUROLOGICAL: Unable to assess. SKIN: Intact. Warm to touch. Good cap refill. PSYCHIATRIC: He is intubated and sedated. EXTREMITIES: He has may be trace to 1+ pedal edema. LAB FINDINGS: Show white count of 15.5, hemoglobin 10, hematocrit 31, and platelets of 213,000. Coagulation: PTT is 56.9. Chemistry: Sodium 143, potassium 4.1, chloride 105, bicarb 24, anion gap of 18, BUN is 107, creatinine is 2.7, and glucose is 148. Calcium is 9.2. Repeat cultures were no growth. IMAGING: Chest x-ray shows stable chest with some bibasilar atelectasis and small pleural effusion. IMPRESSION 1. Septic shock with multiorgan failure: His liver function tests and lipase are normal. He still continues to have a low-grade temperature of 100.5 with a T-max of 100.7. Infectious disease has been consulted and arrangement of antibiotics were deferred to infectious disease. His cultures continue to be negative though. 2. Acute hypoxemic respiratory failure: He is currently on a mechanical ventilator, Precedex, and fentanyl low doses. Chest x-ray reviewed. Pulmonary is following to determine when extubation is appropriate for this patient. 3. Atrial fibrillation with rapid ventricular response: Rate is controlled on heparin drip. Cardiology is following. 4. Acute kidney injury on chronic kidney disease: Patient's BUN is still elevated at 107. There likely is a contribution to the diuretics that we gave. He is also on tube feeds leading to his underlying BUN being elevated. He is making urine, but my concern is that the BUN may make him encephalopathic, which will be very difficult for us to extubate. If his BUN continues to rise, I will need to speak with the family about possibly needing temporary hemodialysis to help assist in this patient's care. His creatinine is 2.7. His baseline is roughly around 2 to 2.5. Will continue to monitor closely. He is currently not on any steroids. 5. Tgz-FY-orzdnuu elevation myocardial infarction: Cardioprotective meds. On heparin drip. Cardiology following. 6. Elevated transaminases and acute pancreatitis, resolved. 7. Metabolic encephalopathy: Currently, intubated and sedated. 8. Alzheimer dementia and questionable Parkinson disease. 9. Prophylaxis: Heparin drip. 10. Fluid, electrolytes, nutrients: On tube feeds. 11. Disposition: Currently, in the intensive care unit. Pulmonary, cardiology and infectious disease have all been consulted. He continues to have low-grade temperature, which will defer to infectious disease. I will get a.m. labs. Family is still making a decision in terms of code status in which I spoke with them yesterday, as well as the pulmonary critical care physician. They may have an answer later today in terms of code status. Otherwise, will continue with full code at this moment. Job#: [id number] CYRIL
[2018-01-03] MEDS: AMIODARONE HCL 200 MG TAB PO SCH (10:08)
[2018-01-03] MEDS: SODIUM BICARBONATE 650 MG TAB NG SCH ×2 (10:08→19:58)
[2018-01-03] MEDS: CLOPIDOGREL BISULFATE 75 MG TAB PO SCH (10:08)
[2018-01-03] MEDS: ASPIRIN 81 MG CHEW TAB PO SCH (10:08)
[2018-01-03] MEDS: PANTOPRAZOLE 40 MG 10ML VIAL IV SCH (10:08)
--- NOTE | 2018-01-03 12:16 | Progress Note ---
DATE: January 03, 2018 ADDENDUM I spoke with the family, including Garth Zavala Jr., with the patient's and the patient's daughter at bedside with the clinical nurse present on speaker in which we discussed code status in relation to Mr. Garth Zavala. I discussed overall medical care and current treatment for him right now. I discussed with him that the patient has acute kidney injury, and at some point he may need dialysis. He does have a low-grade temperature, currently unknown, but infectious disease was consulted. He does know that his father had a heart attack, and he will need a left heart cath at some point during the hospitalization. I also discussed with him the concern that the pulmonary critical care doctor needs to find out if he gets extubated do we need to intubate him back. At this time, after discussing with his family, they have agreed to make their father DNR. He does not want any chest compressions. In the event he gets extubated, they do not want him to be reintubated back. At this time, the patient will be DNR. I discussed this with the nurse, which will be changed into the system. Once again, the conversation was witnessed with the floor nurse taking care of the patient today. I discussed this via speaker with Garth ZavalaJr., the patient's daughter and . Job#: [id number] CYRIL
[2018-01-03] MEDS: HEPARIN 25,000U/0.45% NS 250ML 250 ML IV SCH (13:15)
[2018-01-03] MEDS ORDERED: HYDROCODONE/APAP 5MG-325MG TAB PO PRN (15:15)
--- NOTE | 2018-01-03 16:47 | Progress Note ---
DATE: January 03, 2018 PULMONARY MEDICINE PROGRESS NOTE SUBJECTIVE: Mr. Zavala was seen and examined at the bedside. He continues intubated. He is on ventilator. Good urine output, 2.3 L in, 1.9 L output recorded. One bowel movement. Chest x-ray continues to show stability in the pulmonary edema pattern. He is currently on 150 mcg per hour and Precedex 0.7 mcg/kg per minute. The patient was given a wean attempt today. The patient failed it due to respiratory limitation. He begins to get very tachypneic at 30 minutes out. REVIEW OF SYSTEMS: Cannot get as he is alerted. OBJECTIVE VITAL SIGNS: Afebrile, vital signs noted per electronic record. GENERAL: In no acute distress, alert, on sedation. HEENT: Normocephalic, atraumatic. NECK: Supple. No thyromegaly. LUNGS: Bilateral air entry. Rare rhonchi. CARDIOVASCULAR: S1, S2. No murmurs, rubs or gallops. ABDOMEN: Soft, nontender. EXTREMITIES: No clubbing, no cyanosis. There is 1+ edema. INTEGUMENT: No rash. No purpura. LABORATORY DATA: BUN ____, creatinine 2.7. White count 15.5, increased. Hematocrit 31. IMPRESSION 1. Acute respiratory failure, intubated. 2. Septic shock, improved. 3. Pneumonia. 4. Superimposed fluid overload, possible. 5. Aavef-uf-wcbvmpf kidney failure. 6. Possible urinary tract infection, 6-10 white blood cells. PLAN: At this time, continue daily weaning attempts. The patient has been having lack of improvement. Will give him corticosteroid trial. The patient remains DNR. He also remains do not reintubate once he is extubated. Continue to maintain feeds if needed and sedation as well. Job#: [id number]
[2018-01-03] MEDS ORDERED: MORPHINE SULFATE 2 MG/ML SYR IV PRN (18:45)
[2018-01-03] MEDS: FLUCONAZOLE 200 MG/100 ML 100 ML IV SCH (19:58)
[2018-01-03] MEDS: METHYLPREDNISOLONE SOD SUCC 40 MG/ML VIAL IV SCH (21:22)
[2018-01-04] VITALS (32 sets, daily range): BP systolic 89–153; BP diastolic 57–98
[2018-01-04] MEDS: DEXMEDETOMIDINE HCL 200 MCG in SODIUM CHLORIDE 0.9% 50ML 48 ML IV PRN ×3 (00:59→10:00)
[2018-01-04 04:57] LABS: ANION GAP 21.6 mmol/L (8-16); CALCIUM 9.2 mg/dL (8.4-10.2); CREATININE, SERUM 2.55 mg/dL (0.72-1.25); POTASSIUM 4.6 mmol/L (3.5-5.1)
[2018-01-04] MEDS: METHYLPREDNISOLONE SOD SUCC 40 MG/ML VIAL IV SCH ×3 (05:47→21:39)
[2018-01-04 06:35] LABS: BASOPHILS % 0.2 % (0.0-1.0); HEMATOCRIT 31.6 % (38.2-49.6); HEMOGLOBIN 10.1 g/dL (14.0-18.0); LYMPHOCYTES # (AUTO) 0.5 (1.0-3.2); LYMPHOCYTES % 3.1 % (18.0-39.1); MEAN CORPUSCULAR HEMOGLOBIN 28.5 pg (28-32); MONOCYTES # (AUTO) 0.2 (0.2-0.8); MONOCYTES % 0.9 % (4.4-11.3); NEUTROPHILS # (AUTO) 16.3 (2.1-6.9); NEUTROPHILS % 94.7 % (38.7-80.0); PLATELET COUNT 269 x10e3/uL (140-360); RED BLOOD COUNT 3.55 x10e6/uL (4.3-5.7); RED CELL DISTRIBUTION WIDTH 16.8 % (11.7-14.4)
[2018-01-04] MEDS: HEPARIN 25,000U/0.45% NS 250ML 250 ML IV SCH (06:40)
[2018-01-04] MEDS: SODIUM BICARBONATE 650 MG TAB NG SCH ×2 (09:12→17:00)
[2018-01-04] MEDS: AMIODARONE HCL 200 MG TAB PO SCH (09:12)
[2018-01-04] MEDS: CLOPIDOGREL BISULFATE 75 MG TAB PO SCH (09:12)
[2018-01-04] MEDS: PANTOPRAZOLE 40 MG 10ML VIAL IV SCH (09:12)
[2018-01-04] MEDS: ASPIRIN 81 MG CHEW TAB PO SCH (09:12)
--- NOTE | 2018-01-04 10:22 | Progress Note ---
DATE: January 04, 2018 SUBJECTIVE: The patient is still intubated, but we are in the process of weaning him off of sedation for possible extubation later today. We had a family meeting yesterday via phone conference and they have agreed to DNR status, which is currently in the system. The patient today is doing relatively well. His blood pressure is stable. He is still on mechanical ventilator with FIO2 of 40% and PEEP of 5. OBJECTIVE VITAL SIGNS: Temperature 98.4, pulse 82, respiratory rate 23, which is what is recorded, on mechanical ventilator, FIO2 of 40 and PEEP of 5. His blood pressure is 134/65, currently. Pulse is 76. GENERAL: Intubated and sedated. HEENT: Head is normocephalic, atraumatic. Eyes: Pupils equal, round and reactive to light bilaterally. Extraocular movements intact bilaterally. Throat with no evidence of erythema or exudates in the posterior pharynx. NECK: Supple with good range of motion. PULMONARY: Currently on mechanical ventilator, intubated and sedated. CARDIOVASCULAR: Positive S1 and S2, no murmurs, rubs or gallops appreciated. ABDOMEN: Soft, nondistended, nontender on palpation. Bowel sounds were present. MUSCULOSKELETAL: Intubated and sedated. NEUROLOGIC: Intubated and sedated. PSYCHIATRIC: Intubated and sedated. LABORATORY DATA: White count is 17.2, hemoglobin 10.1, hematocrit 32, platelets of 269,000. Chemistry: Sodium 143, potassium 4.6, chloride 104, bicarb 22, anion gap of 21, BUN 124, creatinine 2.55. Glucose 173. Calcium 9.2. Cultures: Blood cultures repeat were no growth to date. IMAGING STUDIES: Performed on 01/03/2018 stable chest x-ray. IMPRESSION 1. Septic shock with multiorgan failure with now improved LFTs and lipase levels. He is currently afebrile, but his white count continues to be elevated. I do not know the etiology of his white count being so high. There are some reports that last night his T max was 100.4. He is currently on IV antibiotics, and this will be deferred to infectious disease. 2. Acute hypoxic respiratory failure--process is to wean him off of sedation today and possibly extubation later today. 3. Atrial fibrillation with rapid ventricular response. His rate is controlled. Heparin drip. Cardiology following. 4. Acute kidney injury on chronic kidney disease--His creatinine did downtrend but his BUN continues to rise, and again this is likely a combination of his tube feeds as well as his acute kidney injury. At this time, there is no clear indication for [employer] at this time, but if he continues to be more uremic and difficult to extubate, we may need to do some dialysis in order for us to improve his cognition for extubation. I discussed this with the family yesterday. 5. Vyh-RZ-ubykzdo elevation myocardial infarction: Cardioprotective meds. On heparin drip. Cardiology following. 6. Elevated transaminases and acute pancreatitis, resolved. 7. Metabolic encephalopathy--intubated and sedated. 8. Alzheimer's dementia and questionable dementia. 9. Prophylaxis: Heparin drip. 10. Fluid, electrolytes, nutrients: On tube feeds. DISPOSITION: The patient continues to be in ICU. Pulmonary, critical care, cardiomegaly and infectious disease are all managing. Once again, we had a long discussion with the family yesterday by phone via conference call, and they had all agreed to DNR status. A DNR order has been placed, and will continue to follow and get a.m. labs. At this time, the etiology of his white count being elevated is unknown. Job#: [id number]
[2018-01-04 10:24] LABS: BAND NEUTROPHILS % (MANUAL) 4 %; LYMPHOCYTES % (MANUAL) 4 % (19-48); NEUTROPHILS % (MANUAL) 92 % (40-74); PLATELET ESTIMATE ADEQUATE; PLATELET MORPHOLOGY COMMENT NORMAL; RBC MORPHOLOGY COMMENT NORMAL
--- NOTE | 2018-01-04 15:19 | Progress Note ---
DATE: January 04, 2018 CARDIOLOGY PROGRESS NOTE SUBJECTIVE: Mr. Zavala has been extubated. He remains hoarse and mildly confused. OBJECTIVE VITAL SIGNS: Afebrile. Heart rate 73. Blood pressure is 137/59. CARDIOVASCULAR: Irregular rhythm. LUNGS: Crackles and occasional rhonchi bilaterally. ABDOMEN: Is distended. Bowel sounds are heard. The patient remains on oral amiodarone as well as intravenous heparin and antiplatelet therapy for his Non-ST segment elevation myocardial infarction. Hemoglobin is 10. Creatinine 2.55. Chest x-ray shows pleural effusions and atelectasis. ASSESSMENT: Non-ST segment elevation myocardial infarction. At this point the patient is progressing well. We will stop his intravenous heparin. Keep him on DVT dose of Lovenox as well as dual antiplatelet therapy. His renal function will exclude him from having a coronary angiogram. Overall prognosis is guarded. Job#: [id number]
--- NOTE | 2018-01-04 16:14 | Progress Note ---
DATE: January 04, 2018 PULMONARY MEDICINE PROGRESS NOTE SUBJECTIVE: Mr. Zavala was seen and examined at the bedside. The patient at this time with 93% oxygen saturation, 2 liters per minute by nasal cannula. He was intubated earlier and subsequently extubated with 0.9 liters out, 1.2 liters in. Precedex remains on at this time, although we are weaning off. REVIEW OF SYSTEMS: Cannot get as he is alerted. OBJECTIVE VITAL SIGNS: Afebrile. Vital signs noted per the chart record. GENERAL: In no apparent distress, alert but not oriented. HEENT: Normocephalic, atraumatic. NECK: Supple. Throat midline. LUNGS: Bilateral air entry decreased throughout. A few rhonchi. CARDIOVASCULAR: S1 and S2 and no murmurs, rubs or gallops. ABDOMEN: Soft and nontender. EXTREMITIES: No clubbing or cyanosis. There is trace edema. INTEGUMENT: No rash, no purpura. LABORATORY DATA: White count 17, hematocrit 32, platelets 269,000, BUN 124, creatinine 2.5. Chest x-ray with mild edema pattern. IMPRESSION AND PLAN 1. Acute respiratory failure, extubated. 2. Pneumonitis. 3. Possible fluid overload superimposed. 4. Systolic cardiomyopathy. LVEF 25% to 30%. 5. Atrial fibrillation with rapid rate, now controlled. 6. Possible urinary tract infection. 7. Dementia. 8. Punas-jj-hjtvsqw kidney failure. 9. Continue current treatment at this time. 10. Follow up the white count. 11. Will continue steroids another day and consider decreasing tomorrow. 12. Solu-Medrol may or may not have been what helped him to get extubated. 13. Continue weaning down the Precedex. 14. Serial neurologic exams. 15. Need for swallow evaluation when he is stronger. As of right now, he seems to be an aspiration risk. 16. Continue cardiac medications in the meantime. Job#: [id number]
[2018-01-04] MEDS: ENOXAPARIN 30 MG/0.3 ML SYR SC SCH (17:17)
[2018-01-04] MEDS: FLUCONAZOLE 200 MG/100 ML 100 ML IV SCH (17:17)
[2018-01-04] MEDS ORDERED: IOPAMIDOL 370 MG/ML 200 ML INFUS..BTL INJ ONE (20:14)
[2018-01-04] MEDS ORDERED: SODIUM CHLORIDE 0.9% 50ML 0 ML ONE (20:14)
[2018-01-05] VITALS (27 sets, daily range): BP systolic 94–159; BP diastolic 65–95
[2018-01-05 04:37] LABS: BASOPHILS % 0.2 % (0.0-1.0); HEMATOCRIT 32.4 % (38.2-49.6); HEMOGLOBIN 10.7 g/dL (14.0-18.0); LYMPHOCYTES # (AUTO) 0.5 (1.0-3.2); LYMPHOCYTES % 3.1 % (18.0-39.1); MEAN CORPUSCULAR HEMOGLOBIN 28.2 pg (28-32); MONOCYTES # (AUTO) 0.3 (0.2-0.8); MONOCYTES % 1.9 % (4.4-11.3); NEUTROPHILS # (AUTO) 15.5 (2.1-6.9); NEUTROPHILS % 93.6 % (38.7-80.0); PLATELET COUNT 342 x10e3/uL (140-360); RED BLOOD COUNT 3.79 x10e6/uL (4.3-5.7); RED CELL DISTRIBUTION WIDTH 16.5 % (11.7-14.4)
[2018-01-05 04:50] LABS: MEAN CORPUSCULAR VOLUME 85.5 fL (81-99)
[2018-01-05 05:10] LABS: ANION GAP 21.5 mmol/L (8-16); CALCIUM 9.8 mg/dL (8.4-10.2); CREATININE, SERUM 2.22 mg/dL (0.72-1.25)
[2018-01-05 05:40] LABS: POTASSIUM 3.5 mmol/L (3.5-5.1)
--- NOTE | 2018-01-05 07:02 | Diagnostic Imaging Report ---
EXAMINATION: CHEST SINGLE (PORTABLE) INDICATION: CHF. COMPARISON: None FINDINGS: TUBES and LINES: Right IJ central line catheter with tip at the level of the SVC LUNGS: Lungs are not well inflated. There are bibasilar atelectasis. There is perihilar interstitial opacities, consistent with interstitial edema. PLEURA: No pleural effusion or pneumothorax. Right lateral costophrenic angle is excluded from the film HEART AND MEDIASTINUM: Cardiac size is moderately enlarged. There are atherosclerotic calcifications within the aorta. Sternotomy wires are intact BONES AND SOFT TISSUES: No acute osseous lesion. Soft tissues are unremarkable. UPPER ABDOMEN: No free air under the diaphragm. IMPRESSION: Findings are compatible with cardiogenic pulmonary edema Signed by: Dr. Barry Salas M.D. on 01/05/2018 6:58 AM
[2018-01-05 08:48] LABS: ANISOCYTOSIS SLIGHT; HYPOCHROMASIA SLIGHT; NEUTROPHILS % (MANUAL) 100 % (40-74); PLATELET ESTIMATE ADEQUATE; PLATELET MORPHOLOGY COMMENT NORMAL; RBC MORPHOLOGY COMMENT NORMAL
[2018-01-05] MEDS: METHYLPREDNISOLONE SOD SUCC 40 MG/ML VIAL IV SCH ×2 (08:50→22:00)
[2018-01-05] MEDS: PANTOPRAZOLE 40 MG 10ML VIAL IV SCH (08:50)
[2018-01-05] MEDS ORDERED: POTASSIUM CHLORIDE 20MEQ/100ML 200 ML IV ONE (10:15)
[2018-01-05] MEDS ORDERED: ALTEPLASE RECOMBINANT 2 MG/2 ML VIAL IV PRN (10:30)
[2018-01-05] MEDS: FUROSEMIDE INJ 10 MG/ML 4 ML VIAL IV SCH ×2 (11:25→22:00)
--- NOTE | 2018-01-05 11:59 | Progress Note ---
DATE: January 05, 2018 SUBJECTIVE: The patient is now extubated. The patient was extubated yesterday. He is currently doing well. He is alert and oriented on examination. He is scheduled for speech therapy, PT and OT today. He is otherwise doing good with no issues. No overnight events. OBJECTIVE VITAL SIGNS: Temperature 97.8, pulse 111, respiratory rate 20, blood pressure 137/87, pulse ox 94%. He is on 4 L nasal cannula. LAB FINDINGS: White count 16.5, hemoglobin 10.7, hematocrit 32, platelets 342. Chemistries: Sodium 149, potassium 3.5, chloride 109, bicarb 22, anion gap 21, BUN 124, creatinine 2.2, glucose 168, calcium 9.8. Urinalysis: None. MICROBIOLOGY: Blood cultures repeat were negative. Sputum culture is negative. IMAGING STUDIES: Chest x-ray performed on 01/05/2018 showed some evidence of pulmonary edema. PHYSICAL EXAMINATION GENERAL: Not in acute distress. Alert and oriented times 3. Cooperative on examination. Now he is extubated. HEENT: Head is normocephalic, atraumatic. Eyes: Pupils equal, round and reactive to light bilaterally. Extraocular movements intact bilaterally. NECK: Supple with good range of motion. THROAT: No evidence of any erythema or exudate in the posterior pharynx. Has poor dentition. PULMONARY: Clear to auscultation bilaterally. No wheezing, no rales, no rhonchi, no crackles appreciated. CARDIOVASCULAR: Positive S1 and S2. No murmurs, rubs or gallops appreciated. ABDOMEN: Soft, nondistended, nontender on palpation. Bowel sounds are present. MUSCULOSKELETAL: Strength is 5/5 throughout. No evidence of any musculoskeletal deficit on examination. No weakness appreciated. NEUROLOGIC: Cranial nerves II through XII grossly intact. No evidence of any neurologic deficit on exam. SKIN: Intact. Warm to touch. Good cap refill. PSYCHIATRIC: Normal affect and mood. EXTREMITIES: No edema. Good range of motion throughout. IMPRESSION 1. Septic shock with multiorgan failure, now improved. He is afebrile. He is still on IV antibiotics. All cultures are negative. ID is following. 2. Acute hypoxemic respiratory failure--now extubated since 01/04/2018. 3. Atrial fibrillation with rapid ventricular response. Rate is controlled. He is still on a heparin drip. Cardiology following. 4. Acute kidney injury on chronic kidney disease, stage 3. His creatinine did downtrend to 2.2, likely his baseline. BUN elevated at 124, but he was on tube feeds and was given steroids, which is a likely a combination of both leading to his rise in BUN. No need for PRECINCT CAPTAIN at this time. Will give Diuril due to the elevated sodium and to help with pulmonary edema. 5. Hypernatremia. Will get a.m. labs. Put on Diuril. 6. Dal-YD-dyrhafc elevation myocardial infarction. Cardioprotective meds. Heparin drip. Cardiology following. 7. Elevated transaminases and acute pancreatitis, resolved. 8. Metabolic encephalopathy, now extubated, improved. 9. Alzheimer's dementia with questionable dementia. 10. Prophylaxis: Heparin drip. 11. Physical therapy and occupational therapy: Evaluate and treat. 12. Speech therapy: Evaluate and treat. 13. Fluid, electrolytes, nutrients: Tube feeds for now. Speech therapy today to evaluate for swallowing and restart diet based on their recommendations. 14. Disposition: Patient continues to be in ICU, but he is currently extubated. He is doing much better now. We are going to get PT, OT and speech therapy to evaluate him. He is still currently DNR as per the family's wishes and the patient's advanced directives. Pulmonary, critical care, ID and cardiology are all following. If the patient improves likely tomorrow, transfer to the IMU floor. Job#: [id number]
--- NOTE | 2018-01-05 12:00 | Progress Note ---
DATE: January 05, 2018 PULMONARY MEDICINE PROGRESS NOTE SUBJECTIVE: Mr. Zavala was seen and examined at bedside. He continues with very poor mentation. He is also very low on energy. Has 88% to 94% oxygen saturation. He is on 4 L per minute by nasal cannula. Had 0.8 L in and 1.9 L out. The patient is currently still n.p.o. while awaiting speech evaluation. REVIEW OF SYSTEMS: No headache. No rash. Limited due to poor memory. PHYSICAL EXAMINATION VITAL SIGNS: Afebrile. Vital signs noted per electronic record. GENERAL: No acute distress, alert, calm. HEENT: Normocephalic, atraumatic. NECK: Supple. Throat midline. LUNGS: Bilateral air entry, rare rhonchi. CARDIOVASCULAR: S1 and S2. No murmurs, rubs or gallops. ABDOMEN: Soft and nontender. EXTREMITIES: No clubbing. No cyanosis. There is trace edema. INTEGUMENT: No rash, no purpura. LABS: White count 16, 32 hematocrit, 342 platelets, 3.5 potassium, 2.2 creatinine, 124 BUN. IMPRESSION AND PLAN 1. Pneumonia. 2. Possible fluid overload. 3. Eluhz-dr-pdafkmn kidney failure. 4. Cardiac arrhythmia with rapid ventricular rate. 5. Encephalopathy, dementia, delirium. 6. Dysphagia, under evaluation. Swallow evaluation today. Get PT evaluation. Consideration for Dobbhoff tube to be placed if patient is not able to swallow. Continue steroids for now as the patient was extubated after starting steroids. Will consider changing to prednisone when we have GI access. Continue antibiotics and Diflucan per infectious disease expert. Will follow along closely. Job#: [id number]
[2018-01-05] MEDS: CLOPIDOGREL BISULFATE 75 MG TAB PO SCH (14:05)
[2018-01-05] MEDS: ASPIRIN 81 MG CHEW TAB PO SCH (14:05)
[2018-01-05] MEDS: AMIODARONE HCL 200 MG TAB PO SCH (14:05)
[2018-01-05] MEDS: SODIUM BICARBONATE 650 MG TAB NG SCH ×2 (14:05→16:57)
[2018-01-05] MEDS ORDERED: DEXTROSE 50% SYRINGE 50 ML IV PRN (16:15)
[2018-01-05] MEDS ORDERED: INSULIN LISPRO 100 UNIT/1 ML 3ML VIAL SQ SCH (16:30)
[2018-01-05] MEDS: FLUCONAZOLE 200 MG/100 ML 100 ML IV SCH (16:57)
[2018-01-05] MEDS: INSULIN LISPRO 100 UNIT/1 ML 3ML VIAL SQ SCH ×2 (16:57→21:00)
[2018-01-05] MEDS: ENOXAPARIN 30 MG/0.3 ML SYR SC SCH (16:57)
[2018-01-05] MEDS: QUETIAPINE FUMARATE 25 MG TAB PO PRN (18:09)
--- NOTE | 2018-01-05 18:53 | Progress Note ---
DATE: January 05, 2018 CARDIOLOGY PROGRESS NOTE SUBJECTIVE: The patient denies chest pain or shortness of breath. OBJECTIVE VITAL SIGNS: Temperature 98.3 degrees, pulse 110, respiratory rate 16, blood pressure 107/86, oxygen saturation 96% on 6 L nasal cannula. GENERAL: Awake, alert, no acute distress. Voice is hoarse. LUNGS: Clear to auscultation bilaterally. No wheezes or crackles. CARDIOVASCULAR: Normal rate, regular rhythm. No murmur. Normal S1, S2. ABDOMEN: Soft, nontender. EXTREMITIES: 1+ pitting edema. CARDIAC MEDICATIONS 1. Amiodarone 200 mg p.o. daily. 2. Plavix 75 mg p.o. daily. 3. Aspirin 81 mg p.o. daily. 4. Furosemide 40 mg IV q.12 h. LABS: WBC 16.55, hemoglobin 10.7, hematocrit 32.4, platelets 342,000. Sodium 149, potassium 3.5, chloride 109, CO2 22, BUN 124, creatinine 2.22. TELEMETRY: Atrial fibrillation. CHEST X-RAY: Findings compatible with cardiogenic pulmonary edema. IMPRESSION 1. Sepsis with multiorgan failure. 2. Acute hypoxic respiratory, now extubated. 3. Atrial fibrillation with rapid ventricular rate. 4. Non-ST elevation myocardial infarction. 5. Acute kidney injury on chronic kidney disease. PLAN: Continue current cardiac medications. The patient is not a candidate for invasive cardiac evaluation due to his renal function. Continue medical therapy. The patient's heart rate is not well controlled. We will start the patient on beta blockade. The patient will need anticoagulation for CVA prophylaxis. Discuss options with the family. Continue intravenous diuretics. Monitor volume status closely. Thank you for this consult. We will continue to follow. Job#: [id number] SHERRY ARROYO
[2018-01-05] MEDS ORDERED: FUROSEMIDE INJ 10 MG/ML 4 ML VIAL ONE (22:10)
[2018-01-06] VITALS (41 sets, daily range): BP systolic 75–140; BP diastolic 26–116
[2018-01-06 05:22] LABS: BASOPHILS % 0.2 % (0.0-1.0); HEMATOCRIT 31.3 % (38.2-49.6); HEMOGLOBIN 10.3 g/dL (14.0-18.0); LYMPHOCYTES # (AUTO) 0.5 (1.0-3.2); MEAN CORPUSCULAR HEMOGLOBIN 28.3 pg (28-32); MEAN CORPUSCULAR HGB CONC 32.9 g/dL (31-35); MONOCYTES # (AUTO) 0.3 (0.2-0.8); MONOCYTES % 2.5 % (4.4-11.3); NEUTROPHILS # (AUTO) 9.5 (2.1-6.9); NEUTROPHILS % 91.4 % (38.7-80.0); PLATELET COUNT 371 x10e3/uL (140-360); RED BLOOD COUNT 3.64 x10e6/uL (4.3-5.7); RED CELL DISTRIBUTION WIDTH 16.5 % (11.7-14.4)
[2018-01-06 06:07] LABS: ANION GAP 21.7 mmol/L (8-16); CALCIUM 9.1 mg/dL (8.4-10.2); CREATININE, SERUM 2.46 mg/dL (0.72-1.25); POTASSIUM 3.7 mmol/L (3.5-5.1)
[2018-01-06] MEDS: CLOPIDOGREL BISULFATE 75 MG TAB PO SCH (08:23)
[2018-01-06] MEDS: AMIODARONE HCL 200 MG TAB PO SCH (08:23)
[2018-01-06] MEDS: PANTOPRAZOLE 40 MG 10ML VIAL IV SCH (08:23)
[2018-01-06] MEDS: METHYLPREDNISOLONE SOD SUCC 40 MG/ML VIAL IV SCH (08:23)
[2018-01-06] MEDS: ASPIRIN 81 MG CHEW TAB PO SCH (08:23)
[2018-01-06] MEDS: QUETIAPINE FUMARATE 25 MG TAB PO PRN (08:23)
[2018-01-06] MEDS: METOPROLOL TARTRATE 25 MG TAB PO SCH ×3 (08:26→18:00)
[2018-01-06] MEDS: INSULIN LISPRO 100 UNIT/1 ML 3ML VIAL SQ SCH ×4 (08:28→21:00)
--- NOTE | 2018-01-06 09:45 | Consultation ---
DATE OF CONSULTATION: REASON FOR CONSULTATION: Pneumonia, recommendation of antibiotics this patient who is currently in the intensive care unit intubated, sedated, there is no family. HISTORY OF PRESENT ILLNESS: He is a 77-year-old white male, who has a past medical history of Alzheimer, which is getting progressively worse, history hypertension, encephalopathy. The patient was brought to the emergency room with worsening condition and confusion for 3 days, when he came to the hospital. Patient came to emergency room, where he was evaluated and admitted. There was concern if he has UTI. Upon arrival, the patient had elevated liver enzymes, elevated lipase, troponin and there was concern about non-STEMI. Patient was admitted. The patient who has history of hypertension, dementia. SURGICAL HISTORY: Denies. REVIEW OF SYSTEMS: Could not be obtained. FAMILY HISTORY: Could not be obtained. He was sepsis, multiorgan failure. He was started on meropenem and vancomycin when he first came. The patient came in on December 27. He was seen by critical care. He was seen by cardiology. The patient is currently intubated, sedated. PHYSICAL EXAMINATION GENERAL: Sedated, intubated. VITALS: Stable currently. HEENT: Normocephalic. NECK: No JVD. CHEST: A few crackles bilaterally at the bases. COR: S1, S2. No S3, murmur. ABDOMEN: Soft. Positive bowel sounds. No tenderness. EXTREMITIES: No edema The patient was admitted with doa-MR-gzldywepd myocardial infarction, cardiogenic shock, septic shock, pulmonary edema, respiratory failure, atrial fibrillation, coronary artery disease, Alzheimer, wbexp-vj-ktmyqjz kidney disease. His blood cultures have been negative for 72 hours. His white count is 12.8, hemoglobin 10.46. Sodium 141, potassium 3.7, creatinine 2.48. Albumin of 1.9. Physical examination as mentioned above. He is noncommunicative. He has been running fever since admission, actually since December 29. Otherwise, unremarkable examination. He is currently on meropenem 500 q.6 and received 1 dose of vancomycin. IMPRESSIONS 1. Fever persisting. 2. Respiratory failure. I would suggest to discontinue doxycycline and meropenem for the time being especially at that dosage since his cultures are negative, white count is 12.1. Observe what happens over the next few days, even had pneumonia. He has been on IV antibiotic for 7 days now. His CAT scan on admission showed there is acute pancreatitis, cholelithiasis, and chronic diverticulosis. Chest x-ray showed pulmonary edema. His amylase on admission was 658. I would suggest to recheck amylase, lipase. Will check a procalcitonin and lactic acid. Concern maybe he has fungal infection, so I am going to put on Diflucan until we get the blood test. Further recommendations to follow. Job#: [id number] CQ
[2018-01-06] MEDS ORDERED: SIMETHICONE 80 MG CHEW ONE (11:37)
[2018-01-06] MEDS ORDERED: DEXTROSE 5% 1,000 ML IV ONE ×2 (11:38→11:45)
[2018-01-06] MEDS: SODIUM BICARBONATE 650 MG TAB NG SCH (11:48)
[2018-01-06] MEDS: SIMETHICONE 80 MG CHEW PO PRN (11:48)
--- NOTE | 2018-01-06 13:51 | Progress Note ---
DATE: January 06, 2018 PULMONARY MEDICINE PROGRESS NOTE SUBJECTIVE: Mr. Zavala was seen and examined at bedside. He continues to have slow progress. He is talking more briskly today. He was actually trying to get up out of bed multiple times. Had 0.9 liters in, 2.[address] Hernandez in place. Right IJ central line in place. REVIEW OF SYSTEMS: Unable to get reliably as he is alerted. OBJECTIVE VITAL SIGNS: Afebrile. Vital signs noted per electronic record. GENERAL: No acute distress, alert, confused. HEENT: Normocephalic, atraumatic. NECK: Supple. Throat midline. LUNGS: Bilateral air entry, few rhonchi. CARDIOVASCULAR: S1 and S2. No murmurs, rubs, or gallops. ABDOMEN: Soft, nontender. EXTREMITIES: No clubbing. No cyanosis. There is trace edema. INTEGUMENT: No rash, no purpura. LABORATORY DATA: Sodium 152, potassium 3.7, BUN 131, and creatinine 2.5. IMPRESSION AND PLAN 1. Aemoj-sk-aatcigj kidney failure. 2. Pneumonia. 3. Fluid overload. 4. Weakness. 5. Dementia/encephalopathy. Continue current treatment at this time. We will try to cease the right IJ and find another access that is safer. Continue Hernandez monitoring. Repeat blood work in the morning. Check the kidney function. Patient will be allowed to eat the diet, but he will need assist. We will follow along closely. PT and OT followup. Job#: [id number] PATITO
[2018-01-06] MEDS: DEXTROSE 5% 1,000 ML IV SCH (16:15)
--- NOTE | 2018-01-06 16:31 | Progress Note ---
DATE: January 06, 2018 SUBJECTIVE: The patient is alert, awake, talking on exam, tolerating diet well. He passed a swallow eval as well. He is working with physical therapy and occupational therapy in the bed. He will be now transferred to a regular medical tele floor. OBJECTIVE VITAL SIGNS: Temperature 97.8, pulse 107, blood pressure 113/70, pulse oxygen 90%, and he is on nasal cannula. LAB FINDINGS: White count 10.3, hemoglobin 10.3, hematocrit 31, platelets 371. Chemistries: Sodium 152, potassium 3.7, chloride 110, bicarb 24, anion gap 21, BUN 131, creatinine 2.46, glucose 165, calcium 9.1. MICROBIOLOGY: None. IMAGING STUDIES: None. PHYSICAL EXAMINATION GENERAL: Not in acute distress. Alert and oriented times 3. Cooperative on examination. HEENT: Head is normocephalic, atraumatic. Eyes: Pupils are equal and reactive to light bilaterally. Extraocular movements intact bilaterally. NECK: Supple with good range of motion. THROAT: No evidence of any erythema or exudate, and the posterior pharynx has poor dentition. PULMONARY: Clear to auscultation bilaterally. No wheezing, no rales, no rhonchi, no crackles appreciated. CARDIOVASCULAR: Positive S1 and S2. No murmurs, rubs or gallops appreciated. ABDOMEN: Soft, nondistended, nontender on palpation. Bowel sounds are present. MUSCULOSKELETAL: Strength is 5/5 throughout. No evidence of any musculoskeletal deficit on examination. No weakness appreciated. NEUROLOGIC: Cranial nerves II through XII grossly intact. No evidence of any neurologic deficit on exam. SKIN: Intact. Warm to touch. Good cap refill. PSYCHIATRIC: Normal affect and mood. EXTREMITIES: No edema. Good range of motion throughout. IMPRESSION 1. Septic shock with multiorgan failure, now resolved. All cultures have been negative. IV antibiotics continuing with ID following. 2. Acute hypoxemic respiratory failure. He is now extubated since 01/04/2018. He is doing well on nasal cannula. 3. Atrial fibrillation with rapid ventricular response. Rate is controlled. He is not on any heparin drip at the moment. Cardiology is following. He is on rate-control medications. He is on aspirin and amiodarone. 4. Acute kidney injury on chronic kidney disease, stage 3. His creatinine is 2.4. BUN is elevated, though he is not uremic on examination, but he looks significantly dry on exam. We are going to switch his fluids to D5W. No need for BUTTON BREAKER at this time. 5. Hypernatremia. Will get a.m. labs. Will change fluids to D5W at 75 mL per hour. 6. Rwi-YC-ytipokn elevation myocardial infarction. Cardioprotective meds. Not on heparin drip anymore. Cardiology is following. 7. Elevated transaminases and acute pancreatitis, resolved. 8. Metabolic encephalopathy, now extubated, improved. 9. Alzheimer's dementia with questionable dementia. 10. Prophylaxis will be heparin b.i.d. 11. Fluids, electrolytes and nutrients: He now is on a regular diet. He is tolerating it well with no issues. 12. Disposition: He will be transferred to regular medical tele floor with sitter. He is doing much well now. Will get PT and OT to continue to work with him. He has improved tremendously now. We just need a left heart cath, if cardiology wants to do it on this admission or possibly be discharged and then do it as an outpatient, but we will discuss this with cardiology. Job#: [id number]
[2018-01-06] MEDS: ENOXAPARIN 30 MG/0.3 ML SYR SC SCH (17:35)
[2018-01-06] MEDS: FLUCONAZOLE 100 MG TAB PO SCH (17:35)
--- NOTE | 2018-01-06 18:20 | Progress Note ---
DATE: January 06, 2018 CARDIOLOGY PROGRESS NOTE SUBJECTIVE: The patient remains confused. OBJECTIVE VITALS: Temperature 97.7 degrees, pulse 77, respiratory rate 18, blood pressure 104/71, and oxygen saturation 93% on 3 L nasal cannula. GENERAL: An elderly man in no acute distress. Confused. LUNGS: Clear to auscultation bilaterally. No wheezes or crackles. CARDIOVASCULAR: Normal rate. Regular rhythm. No murmur. Normal S1 and S2. ABDOMEN: Soft and nontender. EXTREMITIES: With 1+ pitting edema. CARDIAC MEDICATIONS 1. Metoprolol 25 mg p.o. b.i.d. 2. Enoxaparin 30 mg subcutaneous daily. 3. Amiodarone 200 mg p.o. daily. 4. Plavix 75 mg p.o. daily. 5. Aspirin 81 mg p.o. daily. LABS: WBC 10.39, hemoglobin 10.3, hematocrit 31.3, and platelets 371,000. Sodium 152, potassium 3.7, chloride 110, CO2 24, BUN 131, creatinine 2.46. Telemetry is atrial fibrillation. IMPRESSION 1. Sepsis with multiorgan failure. 2. Acute hypoxic respiratory failure, now extubated. 3. Atrial fibrillation with rapid ventricular rate, currently rate controlled. 4. Epl-LU-szhpger elevation myocardial infarction. 5. Acute kidney injury on chronic kidney disease. RECOMMENDATIONS: Continue current cardiac medications. Will discuss possible invasive cardiac evaluation. However, he is at high risk for contrast-induced nephropathy given his renal dysfunction. This will need to be discussed with the family prior to proceeding. Continue medical therapy for now. Titrate up beta blockade for better heart rate control. In the interim, the patient needs to be started on anticoagulation for CVA prophylaxis. Will discuss with the family. Monitor volume status closely. Diuretics have been discontinued due to hypernatremia. Check BNP. Thank you for this consult. We will continue to follow. Job#: [id number] CYRIL
[2018-01-06] MEDS: FLUTICASONE PROPIONATE NASAL SPRAY NS SCH (21:18)
[2018-01-06] MEDS: HEPARIN SOD (PORCINE) 5,000 UNIT/ML VIAL SC SCH (21:18)
[2018-01-06] MEDS: SALINE 0.65% NAS SOLN 1 SPRAY BTL SCH (21:18)
[2018-01-07] VITALS (7 sets, daily range): BP systolic 105–142; BP diastolic 69–92
[2018-01-07] MEDS: METOPROLOL TARTRATE 25 MG TAB PO SCH ×4 (00:40→18:00)
[2018-01-07] MEDS: DEXTROSE 5% 1,000 ML IV SCH ×2 (01:21→18:14)
[2018-01-07 05:35] LABS: BASOPHILS % 0.1 % (0.0-1.0); HEMATOCRIT 31.8 % (38.2-49.6); HEMOGLOBIN 10.3 g/dL (14.0-18.0); LYMPHOCYTES # (AUTO) 0.6 (1.0-3.2); LYMPHOCYTES % 7.2 % (18.0-39.1); MEAN CORPUSCULAR HGB CONC 32.4 g/dL (31-35); MEAN CORPUSCULAR VOLUME 86.4 fL (81-99); MONOCYTES # (AUTO) 0.5 (0.2-0.8); MONOCYTES % 5.9 % (4.4-11.3); NEUTROPHILS # (AUTO) 7.6 (2.1-6.9); NEUTROPHILS % 85.6 % (38.7-80.0); PLATELET COUNT 371 x10e3/uL (140-360); RED BLOOD COUNT 3.68 x10e6/uL (4.3-5.7); RED CELL DISTRIBUTION WIDTH 16.6 % (11.7-14.4)
[2018-01-07 06:11] LABS: ANION GAP 22.2 mmol/L (8-16); CALCIUM 8.7 mg/dL (8.4-10.2); CREATININE, SERUM 2.9 mg/dL (0.72-1.25); MAGNESIUM 2.4 MG/DL (1.3-2.1); POTASSIUM 4.2 mmol/L (3.5-5.1)
--- NOTE | 2018-01-07 06:26 | Diagnostic Imaging Report ---
CHEST SINGLE (PORTABLE), 01/07/2018 5:00 AM Technique: CHEST SINGLE (PORTABLE) Comparison: 01/05/2018 Clinical history: Congestive heart failure Findings: Unchanged bones, soft tissues. Impression: Motion artifact evaluation. 1. Lines/Tubes: Removal of right IJ CVC. 2. Stable enlarged cardiomediastinal silhouette status post median sternotomy. 3. Persistent though mildly improved edema. Trace effusions. Signed by: Dr Mari Oliver MD on 01/07/2018 6:23 AM
[2018-01-07] MEDS: INSULIN LISPRO 100 UNIT/1 ML 3ML VIAL SQ SCH ×4 (07:30→22:14)
[2018-01-07] MEDS: FLUTICASONE PROPIONATE NASAL SPRAY NS SCH ×2 (09:00→20:47)
[2018-01-07] MEDS: SALINE 0.65% NAS SOLN 1 SPRAY BTL SCH ×2 (09:00→20:47)
[2018-01-07] MEDS ORDERED: PREDNISONE 20 MG TAB PO SCH ×2 (09:00)
[2018-01-07] MEDS: HEPARIN SOD (PORCINE) 5,000 UNIT/ML VIAL SC SCH ×2 (09:00→20:47)
--- NOTE | 2018-01-07 11:03 | Progress Note ---
DATE: January 07, 2018 CARDIOLOGY PROGRESS NOTE SUBJECTIVE: No major events. Now out of the ICU. REVIEW OF SYSTEMS: Could not be performed as the patient has altered mental status. OBJECTIVE VITAL SIGNS: Temperature 97, heart rate 103, respiratory rate 17, blood pressure 115/69, satting 95% on 3 L. GENERAL: Elderly white man in no acute distress. CARDIOVASCULAR: Tachy and regular. Has a 2/6 systolic murmur heard at the base, as well as the apex. PULMONARY: Lung are clear to auscultation bilaterally. ABDOMEN: Soft and nontender. No masses. NEURO/PSYCH: The patient is confused. Awake and oriented times zero. LABORATORY DATA: Reviewed. Notable for significant improvement in white count down to 8.9 now. Chemistry shows BUN of 147, creatinine of 2.9, sodium is 148. Chest x-ray shows mild pulmonary edema, but is significantly improved from prior. Telemetry reviewed and shows AFib with RVR. Heart rate in the 100-110. ASSESSMENT AND PLAN 1. Sepsis with multiorgan failure. 2. Acute hypoxic respiratory failure: Now extubated and out of the intensive care unit. 3. Atrial fibrillation with rapid ventricular response. 4. Xqy-BN-smlmmrn elevation myocardial infarction. 5. Acute kidney injury on chronic kidney disease. RECOMMENDATIONS: Continue current cardiac medications, including aspirin, Plavix and amiodarone. Started on metoprolol 25 mg q.6 h. yesterday for improved rate control. Will up-titrate for target heart rates in the 90s at rest if possible. Had a recent NSTEMI. However, give the patient is demented and A and O times zero, has BLANCHE on CKD, currently there are no plans for any ischemic evaluation or intervention. Continue to manage medically with aspirin and Plavix. Will have a discussion with the family at some point regarding the risks and benefits. However, this patient is not a candidate for invasive revascularization at this time. Will continue to follow. Thank you for this consult. Job#: [id number] CYRIL
[2018-01-07] MEDS: CLOPIDOGREL BISULFATE 75 MG TAB PO SCH (11:10)
[2018-01-07] MEDS: AMIODARONE HCL 200 MG TAB PO SCH (11:10)
[2018-01-07] MEDS: PANTOPRAZOLE SOD 40 MG TABEC PO SCH (11:10)
[2018-01-07] MEDS: ASPIRIN 81 MG CHEW TAB PO SCH (11:10)
--- NOTE | 2018-01-07 13:01 | Progress Note ---
DATE: January 07, 2018 PULMONARY MEDICINE PROGRESS NOTE SUBJECTIVE: Mr. Zavala was seen and examined at bedside. He continues to have slow progress. He is still altered. He is in bed. He tried to come out of bed and still had a sitter at bedside. Patient was also eating where he ate fair amount. He was coughing so speech re-evaluation was requested where he was assessed to be doing well on eating. REVIEW OF SYSTEMS: No bleeding. No rash. OBJECTIVE VITAL SIGNS: Afebrile. Vital signs noted per the chart record. GENERAL: No acute distress, alert, looks tired and weak in bed. HEENT: Normocephalic, atraumatic. NECK: Supple. Throat midline. LUNGS: Bilateral air entry, limited but few rhonchi. CARDIOVASCULAR: S1 and S2. No murmurs, rubs, or gallops. ABDOMEN: Soft, nontender. EXTREMITIES: No clubbing. No cyanosis. There is trace edema. INTEGUMENT: No rash. No purpura. LABORATORY DATA: Sodium 148, potassium 4.2, BUN 147, and creatinine 2.9. White count 9, hematocrit 32, and platelets 361. IMPRESSION AND PLAN 1. Encephalopathy vnsdn-iv-yjwvvev, underlying dementia. 2. Weakness. 3. Uqqlu-oz-ynpvogb kidney failure. 4. Shock, septic, as outlined. 5. Pneumonia. 6. Possible fluid overload. 7. Atrial fibrillation with rapid rate. Continue DVT prophylaxis. Mobilize the patient as tolerated. Prednisone is on today. We will wean again to lower dose 20 mg tomorrow. Continue antibiotics per infectious disease expert. We will follow along closely. Job#: [id number] MARKEL
[2018-01-07] MEDS: QUETIAPINE FUMARATE 25 MG TAB PO PRN ×2 (15:41→23:15)
--- NOTE | 2018-01-07 16:48 | Progress Note ---
DATE: January 07, 2018 SUBJECTIVE: Patient is doing well at baseline. He does get combative occasionally, requiring Seroquel. Cardiology recommends no left heart cath due to the underlying dementia and poor heart cath candidate. Patient also has underlying renal failure which can worsen his renal function. Plan is to discharge him to a [facility] facility once approved. OBJECTIVE VITAL SIGNS: Temperature is 96.7, pulse 92, respiratory rate is 22, his blood pressure is 142/92, pulse ox 96% on room air. LAB FINDINGS: Show a white count 8.9, hemoglobin is 10, hematocrit is 32, platelets of 371. CHEMISTRY: Sodium 148, potassium 4.2, chloride is 109, bicarb 21, anion gap of 22, BUN is 147, and his creatinine is 2.9. Magnesium is 2.4. MICROBIOLOGY: None. IMAGING STUDIES: Chest x-ray shows persistent though mildly improved edema. Trace effusions. PHYSICAL EXAMINATION GENERAL: Not in acute distress. Alert, oriented x1. HEENT: Head: Normocephalic, atraumatic. Eyes: Pupils equally round and reactive to light bilaterally. Extraocular movements intact bilaterally. Neck was supple with good range of motion. Throat: No evidence of any erythema or exudates in the posterior pharynx. Has poor dentition. PULMONARY: Clear to auscultation bilaterally. No wheezing, no rales, no rhonchi, no crackles appreciated. CARDIOVASCULAR: Positive S1/S2. No murmurs, rubs or gallops appreciated. ABDOMEN: Soft, nondistended, nontender to palpation. Bowel sounds present. MUSCULOSKELETAL: Strength is 5/5 throughout. No evidence of any musculoskeletal deficit on examination. NEUROLOGICAL: Patient is alert and oriented x1. He has dementia. Noncooperative. SKIN: Intact. Warm to touch. Good capillary refill. PSYCHIATRIC: Normal affect and mood. EXTREMITIES: No edema. Good range of motion throughout. IMPRESSION 1. Septic shock with multiorgan failure, now all resolved. 2. Acute hypoxemic respiratory failure, resolved. Extubated on January 04, 2018. 3. Atrial fibrillation with rapid ventricular response: Rate is controlled. He is on metoprolol and amiodarone as well as aspirin and Plavix. 4. Acute kidney injury on chronic kidney disease stage 3. His creatinine continues to rise, currently at 2.9. We are going to go ahead and just discontinue all antibiotics for now. Continue on D5W drip to see if there is any renal recovery. 5. Hypernatremia. I am going to increase the D5W to 100 mL per hour. 6. Ohh-PQ-crvrhkxkr myocardial infarction: According to Cardiology's note, no left heart cath at this time due to poor candidate. Will put on aspirin, Plavix and cardioprotective meds. 7. Elevated transaminases and acute pancreatitis, resolved. 8. Metabolic encephalopathy, resolved. 9. Alzheimer's dementia. 10. Prophylaxis will be heparin b.i.d. 11. Fluid, electrolytes, nutrients: Regular diet. 12. Disposition: Plan to discharge to a [facility] facility. He has been cleared by Cardiology and that there will be no heart cath due to his underlying medical state. Pulmonary Critical Care is following as well. Patient will likely be discharged later this week if his renal function improves, but currently his function has continued to deteriorate. Job#: [id number] KILEY
[2018-01-07] MEDS ORDERED: SODIUM BICARBONATE 650 MG TAB PO SCH (17:00)
[2018-01-07] MEDS: FLUCONAZOLE 100 MG TAB PO SCH (18:14)
[2018-01-07] MEDS: SODIUM BICARBONATE 650 MG TAB PO SCH (20:47)
[2018-01-07] MEDS: SIMETHICONE 80 MG CHEW PO PRN (23:15)
[2018-01-08] VITALS (9 sets, daily range): BP systolic 99–135; BP diastolic 56–86
[2018-01-08] MEDS: METOPROLOL TARTRATE 25 MG TAB PO SCH ×3 (00:50→12:42)
[2018-01-08] MEDS: DEXTROSE 5% 1,000 ML IV SCH ×3 (00:57→22:44)
[2018-01-08 07:16] LABS: ANION GAP 20.4 mmol/L (8-16); CALCIUM 8.5 mg/dL (8.4-10.2); CREATININE, SERUM 2.71 mg/dL (0.72-1.25); POTASSIUM 4.4 mmol/L (3.5-5.1)
[2018-01-08] MEDS: FLUTICASONE PROPIONATE NASAL SPRAY NS SCH ×2 (09:00→21:11)
[2018-01-08] MEDS ORDERED: PREDNISONE 20 MG TAB PO SCH (09:00)
[2018-01-08] MEDS: ASPIRIN 81 MG CHEW TAB PO SCH (09:39)
[2018-01-08] MEDS: SALINE 0.65% NAS SOLN 1 SPRAY BTL SCH ×2 (09:39→21:11)
[2018-01-08] MEDS: AMIODARONE HCL 200 MG TAB PO SCH (09:39)
[2018-01-08] MEDS: CLOPIDOGREL BISULFATE 75 MG TAB PO SCH (09:39)
[2018-01-08] MEDS: PREDNISONE 10 MG TAB PO SCH (09:39)
[2018-01-08] MEDS: SODIUM BICARBONATE 650 MG TAB PO SCH ×2 (09:39→21:11)
[2018-01-08] MEDS: PANTOPRAZOLE SOD 40 MG TABEC PO SCH (09:39)
[2018-01-08] MEDS: HEPARIN SOD (PORCINE) 5,000 UNIT/ML VIAL SC SCH ×2 (09:40→21:11)
[2018-01-08] MEDS: INSULIN LISPRO 100 UNIT/1 ML 3ML VIAL SQ SCH ×4 (09:41→21:11)
--- NOTE | 2018-01-08 09:51 | Progress Note ---
DATE: January 08, 2018 PULMONARY MEDICINE PROGRESS NOTE SUBJECTIVE: Mr. Zavala was seen and examined at bedside. He continues to have a lot of mental issues. He has a sitter in place; however, she states he is not climbing out of the bed as he was yesterday. He is drinking Ensure, but he is not eating too much as he takes a long time to masticate and he pockets the food. Patient with chest x-ray with mild improvement. REVIEW OF SYSTEMS: No bleeding. No rash. OBJECTIVE VITAL SIGNS: Afebrile. Vital signs noted per the chart record. GENERAL: No acute distress, alert and calm. He only answers simple questions. HEENT: Normocephalic, atraumatic. NECK: Supple. Throat midline. LUNGS: Bilateral air entry, few rare rhonchi. CARDIOVASCULAR: S1 and S2. No murmurs, rubs, or gallops. ABDOMEN: Soft, nontender. EXTREMITIES: No clubbing. No cyanosis. There is trace edema. INTEGUMENT: No rash. No purpura. LABORATORY DATA: Potassium 4.4, BUN 121, and creatinine 2.7. White count 9, hematocrit 32, and platelets 361,000. IMPRESSIONS 1. Bilateral pneumonia. 2. Possible fluid overload, unclear of the extent. 3. Possible steroid responsive pulmonary disease. 4. Encephalopathy, kwbfp-el-daldsri, with underlying dementia. 5. Atrial fibrillation and rapid rate. PLAN: Continue current treatment. Antibiotics will be continued per ID expert. PT if he improves. We are monitoring his eating, but so far there is no high aspiration evidence that we could see, although he does pocket the food. Continue to optimize nutrition as possible. Intermittent chest x-rays can be done to ensure the fluid overload improves. We will follow along closely. Job#: [id number]
--- NOTE | 2018-01-08 15:25 | Progress Note ---
DATE: January 08, 2018 CARDIOLOGY PROGRESS NOTE SUBJECTIVE: Patient history is limited by baseline dementia. He remains slightly more somnolent than baseline per family. OBJECTIVE VITAL SIGNS: Temperature 98.7 degrees, pulse 86, respiratory rate 18, blood pressure 131/80, oxygen saturation 96% on 3 liters nasal cannula. GENERAL: Elderly man in no acute distress, confused. LUNGS: Clear to auscultation bilaterally. No wheezes or crackles. CARDIOVASCULAR: Normal rate, regular rhythm. No murmur. Normal S1 and S2. ABDOMEN: Soft, nontender. EXTREMITIES: No edema. CARDIAC MEDICATIONS 1. Metoprolol tartrate 25 mg p.o. q.6 h. 2. Amiodarone 200 mg p.o. daily. 3. Plavix 75 mg p.o. daily. 4. Aspirin 81 mg p.o. daily. LABS: Sodium 145, potassium 4.4, chloride 107, CO2 22, BUN 141, creatinine 2.71. TELEMETRY: Atrial fibrillation. IMPRESSION 1. Sepsis with multiorgan failure. 2. Acute hypoxic respiratory failure, now extubated. 3. Atrial fibrillation with rapid ventricular response, currently rate controlled. 4. Nte-BI-cvdbqmakr myocardial infarction. 5. Acute kidney injury on chronic kidney disease. RECOMMENDATIONS: Extensive discussion was held with the patient's daughter and at bedside. Risks and benefits of cardiac catheterization were discussed with the patient. However, due to his poor functional status as well as chronic kidney disease, he is a poor candidate for invasive cardiac evaluation. Patient's and daughter agree with plan for conservative medical therapy in light of patient's lack of symptoms. Continue aspirin and Plavix. Titrate up beta blockade. Check lipid panel. Anticoagulation for CVA prophylaxis was also discussed with the patient's family. He was not previously on anticoagulation due to side effects although they are unsure what his side effects were and which medications he was previously on. However, given his current condition, they do not wish to proceed with anticoagulation. They understand that he is at increased risk of stroke in this setting. Monitor volume status. Thank you for this consult. We will continue to follow. Job#: [id number] EV
--- NOTE | 2018-01-08 16:21 | Progress Note ---
DATE: January 08, 2018 SUBJECTIVE: The patient is doing well. He still has a sitter at bedside. He is not as combative and requires Seroquel at night. He has no edema on examination. OBJECTIVE VITAL SIGNS: Temperature is 98.7, pulse 86, respiratory rate 18, oxygen is 96% on 1 L, blood pressure is 131/80. GENERAL: Not in acute distress. Alert and oriented times 2. Cooperative on exam. HEENT: Head is normocephalic and atraumatic. Eyes: Pupils equal, round and reactive to light bilaterally. Extraocular movements intact bilaterally. NECK: Supple. Good range of motion. Throat with no evidence of any erythema or exudates in the posterior pharynx. Has poor dentition. PULMONARY: Clear to auscultation bilaterally. No wheezing. No rales. No rhonchi. No crackles appreciated. CARDIOVASCULAR: Positive S1 and S2. No murmurs, rubs or gallops appreciated. ABDOMEN: Soft, nondistended and nontender to palpation. Bowel sounds present. MUSCULOSKELETAL: Strength is 5/5 throughout. No evidence of any muscle deficit on examination. No weakness appreciated. NEUROLOGICAL: Cranial nerves II-XII are grossly intact. No evidence of any neurological deficits on exam. SKIN: Intact. Warm to touch. Good cap refill. PSYCHIATRIC: He has baseline dementia. EXTREMITIES: No edema. Good range of motion throughout. LAB FINDINGS: Show white count is 8.9, hemoglobin 10.3, hematocrit 32, and platelets of 371,000. Chemistry: Sodium 145, potassium 4.4, chloride 107, bicarb 22, anion gap of 20, BUN is 141, but down trended from 147. His creatinine is 2.71 down trending from 2.9. Glucose is 161. Calcium is 8.5. MICROBIOLOGY: None. IMAGING STUDIES: There is a chest x-ray performed on January 07, 2018, that showed some trace effusion. ASSESSMENT AND PLAN 1. Septic shock with multiorgan failure: Now all resolved. 2. Acute hypoxemic respiratory failure: Extubated on January 04, 2018, resolved. 3. Atrial fibrillation with rapid ventricular response: His rate is currently controlled. I discussed this with cardiology. The patient will be discharged on oral metoprolol, amiodarone, Plavix, and Xarelto. 4. Acute kidney injury on chronic kidney disease, stage 3: His creatinine is still elevated, but down trended to 2.7. His baseline is around 2 to 2.5. His BUN of 141 does not correlate with the creatinine. It seems like the steroids and the tube feeds played a big role, as well as his acute kidney injury. His BUN is 141 now and it down trended. Will continue with intravenous fluids for now, and monitor him closely. If his creatinine and BUN down trends, he just needs repeat labs in 1 week at his primary care's office. We are going to put a urine Hernandez for urine output measurements. 5. Hypernatremia: Sodium is 145 and much improved. Will continue with the same rate of D5W. 6. Lop-DR-safwzdv elevation myocardial infarction: I discussed this with cardiology. Due to the patient's poor overall status with dementia and poor candidate, they recommend only medical management. The patient will be discharged on cardioprotective meds, including Plavix and Xarelto, and hold aspirin. 7. Elevated transaminases and elevated lipase: All resolved. 8. Metabolic encephalopathy: At baseline. 9. Alzheimer dementia. 10. Prophylaxis with heparin. 11. Fluid, electrolytes, nutrients: It seems like he failed his swallow eval. A modified barium swallow has been ordered. 12. Disposition: Our overall plan is to discharge to a intermediate facility. He has been cleared by pulmonary and cardiology. Once his creatinine improves and the sitter is removed from bedside, the goal is to discharge to intermediate facility for further rehabilitation. Job#: [id number] CYRIL
[2018-01-08] MEDS: FLUCONAZOLE 100 MG TAB PO SCH (16:37)
--- NOTE | 2018-01-08 17:28 | Diagnostic Imaging Report ---
EXAMINATION: PA and lateral views of the chest. COMPARISON: AP chest 01/07/2018 CLINICAL HISTORY: SOB, altered mental status DISCUSSION: See impression. IMPRESSION: 1. Moderate to marked enlargement of the cardiac silhouette, with central pulmonary venous congestion and bilateral interstitial opacities extending from the ara consistent with interstitial pulmonary edema. Findings likely represent decompensated CHF. 2. No definite effusion. 3. Degenerative changes in the thoracic spine. [place] screws in the right humeral head. Signed by: Dr. Trevor Campos M.D. on 01/08/2018 5:25 PM
[2018-01-08] MEDS: METOPROLOL TARTRATE 50 MG TAB PO SCH (17:39)
[2018-01-08] MEDS: QUETIAPINE FUMARATE 25 MG TAB PO PRN (21:11)
[2018-01-08] MEDS: SIMETHICONE 80 MG CHEW PO PRN (21:11)
[2018-01-09] VITALS (8 sets, daily range): BP systolic 107–142; BP diastolic 38–78
[2018-01-09] MEDS: METOPROLOL TARTRATE 50 MG TAB PO SCH ×4 (00:50→17:27)
[2018-01-09] MEDS: ACETAMINOPHEN 325 MG/10 ML UDC PO PRN ×3 (03:30→17:27)
[2018-01-09 06:00] LABS: BASOPHILS % 0.1 % (0.0-1.0); HEMATOCRIT 32.9 % (38.2-49.6); HEMOGLOBIN 10.7 g/dL (14.0-18.0); LYMPHOCYTES # (AUTO) 0.8 (1.0-3.2); LYMPHOCYTES % 5.4 % (18.0-39.1); MEAN CORPUSCULAR HEMOGLOBIN 28.5 pg (28-32); MEAN CORPUSCULAR HGB CONC 32.5 g/dL (31-35); MEAN CORPUSCULAR VOLUME 87.7 fL (81-99); MONOCYTES # (AUTO) 0.8 (0.2-0.8); MONOCYTES % 5.4 % (4.4-11.3); NEUTROPHILS # (AUTO) 13.1 (2.1-6.9); PLATELET COUNT 398 x10e3/uL (140-360); RED BLOOD COUNT 3.75 x10e6/uL (4.3-5.7); RED CELL DISTRIBUTION WIDTH 16.5 % (11.7-14.4)
[2018-01-09 06:36] LABS: ANION GAP 19.5 mmol/L (8-16); CALCIUM 8.6 mg/dL (8.4-10.2); CREATININE, SERUM 2.65 mg/dL (0.72-1.25); POTASSIUM 4.5 mmol/L (3.5-5.1)
[2018-01-09 07:17] LABS: CHOL/HDL RATIO 6.6 (3.9-4.7)
[2018-01-09] MEDS: SALINE 0.65% NAS SOLN 1 SPRAY BTL SCH ×2 (09:14→23:00)
[2018-01-09] MEDS: HEPARIN SOD (PORCINE) 5,000 UNIT/ML VIAL SC SCH ×2 (09:14→21:00)
[2018-01-09] MEDS: PREDNISONE 10 MG TAB PO SCH (09:14)
[2018-01-09] MEDS: FLUTICASONE PROPIONATE NASAL SPRAY NS SCH ×2 (09:14→23:15)
[2018-01-09] MEDS: CLOPIDOGREL BISULFATE 75 MG TAB PO SCH (09:14)
[2018-01-09] MEDS: AMIODARONE HCL 200 MG TAB PO SCH (09:14)
[2018-01-09] MEDS: PANTOPRAZOLE SOD 40 MG TABEC PO SCH (09:14)
[2018-01-09] MEDS: ASPIRIN 81 MG CHEW TAB PO SCH (09:14)
[2018-01-09] MEDS: SODIUM BICARBONATE 650 MG TAB PO SCH ×2 (09:15→23:20)
[2018-01-09] MEDS: INSULIN LISPRO 100 UNIT/1 ML 3ML VIAL SQ SCH ×4 (09:16→21:00)
[2018-01-09] MEDS ORDERED: THIAMINE HCL INJ 100 MG/ML 2ML VIAL IV NR (12:30)
[2018-01-09 12:37] LABS: INR 1.53; PROTHROMBIN TIME 17.3 seconds (11.9-14.5)
--- NOTE | 2018-01-09 12:48 | Progress Note ---
DATE: January 09, 2018 PULMONARY MEDICINE PROGRESS NOTE SUBJECTIVE: Mr. Zavala was seen and examined at bedside. He continues to have hypersomnolence present. Patient has been without any psychiatric medicine since Friday since he last received Seroquel at that time. He is low on energy, not really pulling on devices nor trying to get up. He was awake transiently to try to eat, although he ate about 20%. REVIEW OF SYSTEMS: No diarrhea, no headache perceived by others. OBJECTIVE VITAL SIGNS: Afebrile. Vital signs noted per the chart record. GENERAL: No acute distress, but weak, pale, in bed. HEENT: Normocephalic, atraumatic. NECK: Supple. Throat midline. LUNGS: Bilateral air entry, rare rhonchi. CARDIOVASCULAR: S1, S2. No murmurs, rubs, or gallops. ABDOMEN: Soft, nontender. EXTREMITIES: No clubbing. No cyanosis. There is trace edema. INTEGUMENT: No rash. No purpura. IMPRESSIONS 1. Bilateral pneumonia. 2. Possible fluid overload, superimposed. 3. Ptiwl-tv-lokimmi kidney failure. 4. Encephalopathy, zthjd-ut-xatzgqs. 5. Additional atrial fibrillation, rapid rate but now controlled. PLAN: Continued on psychiatric medicines. Allow wakening. Ruled out sepsis all over again. Continue to wean the prednisone. Continue cardiac medicines per cardiology, of course. Will follow up closely. Job#: [id number] IRAIS
[2018-01-09] MEDS: CEFEPIME HCL 1 GM VIAL IV SCH (12:51)
[2018-01-09] MEDS: METRONIDAZOLE 500MG/NS 100ML 100 ML IV SCH ×2 (12:51→23:00)
--- NOTE | 2018-01-09 13:32 | Progress Note ---
DATE: January 09, 2018 ADDENDUM: Son called, his name is Garth ZavalaJr., and he agreed to hemodialysis. Will get a temporary dialysis catheter. Perform a hemodialysis treatment today. Blood flow rate of 200, dialysis flow rate is 400 mL per minute. Do a 3k bath, 2.5 calcium, ultrafiltration 1 liter, and we will try to do a 2-hour treatment with Mannitol before and during treatment. Will repeat hemodialysis tomorrow as well. Once again, the son agreed to hemodialysis. Catheter will be placed and dialysis will be initiated later in the day. Nursing staff present for witnessing. Job#: [id number] EV
--- NOTE | 2018-01-09 13:36 | Progress Note ---
DATE: January 09, 2018 SUBJECTIVE: The patient is arousable on examination. He is talkative but at his baseline. I called the son, Garth Zavala Jr., about possibly getting a few treatments of hemodialysis for his father. At this time, he wants to think about it. OBJECTIVE VITAL SIGNS: Temperature is 98, pulse 91, respiratory rate 24, blood pressure 107/56. Pulse ox is 96% on 3 L nasal cannula. MICROBIOLOGY: None. IMAGING STUDIES: Chest x-ray shows pulmonary congestion. PHYSICAL EXAMINATION GENERAL: He is awake and alert. He is oriented times 1. That is his baseline. HEENT: Head is normocephalic and atraumatic. Eyes: Pupils are equal and reactive to light bilaterally. Extraocular movements intact bilaterally. NECK: Supple. Good range of motion. Throat with no evidence of any erythema or exudates in the posterior pharynx, has poor dentition. PULMONARY: Clear to auscultation bilaterally. No wheezing. No rales. No rhonchi. No crackles appreciated. CARDIOVASCULAR: Positive S1 and S2. No murmurs, rubs or gallops appreciated. ABDOMEN: Soft, nondistended and nontender to palpation. Bowel sounds present. MUSCULOSKELETAL: Strength is 5/5 throughout. No evidence of any musculoskeletal deficit on examination. No weakness appreciated. NEUROLOGICAL: Cranial nerves II through XII are grossly intact. No evidence of any neurological deficits on exam. SKIN: Intact. Warm to touch. Good cap refill. PSYCHIATRIC: Normal affect and mood. EXTREMITIES: No edema. Good range of motion throughout. ASSESSMENT AND PLAN 1. Septic shock with multiorgan failure, resolved. 2. Acute hypoxemic respiratory failure, extubated on January 04, 2018, resolved. 3. Atrial fibrillation with rapid ventricular response. Rate is controlled. Cardiology following. On metoprolol, amiodarone, Plavix, and Xarelto. 4. Acute kidney injury on chronic kidney disease, stage 3. His creatinine is at his baseline at 2.65. His BUN did downtrend to 130. I feel like his BUN will eventually come down, but it usually lags before it truly comes back down to his normal. He is doing great; but due to the fact that he is somewhat lethargic, I offered hemodialysis to the family. They are currently making the decision. Once they make their decision, if they want dialysis, will have IR place a temporary dialysis catheter and initiate a couple of treatments of dialysis. This patient does not need long-term dialysis, just likely to be all acute with 1 or 2 treatments to help with downtrending the BUN. 5. Hypernatremia, resolved. 6. Onn-XM-cqdlqpb elevation myocardial infarction. At this time, per cardiology, they do not feel like the patient is a good cardiac candidate for a heart cath. They just recommend cardioprotective meds at this time. 7. Elevated transaminases and lipase, all resolved. 8. Metabolic encephalopathy, at baseline. 9. Alzheimer dementia. 10. Prophylaxis with heparin. 11. Fluid, electrolytes, nutrients: Today he is going to get a modified barium swallow for concerns of aspiration. 12. Disposition: His overall condition is very poor. He has multiple comorbidities. I spoke with the son, Garth Zavala Jr., and I offered hospice care if he is interested and also offered hemodialysis as a temporary measure. At this time, he wants to discuss the overall plan of care with his family. He will also let me know within the next hour about hemodialysis and if he needs a dialysis tunneled catheter and initiate a few treatments of hemodialysis. Otherwise, we will continue to do the same plan of care. Job#: [id number] KEN
[2018-01-09] MEDS ORDERED: FENTANYL CITRATE/PF 100MCG/2 ML INJ ONE (14:52)
[2018-01-09] MEDS ORDERED: MIDAZOLAM HCL 2 MG/2 ML VIAL ONE (14:52)
[2018-01-09] MEDS ORDERED: HEPARIN SOD (PORCINE) 1000 UNIT/ML 30ML ONE (14:56)
[2018-01-09] MEDS ORDERED: SODIUM CHLORIDE 0.9% 250ML 250 ML ONE (14:56)
[2018-01-09] MEDS: FLUCONAZOLE 100 MG TAB PO SCH (17:27)
--- NOTE | 2018-01-09 18:53 | Progress Note ---
DATE: January 09, 2018 CARDIOLOGY PROGRESS NOTE SUBJECTIVE: No major events overnight. REVIEW OF SYSTEMS: Could not be completed as patient has dementia. OBJECTIVE VITAL SIGNS: Temperature 98.0, pulse 78, blood pressure 142/66, satting 97% on nasal cannula. GENERAL: Elderly white man in no acute distress. CARDIOVASCULAR: Irregular rate and rhythm. Normal S1 and S2. There are 3/6 holosystolic murmurs both at the base and the apex. RESPIRATORY: Clear to auscultation bilaterally. No respiratory distress. ABDOMEN: Soft, nontender, nondistended. No masses. NEURO AND PSYCH: Patient is alert and oriented x0. Has normal affect. CARDIOVASCULAR MEDICATIONS: Reviewed. LABORATORY DATA: Reviewed. Notable for increase in white count to 15 today. Hemoglobin is stable at 10.9. Creatinine 2.65, which has been stable. IMAGING DATA: Reviewed. TELEMETRY DATA: Reviewed. Shows atrial fibrillation with PVCs and rate controlled. ASSESSMENT 1. Sepsis with multiorgan failure. 2. Acute hypoxic respiratory failure requiring intubation, now extubated. 3. Atrial fibrillation with rapid ventricular response, currently rate controlled. 4. Dir-NH-duettpqhs myocardial infarction. 5. Acute systolic and diastolic heart failure. 6. Acute kidney injury on chronic kidney disease. RECOMMENDATIONS: Dr. Tavarez had a long discussion with patient's family regarding options for ischemic workup given patient's advanced dementia and poor kidney function. A decision was made to treat his oua-BR-mkrncnxyv MT medically. No further ischemic workup is planned at this time. Patient is doing well on aspirin and Plavix, and we will continue these medications. As far as his AFib anticoagulation given the risk of bleeding associated with triple therapy and his advanced dementia with limited benefit of stroke prevention given his poor quality of life, decision was made along with the family to not pursue any anticoagulation at this time and just treat him with dual antiplatelet therapy. Thank you for this consult. Will continue to follow. Job#: [id number] KILEY
[2018-01-09] MEDS ORDERED: HEPARIN SOD (PORCINE) 5,000 UNIT/ML VIAL SC ONE (19:00)
[2018-01-09] MEDS ORDERED: HEPARIN SOD (PORCINE) 1000 UNIT/ML SDV IV PRN (19:30)
[2018-01-09] MEDS ORDERED: MANNITOL 25% 12.5GM/50 ML VIAL IV PRN (19:30)
[2018-01-09] MEDS: QUETIAPINE FUMARATE 25 MG TAB PO PRN (23:14)
[2018-01-10] VITALS (8 sets, daily range): BP systolic 107–137; BP diastolic 63–90
[2018-01-10] MEDS: METOPROLOL TARTRATE 50 MG TAB PO SCH ×4 (00:52→17:41)
[2018-01-10] MEDS: METRONIDAZOLE 500MG/NS 100ML 100 ML IV SCH ×3 (03:59→20:00)
[2018-01-10 05:59] LABS: BASOPHILS % 0.1 % (0.0-1.0); EOSINOPHILS # (AUTO) 0.1 (0.0-0.4); EOSINOPHILS % 0.5 % (0.0-6.0); HEMATOCRIT 34.5 % (38.2-49.6); HEMOGLOBIN 11.2 g/dL (14.0-18.0); LYMPHOCYTES # (AUTO) 0.8 (1.0-3.2); LYMPHOCYTES % 5.8 % (18.0-39.1); MEAN CORPUSCULAR HEMOGLOBIN 28.7 pg (28-32); MEAN CORPUSCULAR HGB CONC 32.5 g/dL (31-35); MEAN CORPUSCULAR VOLUME 88.5 fL (81-99); MONOCYTES # (AUTO) 0.8 (0.2-0.8); MONOCYTES % 5.6 % (4.4-11.3); NEUTROPHILS # (AUTO) 11.9 (2.1-6.9); NEUTROPHILS % 86.5 % (38.7-80.0); PLATELET COUNT 409 x10e3/uL (140-360); RED CELL DISTRIBUTION WIDTH 17.5 % (11.7-14.4)
[2018-01-10 06:16] LABS: ALBUMIN 2.4 g/dL (3.5-5.0); ALBUMIN/GLOBULIN RATIO 0.6 (0.8-2.0); ANION GAP 22.6 mmol/L (8-16); CALCIUM 8.7 mg/dL (8.4-10.2); CREATININE, SERUM 2.28 mg/dL (0.72-1.25); MAGNESIUM 2.2 MG/DL (1.3-2.1); POTASSIUM 4.6 mmol/L (3.5-5.1)
[2018-01-10] MEDS: ACETAMINOPHEN 325 MG/10 ML UDC PO PRN (06:34)
[2018-01-10] MEDS: INSULIN LISPRO 100 UNIT/1 ML 3ML VIAL SQ SCH ×4 (07:30→21:15)
[2018-01-10 07:53] LABS: BAND NEUTROPHILS % (MANUAL) 1 %; LYMPHOCYTES % (MANUAL) 7 % (19-48); MONOCYTES % (MANUAL) 4 % (3.4-9.0); NEUTROPHILS % (MANUAL) 88 % (40-74); NUCLEATED RED BLOOD CELLS 4
[2018-01-10 07:54] LABS: PLATELET MORPHOLOGY COMMENT FEW LARGE
[2018-01-10 07:55] LABS: PLATELET ESTIMATE MODERATELY INCREASED; RBC MORPHOLOGY COMMENT ABNORMAL
[2018-01-10 07:56] LABS: ANISOCYTOSIS MODERATE; POIKILOCYTOSIS SLIGHT; POLYCHROMASIA FEW
[2018-01-10] MEDS: PREDNISONE 10 MG TAB PO SCH (09:04)
[2018-01-10] MEDS: PANTOPRAZOLE SOD 40 MG TABEC PO SCH (09:04)
[2018-01-10] MEDS: CEFEPIME HCL 1 GM VIAL IV SCH (09:04)
[2018-01-10] MEDS: ASPIRIN 81 MG CHEW TAB PO SCH (09:04)
[2018-01-10] MEDS: CLOPIDOGREL BISULFATE 75 MG TAB PO SCH (09:04)
[2018-01-10] MEDS: SODIUM BICARBONATE 650 MG TAB PO SCH ×2 (09:04→21:33)
[2018-01-10] MEDS: AMIODARONE HCL 200 MG TAB PO SCH (09:04)
[2018-01-10] MEDS: SALINE 0.65% NAS SOLN 1 SPRAY BTL SCH ×2 (09:30→21:33)
[2018-01-10] MEDS: FLUTICASONE PROPIONATE NASAL SPRAY NS SCH ×2 (09:30→21:33)
[2018-01-10] MEDS: HEPARIN SOD (PORCINE) 5,000 UNIT/ML VIAL SC SCH ×2 (10:23→21:00)
[2018-01-10] MEDS: QUETIAPINE FUMARATE 25 MG TAB PO PRN ×2 (10:55→21:33)
--- NOTE | 2018-01-10 11:10 | Progress Note ---
DATE: January 10, 2018 SUBJECTIVE: The patient is still at baseline. He does respond. He wakes up. He is arousable. He did receive hemodialysis yesterday, his 1st treatment. He is scheduled for hemodialysis #2 later today. Still making good urine output. No overnight events. OBJECTIVE VITAL SIGNS: Temperature is 96.9, pulse 59, respiratory rate 20, blood pressure 127/74, pulse ox 93%. He is on nasal cannula. LAB FINDINGS: White count 13.8, hemoglobin 11.2, hematocrit 35, platelets 409. Chemistry: Sodium 145, potassium 4.6, chloride 106, bicarb 21, anion gap 22, BUN 100, creatinine 2.2, glucose 126, magnesium 2.2, AST 175, ALT 237, albumin 2.4. MICROBIOLOGY: None. IMAGING STUDIES: None. PHYSICAL EXAMINATION GENERAL: Not in acute distress. Awake and alert x2. Cooperative on examination. He is arousable. HEENT: Head is normocephalic and atraumatic. Eyes: Pupils are equal and reactive to light bilaterally. Extraocular movements intact bilaterally. NECK: Supple. Good range of motion. Throat with no evidence of any erythema or exudates in the posterior pharynx, has poor dentition. PULMONARY: Clear to auscultation bilaterally. No wheezing. No rales. No rhonchi. No crackles appreciated. CARDIOVASCULAR: Positive S1 and S2. No murmurs, rubs or gallops appreciated. ABDOMEN: Soft, nondistended and nontender to palpation. Bowel sounds present. MUSCULOSKELETAL: Strength is 5/5 throughout. No evidence of any muscle deficit on examination. No weakness appreciated. NEUROLOGICAL: Cranial nerves II through XII are grossly intact. No evidence of any neurological deficits on exam. SKIN: Intact. Warm to touch. Good cap refill. PSYCHIATRIC: He has baseline dementia. ASSESSMENT AND PLAN 1. Septic shock with multiorgan failure, resolved. 2. Acute hypoxemic respiratory failure, extubated on January 04, 2018, resolved. 3. Atrial fibrillation with rapid ventricular response. Rate is controlled. Cardiology following. Recommended metoprolol, amiodarone, Plavix, and Xarelto. 4. Acute kidney injury on chronic kidney disease, stage 3. The patient had his 1st treatment on dialysis. His temporary dialysis catheter is on the right IJ. It seems he will just need a couple of treatments in order for us to get the BUN down. He is making good urine output. He will get hemodialysis #2 today with mannitol pre and during dialysis treatment. 5. Hypernatremia, resolved. 6. Pjs-AR-lvvhxnb elevation myocardial infarction. Per cardiology, medical management at this time and cardioprotective meds. 7. Elevated transaminases and lipase. The LFT is slightly elevated. Will get repeat in the morning. 8. Metabolic encephalopathy at baseline. 9. Alzheimer dementia. 10. Prophylaxis with heparin. 11. Fluid, electrolytes, nutrients: We are going to add Megace to stimulate his appetite. He is getting a modified barium swallow for concerns of aspiration. 12. Disposition: His overall condition is very poor. I discussed with the son many times in the past related to his multiple comorbidities, and he seems to have agreed, but his family is reluctant about putting him on hospice at this time. We are waiting for snf facility placement, hopefully early next week, then we will discharge. Job#: [id number]
--- NOTE | 2018-01-10 11:58 | Diagnostic Imaging Report ---
EXAMINATION: CHEST 2 VIEWS 01/10/2018 11:40 AM COMPARISON: 01/08/2018 INDICATION: Rule out aspiration pneumonia DISCUSSION: LINES: Right internal jugular central venous catheter has a tip at the cavoatrial junction. LUNGS: Diffuse interstitial and airspace opacities, appearing similar to the prior examination.. PLEURA: No pleural effusion or pneumothorax. HEART AND MEDIASTINUM: Cardiomegaly and post-CABG changes. Median sternotomy wires are intact. There is atherosclerosis of the thoracic aorta. BONES AND SOFT TISSUES: Degenerative changes of the thoracic spine. The soft tissues are normal. IMPRESSION: Cardiomegaly with interstitial and airspace edema. No new consolidation since 01/08/2018. Michael Starkey MD Signed by: Dr. Michael Starkey M.D. on 01/10/2018 11:54 AM
[2018-01-10] MEDS ORDERED: MANNITOL 25% 12.5GM/50 ML VIAL IV PRN (15:00)
[2018-01-10] MEDS ORDERED: SODIUM CHLORIDE 0.9% 1000ML 2,000 ML IV PRN (15:00)
--- NOTE | 2018-01-10 15:19 | Progress Note ---
DATE: January 10, 2018 PULMONARY MEDICINE PROGRESS NOTE SUBJECTIVE: Mr. Zavala was seen and examined at bedside. He continues on IV fluids at 100 mL per hour. Hemodialysis was done yesterday with 750 mL output. The patient is more awake, and uremia has improved. The patient ate small amounts once again. He is alert and oriented x1. On 2 L per minute with 95% oxygen saturation. REVIEW OF SYSTEMS: Cannot get reliably as he is altered. OBJECTIVE VITAL SIGNS: Afebrile. Vital signs noted per the electronic record. GENERAL: No acute distress, alert and calm. HEENT: Normocephalic, atraumatic. NECK: Supple. Throat midline. LUNGS: Bilateral air entry, decreased effort, rare rhonchi. CARDIOVASCULAR: S1, S2. No murmurs, rubs, or gallops. ABDOMEN: Soft, nontender. EXTREMITIES: No clubbing. No cyanosis. There is trace edema. INTEGUMENT: No rash. No purpura. IMPRESSION 1. Encephalopathy, uremic plus/minus other. 2. Underlying dementia. 3. Pneumonitis. 4. Possible fluid overload, mostly much improved. 5. Yfjcs-wm-txmqjme kidney failure. PLAN: IV fluids per renal. Continue to clear metabolic products as possible with dialysis. Hernandez is in place, and we are following urine output which is still preserved for now. Consideration to increase food intake by [place] is being made. Follow up closely. He is in frail and guarded condition. Job#: [id number]
--- NOTE | 2018-01-10 16:45 | Progress Note ---
DATE: January 10, 2018 CARDIOLOGY PROGRESS NOTE SUBJECTIVE: History is limited by patient's baseline dementia. OBJECTIVE VITAL SIGNS: Temperature 97.5 degrees, pulse 95, respiratory rate 20, blood pressure 114/65. Oxygen saturation is 95% on 3 liters nasal cannula. GENERAL: Elderly man in no acute distress. LUNGS: Clear to auscultation bilaterally. No wheezes or crackles. CARDIOVASCULAR: Normal rate, regular rhythm. No murmur. Normal S1 and S2. ABDOMEN: Soft, nontender. EXTREMITIES: No edema. CARDIAC MEDICATIONS 1. Metoprolol tartrate 50 mg p.o. q.6 h. 2. Amiodarone 200 mg p.o. daily. 3. Plavix 75 mg p.o. daily. 4. Aspirin 81 mg p.o. daily. LABS: WBC 13.81, hemoglobin 11.2, hematocrit 34.5, platelets 409. Sodium 145, potassium 4.6, chloride 106, CO2 21, BUN 100, creatinine 2.28. AST 175, ALT 237. TELEMETRY: Atrial fibrillation. IMPRESSION 1. Sepsis with multiorgan failure. 2. Acute hypoxic respiratory failure requiring intubation, now extubated. 3. Atrial fibrillation with rapid ventricular response, currently rate controlled. 4. Tfg-NC-sfprflpta myocardial infarction. 5. Acute systolic and diastolic heart failure. 6. Acute kidney injury on chronic kidney disease. RECOMMENDATIONS: Long discussion was held with the patient's and daughter regarding his options for ischemic evaluation given his dementia as well as chronic kidney disease. The decision was made for conservative medical therapy with aspirin and Plavix. Given his poor functional status and risk of bleeding, anticoagulation for atrial fibrillation was also discussed with the patient's and daughter, with decision to not pursue anticoagulation at this time. Given elevated LFTs, we will discontinue amiodarone. Continue monitoring on telemetry. Thank you for this consult. We will continue to follow. Job#: [id number]
[2018-01-10] MEDS: FLUCONAZOLE 100 MG TAB PO SCH (17:00)
[2018-01-11] VITALS (9 sets, daily range): BP systolic 98–148; BP diastolic 64–84
[2018-01-11] MEDS: METOPROLOL TARTRATE 50 MG TAB PO SCH ×4 (00:11→17:10)
[2018-01-11] MEDS: METRONIDAZOLE 500MG/NS 100ML 100 ML IV SCH ×3 (04:13→20:00)
[2018-01-11 06:23] LABS: ANION GAP 21.5 mmol/L (8-16); CALCIUM 8.9 mg/dL (8.4-10.2); CREATININE, SERUM 2.3 mg/dL (0.72-1.25); POTASSIUM 4.5 mmol/L (3.5-5.1)
[2018-01-11] MEDS: INSULIN LISPRO 100 UNIT/1 ML 3ML VIAL SQ SCH ×4 (07:30→21:00)
[2018-01-11] MEDS: CLOPIDOGREL BISULFATE 75 MG TAB PO SCH (08:19)
[2018-01-11] MEDS: SALINE 0.65% NAS SOLN 1 SPRAY BTL SCH ×2 (08:19→21:45)
[2018-01-11] MEDS: PREDNISONE 10 MG TAB PO SCH (08:19)
[2018-01-11] MEDS: FLUTICASONE PROPIONATE NASAL SPRAY NS SCH ×2 (08:19→21:45)
[2018-01-11] MEDS: CEFEPIME HCL 1 GM VIAL IV SCH (08:19)
[2018-01-11] MEDS: SODIUM BICARBONATE 650 MG TAB PO SCH ×2 (08:19→21:45)
[2018-01-11] MEDS: ASPIRIN 81 MG CHEW TAB PO SCH (08:19)
[2018-01-11] MEDS: PANTOPRAZOLE SOD 40 MG TABEC PO SCH (08:19)
[2018-01-11] MEDS: HEPARIN SOD (PORCINE) 5,000 UNIT/ML VIAL SC SCH ×2 (09:00→21:46)
[2018-01-11] MEDS: MEGACE 400MG/ 10ML CUP PO SCH (09:32)
[2018-01-11] MEDS ORDERED: LACTULOSE SYRUP 20 GM/30 ML UDC PO NR (12:00)
[2018-01-11] MEDS ORDERED: DOCUSATE SODIUM 100 MG CAP PO NR (12:00)
--- NOTE | 2018-01-11 13:02 | Progress Note ---
DATE: January 11, 2018 SUBJECTIVE: The patient is very agitated during examination. He did not get any sleep overnight. Patient is at his baseline. He did receive hemodialysis #2 yesterday. Making good urine output. Will remove the Hernandez. There is some concern for constipation for which stool softeners have been ordered. OBJECTIVE VITAL SIGNS: Temperature is 97.6, pulse 103, respiratory rate 20, blood pressure 148/72, pulse ox 94% on 3 L nasal cannula. LAB FINDINGS: White count 13.8, hemoglobin 11.2, hematocrit 35, platelets 409. Chemistry: Sodium 146, potassium 4.5, chloride 105, bicarb 24, anion gap 21, BUN 79, creatinine 2.3, glucose 138. MICROBIOLOGY: None. IMAGING STUDIES: None. PHYSICAL EXAMINATION GENERAL: Not in acute distress. Awake and alert x1, at his baseline. HEENT: Head is normocephalic and atraumatic. Eyes: Pupils are equal and reactive to light bilaterally. Extraocular movements intact bilaterally. NECK: Supple. Good range of motion. Throat with no evidence of any erythema or exudates in the posterior pharynx, has poor dentition. PULMONARY: Clear to auscultation bilaterally. No wheezing. No rales. No rhonchi. No crackles appreciated. CARDIOVASCULAR: Positive S1 and S2. No murmurs, rubs or gallops appreciated. ABDOMEN: Soft, nondistended and nontender to palpation. Bowel sounds present. MUSCULOSKELETAL: Unable to assess. Patient has dementia. NEUROLOGICAL: Unable to assess. Patient has underlying dementia. SKIN: Intact. Warm to touch. Good cap refill. PSYCHIATRIC: Baseline dementia. EXTREMITIES: No edema. Good range of motion throughout. ASSESSMENT AND PLAN 1. Septic shock with multiorgan failure, now resolved. 2. Acute hypoxemic respiratory failure, extubated on January 04, 2018, resolved. 3. Atrial fibrillation with rapid ventricular response. Rate is controlled. Cardiology following. Metoprolol, amiodarone, Plavix, and Xarelto. 4. Acute kidney injury on chronic kidney disease, stage 3. He received hemodialysis #2 yesterday. Will do HD treatment #3 tomorrow with pre and during dialysis using mannitol. Likely pull the catheter out tomorrow, and he is good to go to the intermediate facility. 5. Hypernatremia, resolved. 6. Bum-PL-pizrpjl-elevation myocardial infarction. Per cardiology, medical management. 7. Elevated transaminases and lipase. Resolved. 8. Metabolic encephalopathy at baseline. 9. Alzheimer dementia. 10. Prophylaxis with heparin. 11. Fluid, electrolytes, nutrients: Continue with Megace for decreased appetite stimulant. 12. Disposition: Overall condition is very poor. The patient likely would be beneficial on hospice care; but at this time, the family is not interested. Instead, the patient will be discharged to intermediate facility hopefully tomorrow if accepted. Job#: [id number]
--- NOTE | 2018-01-11 14:15 | Progress Note ---
DATE: January 11, 2018 PULMONARY MEDICINE PROGRESS NOTE SUBJECTIVE: Mr. Zavala was seen and examined at bedside. He remains very weak. He will sometimes respond by 1 or 2 or sometimes 3-word phrases. For the most part, he grunts. He is not eating very much. He is on 3 L per minute via nasal cannula. REVIEW OF SYSTEMS: Cannot get reliably as he is altered. OBJECTIVE VITAL SIGNS: Afebrile. Vital signs noted per the electronic record. GENERAL: No acute distress, alert and calm. He intermittently will grunt. HEENT: Normocephalic, atraumatic. NECK: Supple. Throat midline. LUNGS: Bilateral air entry, rare rhonchi. CARDIOVASCULAR: S1, S2. No murmurs, rubs, or gallops. ABDOMEN: Soft, nontender. EXTREMITIES: No clubbing. No cyanosis. There is trace edema. INTEGUMENT: No rash. No purpura. LABS: BUN 39, 2.3 creatinine, 4.5 potassium, 14 white count, 35 hematocrit, 409 platelets. IMPRESSION 1. Encephalopathy, multifactorial. Acute component partially contributed by the uremia. 2. Encephalopathy, chronic dementia, Alzheimer type. Possible superimposed Parkinson's. 3. Pneumonia. 4. Milder fluid overload component. 5. Atrial fibrillation with rapid rate transiently. 6. Acute respiratory failure, extubated long ago. 7. 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 PLAN: Continue prednisone 10 mg today and wean off. Patient did get better since starting the steroids. Continue bronchodilators. Will repeat a chest x-ray to check on progress since dialysis has been started. Continue dialysis per renal expert. Patient seems like he has had 2 episodes of dialysis. The Hernandez has been removed, so I do not know if that means that we are done with dialysis. Mentation has greatly improved on dialysis. Will follow along closely. Job#: [id number]
--- NOTE | 2018-01-11 15:09 | Progress Note ---
DATE: January 11, 2018 CARDIOLOGY PROGRESS NOTE SUBJECTIVE: Patient denies chest pain; however, history is limited by baseline dementia. OBJECTIVE VITAL SIGNS: Temperature 98.5 degrees, pulse 106, respiratory rate 20, blood pressure 144/64. Oxygen saturation is 97% on 3 liters nasal cannula. GENERAL: Elderly man in no acute distress. LUNGS: Clear to auscultation bilaterally. No wheezes or crackles. CARDIOVASCULAR: Irregularly irregular. Tachycardic. No murmur. Normal S1 and S2. ABDOMEN: Soft, nontender. EXTREMITIES: No edema. CARDIAC MEDICATIONS 1. Metoprolol tartrate 50 mg p.o. q.6 h. 2. Plavix 75 mg p.o. daily. 3. Aspirin 81 mg p.o. daily. LABS: WBC 13.81, hemoglobin 11.2, hematocrit 34.5, platelets 409. Sodium 146, potassium 4.5, chloride 105, CO2 24, BUN 79, creatinine 2.3. TELEMETRY: Atrial fibrillation. IMPRESSION 1. Sepsis with multiorgan failure. 2. Acute hypoxic respiratory failure requiring intubation, now extubated. 3. Atrial fibrillation with rapid ventricular response, currently borderline rate controlled. 4. Kfc-TD-mwlgtzhcd myocardial infarction. 5. Acute systolic and diastolic heart failure. 6. Acute kidney injury on chronic kidney disease. RECOMMENDATIONS: Long discussion was held with the patient's and daughter regarding his options for ischemic evaluation given his dementia as well as chronic kidney disease. The decision was made for conservative medical therapy with aspirin and Plavix. Given his poor functional status and risk of bleeding, anticoagulation for atrial fibrillation was also discussed with the patient's and daughter, with decision to not pursue anticoagulation at this time. Continue current cardiac medications. Monitor on telemetry. If his heart rate rises, we may need to add digoxin. Thank you for this consult. We will continue to follow. Job#: [id number]
[2018-01-11] MEDS: FLUCONAZOLE 100 MG TAB PO SCH (17:09)
[2018-01-12] VITALS (9 sets, daily range): BP systolic 111–138; BP diastolic 60–84
[2018-01-12] MEDS: QUETIAPINE FUMARATE 25 MG TAB PO PRN ×2 (00:30→16:12)
[2018-01-12] MEDS: METOPROLOL TARTRATE 50 MG TAB PO SCH ×4 (00:33→18:20)
[2018-01-12] MEDS: METRONIDAZOLE 500MG/NS 100ML 100 ML IV SCH ×3 (04:00→20:25)
[2018-01-12 05:29] LABS: BASOPHILS % 0.3 % (0.0-1.0); EOSINOPHILS % 0.4 % (0.0-6.0); HEMATOCRIT 32.3 % (38.2-49.6); LYMPHOCYTES % 9.5 % (18.0-39.1); MEAN CORPUSCULAR HEMOGLOBIN 27.9 pg (28-32); MEAN CORPUSCULAR VOLUME 90.2 fL (81-99); MONOCYTES % 9.6 % (4.4-11.3); NEUTROPHILS # (AUTO) 7.9 (2.1-6.9); NEUTROPHILS % 77.8 % (38.7-80.0); PLATELET COUNT 331 x10e3/uL (140-360); RED BLOOD COUNT 3.58 x10e6/uL (4.3-5.7); RED CELL DISTRIBUTION WIDTH 17.8 % (11.7-14.4)
[2018-01-12 06:06] LABS: ANION GAP 17.6 mmol/L (8-16); CALCIUM 8.8 mg/dL (8.4-10.2); CREATININE, SERUM 2.32 mg/dL (0.72-1.25); POTASSIUM 4.6 mmol/L (3.5-5.1)
--- NOTE | 2018-01-12 06:49 | Diagnostic Imaging Report ---
CHEST SINGLE (PORTABLE), 01/12/2018 5:00 AM Technique: CHEST SINGLE (PORTABLE) Comparison: 8.25.18. Clinical history: Congestive heart failure Findings: See Impression Impression: 1. Lines/Tubes: Stable right IJ central venous catheter over the SVC 2. Stable enlarged cardiomediastinal silhouette status post median sternotomy. 3. Persistent edema. 4. Retrocardiac opacity, likely atelectasis or consolidation, with possible underlying pleural fluid. Signed by: Dr Mari Oliver MD on 01/12/2018 6:46 AM
[2018-01-12 06:50] LABS: LYMPHOCYTES % (MANUAL) 13 % (19-48); MONOCYTES % (MANUAL) 5 % (3.4-9.0); NEUTROPHILS % (MANUAL) 82 % (40-74); NUCLEATED RED BLOOD CELLS 1
[2018-01-12 06:51] LABS: ANISOCYTOSIS MODERATE; HYPOCHROMASIA SLIGHT
[2018-01-12 06:52] LABS: PLATELET ESTIMATE ADEQUATE; PLATELET MORPHOLOGY COMMENT FEW LARGE; POIKILOCYTOSIS SLIGHT; POLYCHROMASIA FEW; RBC MORPHOLOGY COMMENT ABNORMAL
[2018-01-12] MEDS: PANTOPRAZOLE SOD 40 MG TABEC PO SCH (07:30)
[2018-01-12] MEDS: INSULIN LISPRO 100 UNIT/1 ML 3ML VIAL SQ SCH ×4 (07:30→21:00)
[2018-01-12] MEDS: MEGACE 400MG/ 10ML CUP PO SCH (09:00)
[2018-01-12] MEDS: CLOPIDOGREL BISULFATE 75 MG TAB PO SCH (09:00)
[2018-01-12] MEDS: ASPIRIN 81 MG CHEW TAB PO SCH (09:00)
[2018-01-12] MEDS: SODIUM BICARBONATE 650 MG TAB PO SCH ×2 (09:00→21:00)
--- NOTE | 2018-01-12 09:11 | Progress Note ---
DATE: January 12, 2018 SUBJECTIVE: The patient is doing well. He is at his baseline. Apparently, he was able out get up out of the bed yesterday and laid on his buttocks overnight. Unsure, if there was a bed alarm. Unsure, if anyone attended to the patient overnight by the nursing staff. I was notified and I now ordered a CT of his pelvis just to rule out a fracture. Otherwise, he is currently at his baseline. He is going to receive dialysis #3 today. Our plan is send him to a fpc facility. OBJECTIVE VITAL SIGNS: Temperature is 96.5, pulse is 115, respiratory rate is 24, blood pressure 115/71, pulse ox 98% on room air. LAB FINDINGS: White count of 10, hemoglobin 10, hematocrit 32, platelets of 331,000. Chemistry: Sodium 147, potassium 4.6, chloride 107, bicarb 27, anion gap of 17, BUN 82, creatinine is 2.3, glucose is 108. Chest x-ray this morning showed retrocardiac atelectasis. He does have some persistent edema. PHYSICAL EXAMINATION GENERAL: He is at his baseline. He has dementia. He is cooperative occasionally. He is arousable. HEENT: Head normocephalic, atraumatic. Eyes pupils equal and reactive to light bilaterally. Extraocular movements intact bilaterally. Throat: No evidence of any erythema or exudates in the posterior pharynx. Has poor dentition. NECK: Supple. Good range of motion. PULMONARY: Clear to auscultation bilaterally. No wheezing. No rales or rhonchi. No crackles appreciated. CARDIOVASCULAR: Positive S1, S2. No murmurs, rubs or gallops appreciated. ABDOMEN: Soft, nondistended, nontender to palpation. Bowel sounds present. MUSCULOSKELETAL: Unable to assess, the patient has dementia. NEUROLOGICAL: Unable to assess, has dementia. PSYCHIATRIC: Has baseline dementia. ASSESSMENT AND PLAN 1. Septic shock with multiorgan failure--resolved. 2. Acute hypoxemic respiratory failure, extubated on January 04, 2018, resolved. 3. Atrial fibrillation with rapid ventricular rate, rate controlled. Cardiology following. Metoprolol, amiodarone, Plavix and Xarelto. 4. Acute kidney injury on chronic kidney disease stage 3. He will receive hemodialysis #3 today. Will give pre and post mannitol and today we will do increase ultrafiltration to approximately 2 to 3 L and increase the time to 3 hours. Plan is to go to fpc facility. 5. Hypernatremia, resolved. 6. Non-ST elevation myocardial infarction. Per director digital catalogue, medical management. 7. Fall--will get computed tomography head and computed tomography pelvis just to rule out if any fractures or any bleeds. 8. Elevated transaminases and lipase, resolved. 9. Metabolic encephalopathy, at baseline. 10. Alzheimer dementia, at baseline. 11. Prophylaxis with heparin. 12. Fluids, electrolytes, nutrients--continue with Megace for decreased appetite and increase his appetite stimulant. DISPOSITION--Overall, condition is very poor. The patient was aware of hospice care in the past, but they are refusing at this time. They agreed to fpc facility. Our overall plan is to dialyze him today, remove the catheter tomorrow and transfer to fpc facility tomorrow. Job#: [id number] SHERRY
--- NOTE | 2018-01-12 09:41 | Diagnostic Imaging Report ---
PROCEDURE:CT PELVIS WITHOUT CONTRAST COMPARISON:None. INDICATIONS:FALL TECHNIQUE:CT images were created without intravenous contrast. FINDINGS: Pelvic viscera: Air within the nondependent portion of the urinary bladder likely relates to recent Hernandez catheter placement or other instrumentation. No bladder wall thickening. The prostate is mildly enlarged measuring 4.8 cm transversely with coarse central calcifications. Bowel: Innumerable sigmoid diverticula partially visualized, without evidence of diverticulitis. No dilatation of the partially visualized small bowel. Vasculature: Postsurgical changes of endovascular aortic aneurysm repair. Stent graft patency cannot be assessed in the absence of intravenous contrast. Soft tissues: Fat containing left inguinal hernia. Postsurgical changes related to right inguinal hernia repair. Otherwise no focal soft tissue abnormalities. Bones: No acute fractures. Degenerative changes of both hip joints. CONCLUSION: No acute fractures. Degenerative joint disease of the hips. Degenerative disc disease of the partially visualized lumbar spine. Atherosclerotic disease status post abdominal aortic aneurysm repair. Prostatomegaly. Large bowel diverticulosis without findings of diverticulitis. Dictated by: Yusuf Garcia M.D. on 01/12/2018 at 9:48 Electronically approved by: Yusuf Garcia M.D. on 01/12/2018 at 9:48
[2018-01-12] MEDS: CEFEPIME HCL 1 GM VIAL IV SCH (10:00)
[2018-01-12] MEDS: HEPARIN SOD (PORCINE) 5,000 UNIT/ML VIAL SC SCH ×2 (10:00→21:16)
--- NOTE | 2018-01-12 10:29 | Progress Note ---
DATE: January 12, 2018 PULMONARY MEDICINE PROGRESS NOTE SUBJECTIVE: Mr. Zavala was seen and examined at bedside. He continues with slow progress. Minimally more awake today. However, he does not eat much. Currently, his oxygen is off of him. Dialysis line in place. REVIEW OF SYSTEMS: No bleeding. No headaches reported by sitter in room. OBJECTIVE VITAL SIGNS: Afebrile. Vital signs noted per electronic record. GENERAL: In no acute distress. Alert and calm. HEENT: Normocephalic and atraumatic. NECK: Supple. Throat midline. LUNGS: Bilateral air entry. Reduced breath sounds. Reduced effort. CARDIOVASCULAR: S1 and S2. No murmurs, rubs or gallops. ABDOMEN: Soft and nontender. EXTREMITIES: No clubbing. No cyanosis. There is trace edema. INTEGUMENT: No rash. No purpura. LABS: Sodium 147, potassium 4.6, BUN 82, creatinine 2.3. White count 30, hematocrit 32. IMPRESSION AND PLAN 1. Encephalopathy, acute: Toxic metabolic encephalopathy predominately. 2. Dementia. 3. Doqst-bu-sgpyjgi kidney failure. 4. Pneumonia. 5. Small fluid overload component. 6. Atrial fibrillation with rapid ventricular rate. 7. Treatment with steroids for reactive respiratory condition, much improved. Continue to follow up off the prednisone now. The patient is on fluticasone nasal spray. Discussed with dialysis. They feel budesonide will be helpful. Continue other bronchodilators. Medicine for comfort to be continued. Renal replacement therapy has been considered by renal expert. Dialysis access still in place. Job#: [id number] CYRIL
--- NOTE | 2018-01-12 10:31 | Diagnostic Imaging Report ---
Examination: CT BRAIN WITHOUT CONTRAST History:Fall with head injury. Altered mental status. Confusion. Comparison studies:Head CT performed December 27, 2017 Technique: Axial images were obtained from the skull base to the vertex. Coronal and sagittal images reconstructed from the axial data. Dose modulation, iterative reconstruction, and/or weight based adjustment of the mA/kV was utilized to reduce the radiation dose to as low as reasonably achievable. Intravenous contrast: None Findings: Scalp: No abnormalities. Bones: Old bilateral parietal emerald holes. Brain sulci: Mildly prominent Ventricles: Moderate mild to moderate compensatory dilatation. No hydrocephalus. Extra-axial spaces: No masses, no fluid collection. Parenchyma: No mass, acute hemorrhage or large acute cortical vascular insults. Multiple chronic cortical and subcortical insults with encephalomalacia and/or gliosis (left orbitofrontal/frontal opercular, left superior temporal, left lateral occipital lobe, multifocal in the right superior and middle frontal lobes, along the perirolandic gyri, right superior and inferior parietal lobes and right occipital lobe). Some insults within the right frontal and right parietal lobes were acute on the brain MRI of 02/28/2011. Other chronic insult such as that in the right occipital lobe was not present on the previous CT MRI of 2010. Unchanged chronic lacunar insult in the bilateral subinsular white matter. Left subinsular insult was previously hemorrhagic as indicated on the previous MRI. Scattered ill-defined and confluent hypodensities throughout the supratentorial white matter are nonspecific but most compatible with chronic microvascular ischemic changes. Sellar/suprasellar region: No abnormalities. Craniocervical junction: Patent foramen magnum. No Chiari one malformation. Incidental findings: Atherosclerotic calcifications in the carotid siphons and intradural vertebral arteries. Bilateral intraocular lens replacements. Impression: No new intraparenchymal or extra-axial hemorrhage. Chronic findings: 1. Multiple chronic cortical and subcortical insults as described. 2. Moderate chronic microvascular ischemic changes with chronic bilateral subinsular lacunar insults. 3. Mild generalized volume loss. 4. 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 Signed by: Dr. Jocelyne Aldana M.D. on 01/12/2018 10:27 AM
[2018-01-12] MEDS ORDERED: ALBUMIN 25% 12.5GM 100 ML IV ONE (11:49)
[2018-01-12] MEDS: SALINE 0.65% NAS SOLN 1 SPRAY BTL SCH ×2 (12:04→21:00)
[2018-01-12] MEDS: FLUTICASONE PROPIONATE NASAL SPRAY NS SCH ×2 (12:04→21:06)
--- NOTE | 2018-01-12 12:31 | Progress Note ---
DATE: January 12, 2018 CARDIOLOGY PROGRESS NOTE SUBJECTIVE: No major events. Getting dialyzed today. REVIEW OF SYSTEMS: Could not be completed due to altered mental status. OBJECTIVE VITAL SIGNS: Temperature 96.5, pulse 115, respiratory rate 24, blood pressure 115/71, satting 98% on 3 L. GENERAL: Elderly white man in no acute distress. CARDIOVASCULAR: Irregular rhythm. Normal S1 and S2. There is a 3/6 holosystolic murmur at the apex. Palpable carotid pulses. Palpable radial pulses. There is 2+ lower extremity edema. RESPIRATORY: Lungs are clear to auscultation bilaterally. No respiratory distress. ABDOMEN: Soft, nontender. No masses. NEURO AND PSYCH: Patient is alert and oriented times zero. Somnolent and confused. MEDICATIONS: Reviewed. LABORATORY DATA: Reviewed. TELEMETRY DATA: Reviewed. Shows atrial fibrillation with RVR. ASSESSMENT 1. Sepsis with multiorgan failure. 2. Acute hypoxemic respiratory failure requiring intubation, now extubated. 3. Atrial fibrillation with rapid ventricular response. 4. Xwv-IA-ghgleuktv myocardial infarction. 5. Acute systolic and diastolic heart failure. 6. Doudx-ms-ucclkti kidney injury, now on dialysis. RECOMMENDATIONS: Currently on metoprolol 50 mg p.o. q.6 h. Rates are still in the 100 to 110 range. Will add digoxin to his regimen now that he is getting dialyzed. Continue aspirin and Plavix for his recent non-STEMI. Family discussion as noted in previous notes with decision to avoid anticoagulation for atrial fibrillation given high risk of bleeding with triple therapy and the patient's current dementia. Thank you for this consult. Will continue to follow. Job#: [id number]
[2018-01-12] MEDS ORDERED: MANNITOL 25% 12.5GM/50 ML VIAL IV PRN (13:30)
[2018-01-12] MEDS ORDERED: ALBUMIN 25% 12.5GM 50 ML IV PRN (13:30)
[2018-01-12] MEDS ORDERED: HEPARIN SOD (PORCINE) 1000 UNIT/ML SDV IV PRN (13:30)
--- NOTE | 2018-01-12 18:08 | Diagnostic Imaging Report ---
PROCEDURE:X-RAY MODIFIED BARIUM SWALLOW COMPARISON:None. INDICATIONS:Not provided. DISCUSSION:Fluoroscopic examination was performed in conjunction with speech pathology, during swallowing of a variety of thin and thick liquid consistencies. Fluoroscopy time: 1:51 sec Cumulative air kerma : 7.13 mGy CONCLUSION:Aspiration visualized. Please see the report from speech pathology for complete details. Dictated by: Spencer Aleman M.D. on 01/12/2018 at 18:14 Electronically approved by: Spencer Aleman M.D. on 01/12/2018 at 18:14
[2018-01-12] MEDS: FLUCONAZOLE 100 MG TAB PO SCH (18:20)
[2018-01-12] MEDS: ACETAMINOPHEN 325 MG/10 ML UDC PO PRN (22:30)
[2018-01-13] VITALS: BP_SYST 107; BP_DIAS 63; BP_DIAS 64
[2018-01-13] MEDS: METOPROLOL TARTRATE 50 MG TAB PO SCH ×3 (00:43→13:30)
[2018-01-13] MEDS: QUETIAPINE FUMARATE 25 MG TAB PO PRN (03:13)
[2018-01-13 04:00] VITALS: BP 114/73
[2018-01-13] MEDS: METRONIDAZOLE 500MG/NS 100ML 100 ML IV SCH ×2 (04:35→13:30)
[2018-01-13 06:05] LABS: CALCIUM 8.5 mg/dL (8.4-10.2); CREATININE, SERUM 1.72 mg/dL (0.72-1.25)
[2018-01-13 07:15] VITALS: BP 121/76
[2018-01-13] MEDS: INSULIN LISPRO 100 UNIT/1 ML 3ML VIAL SQ SCH ×3 (07:30→16:30)
[2018-01-13] MEDS: PANTOPRAZOLE SOD 40 MG TABEC PO SCH (07:30)
[2018-01-13] MEDS ORDERED: DIGOXIN 0.125 MG TAB PO SCH (09:00)
--- NOTE | 2018-01-13 09:20 | Progress Note ---
DATE: January 13, 2018 SUBJECTIVE: Patient is still requiring a sitting at bedside. He is not combative, but he does not cooperate according to the staff. His vital signs are stable. He did receive dialysis yesterday. OBJECTIVE VITALS: Temperature is 97.1, pulse 99, respiratory rate 18, blood pressure 121/76, pulse ox 97% on 2 L nasal cannula. GENERAL: Not in acute distress. Alert and oriented times 1. HEENT: Head is normocephalic and atraumatic. Eyes: Pupils equal, round and reactive to light bilaterally. Extraocular movements intact bilaterally. NECK: Supple. Good range of motion. Throat with no evidence of any erythema or exudates in the posterior pharynx. Has poor dentition. PULMONARY: Clear to auscultation bilaterally. No wheezing. No rales. No rhonchi. No crackles appreciated. CARDIOVASCULAR: Positive S1 and S2. No murmurs, rubs or gallops appreciated. ABDOMEN: Soft, nondistended and nontender to palpation. Bowel sounds present. MUSCULOSKELETAL: Unable to assess. The patient is demented. NEUROLOGICAL: Unable to assess. Has baseline dementia. SKIN: Intact. Warm to touch. Good cap refill. PSYCHIATRIC: Demented. EXTREMITIES: No edema. LABS FINDINGS: Show white count is 10, hemoglobin 10, hematocrit is 32, and platelets of 331,000. Chemistry: Sodium is 144, potassium 4, chloride 108, bicarb 23, anion gap of 17, BUN is 50, creatinine is 1.7. His calcium is 8.5. MICROBIOLOGY: None. IMAGING STUDIES: CT of pelvis shows no acute fracture. CT of brain shows multiple chronic cortical and subcortical insults as described. Moderate chronic microvascular ischemic changes with chronic bilateral subinsular lacunar insults. Nothing acute is shown. Modified barium swallow aspiration visualized. Please see the report from speech pathology for complete details. ASSESSMENT AND PLAN 1. Septic shock with multiorgan failure, resolved. 2. Acute hypoxemic respiratory failure: Extubated on January 04, 2018, resolved. 3. Atrial fibrillation with rapid ventricular response: Now, rate is controlled. Cardiology following. Metoprolol, amiodarone, Plavix, and Xarelto. 4. Acute kidney injury on chronic kidney disease, stage 3: Received hemodialysis yesterday. No dialysis today. Will get a.m. labs and evaluate for dialysis tomorrow. This is all acute findings and likely he will not need any long-term dialysis upon discharge. 5. Hypernatremia, resolved. 6. Ujt-PG-kxrvylr elevation myocardial infarction: Per cardiology. Workup and medical management. 7. Fall: Computerized tomography of brain negative. Computerized tomography of pelvis negative. 8. Elevated transaminases and lipase, resolved. 9. Metabolic encephalopathy secondary to Alzheimer dementia: At baseline. 10. Prophylaxis: With heparin. 11. Fluid, electrolytes and nutrients: His swallow evaluation showed aspiration. Will need to discuss this with the speech therapist to see which diet they recommend. 12. Disposition: Overall condition very poor in this patient's case. I discussed Hospice with the family, but at this time they are refusing it. The big plan is for the patient to be discharged to longterm, but will not need hemodialysis upon discharge. Will continue to follow. Job#: [id number] CYRIL
[2018-01-13] MEDS: FLUTICASONE PROPIONATE NASAL SPRAY NS SCH (10:25)
[2018-01-13] MEDS: CEFEPIME HCL 1 GM VIAL IV SCH (10:25)
[2018-01-13] MEDS: MEGACE 400MG/ 10ML CUP PO SCH (10:25)
[2018-01-13] MEDS: SODIUM BICARBONATE 650 MG TAB PO SCH (10:25)
[2018-01-13] MEDS: HEPARIN SOD (PORCINE) 5,000 UNIT/ML VIAL SC SCH (10:25)
[2018-01-13] MEDS: SALINE 0.65% NAS SOLN 1 SPRAY BTL SCH (10:25)
[2018-01-13] MEDS: CLOPIDOGREL BISULFATE 75 MG TAB PO SCH (10:25)
[2018-01-13] MEDS: ASPIRIN 81 MG CHEW TAB PO SCH (10:25)
[2018-01-13 11:46] VITALS: BP 120/60
--- NOTE | 2018-01-13 12:23 | Progress Note ---
DATE: January 13, 2018 PULMONARY MEDICINE PROGRESS NOTE SUBJECTIVE: Mr. Zavala was seen and examined at bedside. He continues to have weakness. Some encephalopathy. Occasionally he will phonate words and short phrases. He is basically completely dependent with care at this time. On 3 L per minute via nasal cannula. The patient is eating. REVIEW OF SYSTEMS: Cannot get reliably as he is altered. OBJECTIVE VITAL SIGNS: Afebrile. Vital signs noted per electronic record. GENERAL: In no acute distress. Alert and calm. He can be aroused with moderate stimuli. HEENT: Normocephalic and atraumatic. NECK: Supple. Throat midline. LUNGS: Bilateral air entry, a few rare rhonchi. CARDIOVASCULAR: S1 and S2. No murmurs, rubs or gallops. ABDOMEN: Soft and nontender. EXTREMITIES: No clubbing. No cyanosis. There is trace edema. INTEGUMENT: No rash. No purpura. LABS: BUN 50, 0.7 creatinine, 10 white count, 32 hematocrit, 331 platelets. INR is 1.5. LFTs include AST 125 and ALT 237. IMPRESSION AND PLAN 1. Encephalopathy, acute on chronic. 2. Acute kidney failure on chronic. 3. Pneumonia. 4. Fluid overload, atrial fibrillation with rapid ventricular response. 5. Anorexia, improved. Continue to follow up closely at this time. Steroids are off. Will continue other bronchodilators. He will resume budesonide inhaled. For now, follow up as is. He is on antibiotics including cefepime and Flagyl. Continue nasal steroids. Will follow along closely. Job#: [id number]
[2018-01-13 15:54] VITALS: BP 130/76
--- NOTE | 2018-01-14 11:33 | Diagnostic Imaging Report ---
Procedure: Right internal jugular non-tunneled hemodialysis catheter placement with fluoroscopic guidance mixing tumbler operator: Dr. Christine Lamb Pre-operative diagnosis: Requiring HD access. Post-operative diagnosis: Status post HD access placement Conscious Sedation: None The patient's heart rate and pulse oximetry were continuously monitored by the labeling specialist nurse. Additional Medications: Lidocaine 1% for local anesthesia Fluoroscopy time: 0.2 minutes Dose-area Product: 46.5 mGycm2. Estimated blood loss: Minimal Specimens: None Implants: 14 Fr x 15 cm Schon non-tunneled hemodialysis catheter TECHNIQUE/FINDINGS: Informed consent was obtained from the patient and documented in the medical record after discussion of risks and benefits. The patient was placed in the supine position. Preliminary sonographic evaluation of the right neck confirmed a patent and compressible right internal jugular vein. The neck was then prepped and draped in a standard sterile fashion. Subsequently, 1% lidocaine was infiltrated into the skin and subcutaneous tissues for local anesthesia. Then under continuous sonographic guidance an 18-gauge singlewall needle was advanced into the right internal jugular vein. A 0.035-in. wire was advanced. The needle was removed over the wire and the tract was dilated. Then, a 14 Fr x 15 cm Schon non-tunneled hemodialysis catheter was advanced. Catheter tip terminates at the cavoatrial junction without kinking or pneumothorax. The wire was then removed. Each lumen was tested and showed adequate bidirectional flow. The catheter was secured to the skin with Monocryl, flushed with heparin, and covered by a sterile dressing. The patient tolerated the procedure well without immediate duplication. IMPRESSION: Placement of a 14 Fr x 15 cm non-tunneled hemodialysis catheter via right internal jugular approach under fluoroscopic guidance. Catheter is ready for use. Signed by: Dr. Christine Lamb MD on 01/14/2018 11:30 AM
--- NOTE | 2018-01-14 13:34 | Discharge Summary ---
DISCHARGE DIAGNOSES: 1. Septic shock with multiorgan failure--resolved. 2. Acute hypoxemic respiratory failure requiring mechanical ventilation with intubation, status post extubation January 04, 2018. 3. Atrial fibrillation with rapid ventricular response--resolved. 4. Acute kidney injury on chronic kidney disease stage 3 requiring temporary hemodialysis. 5. Hypernatremia--resolved. 6. Nxs-JF-bynanogiz myocardial infarction. 7. Status post fall with negative imaging studies. 8. Elevated transaminases and lipase--resolved. 9. Metabolic encephalopathy secondary to underlying dementia at baseline. 10. Acute pancreatitis. CONSULTANTS: We had pulmonary/critical care, cardiology, and infectious disease. VITAL SIGNS: Temperature is 97, pulse 118, respiratory rate is 18, blood pressure 130/76, pulse ox 99% on room air. LAB FINDINGS: Show white count 10, hemoglobin 10, hematocrit is 32, platelets of 331. Chemistry: Sodium 144, potassium 4, chloride 108, bicarb 23, anion gap of 17, BUN is 50, creatinine is 1.7. Hutar-iy-iptb glucose is 133. His troponin on admission was elevated. Albumin was 2.4. Lipase was 79. LFTs downtrended to normal. Calcium is 8.5, phosphorus was 3. MICROBIOLOGY: Urine cultures negative. Four out of four blood cultures were negative. Sputum cultures were negative. Repeat sputum culture was negative. All sputum cultures were negative. IMAGING STUDIES: Chest x-ray on admission showed mild bilateral pulmonary venous congestion. CT brain showed no mass, acute hemorrhage or any large acute insults. Negative CT brain. CT abdomen and pelvis showed acute interstitial pancreatitis, showed some cholelithiasis but no evidence of choledocholithiasis. There was an abdominal aorta aneurysmal sac of 4.2 cm, which was within normal range. Abdominal ultrasound negative. Repeat CT brain was negative. CT pelvis, no acute fractures. HOSPITAL COURSE: This is a 77-year-old male with underlying Alzheimer's dementia, medical noncompliance, chronic kidney disease, who came into the ED in septic shock requiring IV pressors, fluid resuscitation, and started on broad-spectrum antibiotics. On admission patient was found to be in septic shock and multiorgan failure including elevated transaminases and acute pancreatitis as well as acute kidney injury. While here, pulmonary/critical care, ID, and cardiology were consulted. Patient was on broad-spectrum antibiotics. His blood, sputum and urine cultures were found to be negative. Patient was also in acute hypoxemic respiratory failure requiring intubation and was managed by pulmonary. He was extubated January 04, 2018. While in the hospital, he had developed an elevated troponin and AFib with RVR requiring cardiology consultation. Patient was on heparin drip while in the hospital as well as cardioprotective medications. Patient initially was in the process of getting a left heart cath, but due to the worsening condition of the patient and worsening comorbidities, it was advised by cardiology just to do medical management, which was explained to the family and they agreed. Patient will be discharged on oral Plavix, statin and cardioprotective meds in relation to the NSTEMI. In relation to his AFib, the patient was on amiodarone drip, then converted to oral amiodarone. Patient was then discharged on oral digoxin as well as rate-control medications, beta blockers, and oral Plavix. Family refused anticoagulation, which was a conversation taken care of by the cardiology service. The patient was not discharged on any Xarelto or any anticoagulation as per family's wishes. Patient also had acute kidney injury secondary to septic shock. Patient likely has baseline CKD stage 3. While here, his BUN was elevated, requiring 3 treatments of hemodialysis. Patient improved with a BUN of 50 prior to discharge. Dialysis catheter was removed. Patient needs to follow up with a [facility] as an outpatient very closely. While in the hospital, he did have a mechanical fall, and CT brain and pelvis were found to be negative. Patient was also found to have elevated LFTs and acute pancreatitis, which all resolved prior to discharge. His underlying metabolic encephalopathy is all due to his Alzheimer's dementia, and this is likely the patient's baseline. He worked with PT and OT, recommended alf facility. Patient's appetite was not as good as well, and he was on an appetite stimulant. On discharge, patient will be discharged on oral Cipro and Flagyl, as I discussed this with the infectious disease doctor, for 1 additional week. Otherwise patient was back to normal baseline with no other complaints. He will be discharged to a alf facility. On the day of discharge, vital signs stable, labs reviewed and stable. Patient seen and evaluated and examined thoroughly on the day of discharge with no other complaints. Patient's family verbalized understanding and agrees with plan of care to follow up accordingly as an outpatient with the primary care physician in 1 week and the consultants as described above in the next 2 weeks. DISCHARGE MEDICATIONS: See med reconciliation form. DISPOSITION: To alf facility. CONDITION: Stable. DIET: Heart healthy. FOLLOWUP: With your PCP in 1 week and the consultants as described above in 2 weeks. In the event of any worsening symptoms, patient advised to come back to the ED for further evaluation. Discharge summary took greater than 35 minutes. MAHNAZ RODRIGUEZ MD Job#: [id number] EV
--- NOTE | 2018-01-20 11:49 | Diagnostic Imaging Report ---
Procedure: Right internal jugular non-tunneled hemodialysis catheter placement with fluoroscopic guidance coning machine operator: Dr. Christine Lamb Pre-operative diagnosis: Requiring HD access. Post-operative diagnosis: Status post HD access placement Conscious Sedation: None The patient's heart rate and pulse oximetry were continuously monitored by the label remover nurse. Additional Medications: Lidocaine 1% for local anesthesia Fluoroscopy time: 0.2 minutes Dose-area Product: 46.5 mGycm2. Estimated blood loss: Minimal Specimens: None Implants: 14 Fr x 15 cm Schon non-tunneled hemodialysis catheter TECHNIQUE/FINDINGS: Informed consent was obtained from the patient and documented in the medical record after discussion of risks and benefits. The patient was placed in the supine position. Preliminary sonographic evaluation of the right neck confirmed a patent and compressible right internal jugular vein. The neck was then prepped and draped in a standard sterile fashion. Subsequently, 1% lidocaine was infiltrated into the skin and subcutaneous tissues for local anesthesia. Then under continuous sonographic guidance an 18-gauge singlewall needle was advanced into the right internal jugular vein. A 0.035-in. wire was advanced. The needle was removed over the wire and the tract was dilated. Then, a 14 Fr x 15 cm Schon non-tunneled hemodialysis catheter was advanced. Catheter tip terminates at the cavoatrial junction without kinking or pneumothorax. The wire was then removed. Each lumen was tested and showed adequate bidirectional flow. The catheter was secured to the skin with Monocryl, flushed with heparin, and covered by a sterile dressing. The patient tolerated the procedure well without immediate duplication. IMPRESSION: Placement of a 14 Fr x 15 cm non-tunneled hemodialysis catheter via right internal jugular approach under fluoroscopic guidance. Catheter is ready for use. Signed by: Dr. Christine Lamb MD on 01/14/2018 11:30 AM
== END 2018-01-13 17:53 | DRG 870 ==
LOC: ER 11:03 → ERHOLD 15:08 → ICU 20:15 → MED/SURG 01-06 18:20
PROVIDERS: ADMIT Internal Medicine; ATTEND Internal Medicine
PROC: 5A1955Z Respiratory Ventilation, Greater than 96 Consecutive Hours (ICD-10-PCS; 2017-12-28)
PROC: 0BH17EZ Insertion of Endotracheal Airway into Trachea, Via Natural or Artificial Opening (ICD-10-PCS; 2017-12-28)
PROC: 02HV33Z Insertion of Infusion Device into Superior Vena Cava, Percutaneous Approach (ICD-10-PCS; 2017-12-29)
PROC: B548ZZA Ultrasonography of Superior Vena Cava, Guidance (ICD-10-PCS; 2017-12-29)
PROC: 02HV33Z Insertion of Infusion Device into Superior Vena Cava, Percutaneous Approach (ICD-10-PCS; principal; 2018-01-09)
PROC: 5A1D70Z Performance of Urinary Filtration, Intermittent, Less than 6 Hours Per Day (ICD-10-PCS; 2018-01-10)
PROC: 5A1D70Z Performance of Urinary Filtration, Intermittent, Less than 6 Hours Per Day (ICD-10-PCS; 2018-01-12)
DX: A41.9 Sepsis, unspecified organism (principal); I21.4 Non-ST elevation (NSTEMI) myocardial infarction; R65.21 Severe sepsis with septic shock; I50.43 Acute on chronic combined systolic (congestive) and diastolic (congestive) heart failure; R57.0 Cardiogenic shock; G93.41 Metabolic encephalopathy; K85.90 Acute pancreatitis without necrosis or infection, unspecified; J96.01 Acute respiratory failure with hypoxia; J18.9 Pneumonia, unspecified organism; E87.2 Acidosis; N17.9 Acute kidney failure, unspecified; N39.0 Urinary tract infection, site not specified; E44.0 Moderate protein-calorie malnutrition; I13.0 Hypertensive heart and chronic kidney disease with heart failure and stage 1 through stage 4 chronic kidney disease, or unspecified chronic kidney disease; E87.0 Hyperosmolality and hypernatremia; I48.91 Unspecified atrial fibrillation; G30.9 Alzheimer's disease, unspecified; F02.80 Dementia in other diseases classified elsewhere, unspecified severity, without behavioral disturbance, psychotic disturbance, mood disturbance, and anxiety; Z83.3 Family history of diabetes mellitus; Z82.49 Family history of ischemic heart disease and other diseases of the circulatory system; R74.0 Nonspecific elevation of levels of transaminase and lactic acid dehydrogenase [LDH]; N18.9 Chronic kidney disease, unspecified; E83.39 Other disorders of phosphorus metabolism; E87.6 Hypokalemia; G20 Parkinson's disease; N18.3 Chronic kidney disease, stage 3 (moderate); Z66 Do not resuscitate; R13.10 Dysphagia, unspecified; R53.1 Weakness; W19.XXXA Unspecified fall, initial encounter; Y93.9 Activity, unspecified; Y92.230 Patient room in hospital as the place of occurrence of the external cause; Z68.28 Body mass index [BMI] 28.0-28.9, adult; L89.891 Pressure ulcer of other site, stage 1
CPT/HCPCS: 31500; 36415; 36556; 36600; 70450; 71045; 71046; 72192; 74018; 74176; 74230; 74470; 76700; 76937; 77001; 80048; 80053; 80061; 80202; 81001; 82150; 82550; 82553; 82805; 82948; 83605; 83690; 83735; 83880; 84100; 84484; 85025; 85610; 85730; 86704; 86705; 86706; 87040; 87070; 87086; 87116; 87205; 87206; 87340; 90962; 93005; 93306; 94002; 94003; 94640; 96367; 97139; 99284; C1751; J0330; J0692; J1160; J1450; J1644; J1650; J1940; J2150; J2185; J2250; J2270; J2405; J2543; J2920; J2997; J3370; J3480; J7030; J7050; J7060; J7070; Q9967